=== PATIENT | male | born 1990 | race Two or more races ===

== ENCOUNTER 2021-01-10 15:57 | Inpatient (IN) | payer MEDICAID ==
[~2021-01-10] VITALS: Ht 177.8 cm; Wt 73.5 kg
[2021-01-10] MEDS ORDERED: NIFE-35 PO (16:23)
[2021-01-10] MEDS ORDERED: ONDANSETRON 4 MG/2 ML VIAL IV ONE (16:30)
[2021-01-10] MEDS ORDERED: LORAZEPAM 2 MG/1 ML VIAL IV ONE (16:30)
[2021-01-10] MEDS ORDERED: ACETAMINOPHEN 325 MG TABLET PO ONE (16:30)
[2021-01-10] MEDS ORDERED: IV NORMAL SALINE 1000 ML BAG IV ONE ×2 (16:30→17:30)
[2021-01-10] MEDS ORDERED: HYDROMORPHONE 1 MG/1 ML DISP.SYRIN IV ONE (16:30)
[2021-01-10] MEDS ORDERED: ACETAMINOPHEN 325 MG TABLET ONE (16:46)
[2021-01-10] MEDS ORDERED: HYDROMORPHONE 1 MG/1 ML DISP.SYRIN ONE (16:46)
[2021-01-10] MEDS ORDERED: LORAZEPAM 2 MG/1 ML VIAL ONE (16:47)
[2021-01-10] MEDS ORDERED: ONDANSETRON 4 MG/2 ML VIAL ONE (16:47)
[2021-01-10 16:59] LABS: BASOPHILS # (AUTO) 0.1 K/uL (0.0-8.0); BASOPHILS % (AUTO) 0.5 % (0.0-2.0); HEMATOCRIT 27.3 % (36.7-47.1); HEMOGLOBIN 8.7 g/dL (12.5-16.3); LYMPHOCYTES # (AUTO) 0.5 K/uL (20.0-40.0); LYMPHOCYTES % (AUTO) 3.9 % (20.5-51.5); MEAN CORPUSCULAR HEMOGLOBIN 30.3 uug (23.8-33.4); MEAN CORPUSCULAR HGB CONC 32 g/dL (32.5-36.3); MEAN CORPUSCULAR VOLUME 95.1 fL (73.0-96.2); MONOCYTES # (AUTO) 0.4 K/uL (2.0-10.0); MONOCYTES % (AUTO) 3.4 % (0.0-11.0); NEUTROPHILS # (AUTO) 12.1 K/uL (1.8-8.9); NEUTROPHILS % (AUTO) 92.2 % (38.5-71.5); PLATELET COUNT (AUTO) 134 K/uL (152-348); RED BLOOD CELL COUNT(AUTO) 2.87 MIL/uL (4.06-5.63); WHITE BLOOD COUNT (AUTO) 13.2 K/uL (3.6-10.2)
[2021-01-10 17:03] LABS: CREATININE 6.6 mg/dL (0.6-1.3); POTASSIUM 5.3 mmol/L (3.5-5.1)
[2021-01-10] MEDS ORDERED: DEXAMETHASONE SOD PHOSPHATE 4 MG INJ IV ONE (17:15)
[2021-01-10] MEDS ORDERED: CEFTRIAXONE 2 G in IV DEXTROSE 5% 100 ML IV ONE (17:15)
[2021-01-10] MEDS ORDERED: AZITHROMYCIN IV 500 MG in IV DEXTROSE 5% 250 ML IV ONE (17:15)
[2021-01-10 17:24] LABS: BILIRUBIN,DIRECT 0.5 mg/dL (0.0-0.2); BILIRUBIN,TOTAL 2.6 mg/dL (0.2-1.0); TOTAL PROTEIN, SERUM 6.6 g/dL (6.4-8.2)
[2021-01-10] MEDS ORDERED: CEFTRIAXONE 1 G VIAL ONE (17:24)
[2021-01-10] MEDS ORDERED: AZITHROMYCIN 500MG/ D5W 250ML IVPB **ER PYXIS ONLY IV ONE (17:24)
[2021-01-10] MEDS ORDERED: DEXAMETHASONE SOD PHOSPHATE 10 MG INJ ONE (17:24)
[2021-01-10] MEDS ORDERED: Z GUARD REMEDY PASTE 57 GM TUBE TOP PRN (18:00)
[2021-01-10] MEDS ORDERED: MAGNESIUM HYDROXIDE 30 ML LIQUID UDC PO PRN (18:00)
[2021-01-10] MEDS ORDERED: ONDANSETRON 4 MG/2 ML VIAL IV PRN (18:00)
[2021-01-10] MEDS ORDERED: ALBUTEROL SULFATE 2.5 MG/3 ML NEBU NEB PRN (18:00)
--- NOTE | 2021-01-10 18:24 | NUR ---
Patient is resting comfortably on gurney with eyes closed, pending callback from 3rd floor telemetry nurse Josie for SBAR.
--- NOTE | 2021-01-10 19:08 | NUR ---
IV normal saline bolus & IV Zithromax are still infusing, endorsed to JASON Banda accordingly
--- NOTE | 2021-01-10 19:52 | NUR ---
Patient report given to JASON Ocampo. Patient will be admitted to TELE under Dr. Fraser.
[2021-01-10 20:07] VITALS: BP 107/74
--- NOTE | 2021-01-10 20:07 | NUR ---
Received patient from ED via gurney admitted for PNA under Dr. Whiting. Patient is AAOx4. On 2L NC with O2 @ 97% denies SOB. Temp 98.8. Denies pain and discomfort at this time. Right FA IV patent and intact with NS completing. Safety measures in place, bed low and locked. PUI isolation measures in place.
[2021-01-11 00:12] VITALS: BP 119/76
[2021-01-11 04:12] VITALS: BP 130/86
[2021-01-11 06:17] LABS: BASOPHILS % (AUTO) 0.3 % (0.0-2.0); EOSINOPHILS % (AUTO) 0.2 % (0.0-7.0); HEMATOCRIT 27.6 % (36.7-47.1); HEMOGLOBIN 8.5 g/dL (12.5-16.3); LYMPHOCYTES # (AUTO) 0.5 K/uL (20.0-40.0); LYMPHOCYTES % (AUTO) 3.3 % (20.5-51.5); MEAN CORPUSCULAR HEMOGLOBIN 30.1 uug (23.8-33.4); MEAN CORPUSCULAR HGB CONC 31 g/dL (32.5-36.3); MEAN CORPUSCULAR VOLUME 97.4 fL (73.0-96.2); MONOCYTES # (AUTO) 0.4 K/uL (2.0-10.0); NEUTROPHILS # (AUTO) 13.8 K/uL (1.8-8.9); NEUTROPHILS % (AUTO) 93.2 % (38.5-71.5); PLATELET COUNT (AUTO) 127 K/uL (152-348); RED BLOOD CELL COUNT(AUTO) 2.83 MIL/uL (4.06-5.63); WHITE BLOOD COUNT (AUTO) 14.9 K/uL (3.6-10.2)
[2021-01-11 06:36] LABS: MAGNESIUM 2.3 mg/dL (1.8-2.4); PHOSPHOROUS 5.8 mg/dL (2.5-4.9); POTASSIUM 5.1 mmol/L (3.5-5.1)
--- NOTE | 2021-01-11 07:20 | NUR ---
Patient is asleep but easily arousable. On 2 Lpm via nc. Breathing even and non labored. No facial grimacing noted. Right chest permacath intact, dressing is dry. IV site on RFA intact and patent. Bed is low and locked. Safety measures maintained. Call light within reach. Will continue to monitor.
[2021-01-11 07:22] LABS: CREATININE 8.1 mg/dL (0.6-1.3)
--- NOTE | 2021-01-11 07:49 | NUR ---
RECEIVED CRITICAL LAB RESULT CREATININE 8.1, INFORMED DR. TAMMY QUIGLEY AT THIS TIME. WILL CONTINUE TO MONITOR.
[2021-01-11] MEDS: NIFEdipine XL 30 MG TABSR PO SCH ×2 (08:35→18:02)
[2021-01-11] MEDS ORDERED: VANCOMYCIN IV 500 MG in IV DEXTROSE 5% 100 ML IV PRN (10:30)
--- NOTE | 2021-01-11 10:50 | NUR ---
Received order to give Vancomycin 1250mg IV. However, [facility] dialysis nurse is here per SOFTWARE CLIENT ARCHITECT Chester's order to dialyze patient. Informed Mojgan at pharmacy said she will change dose and time. Will cont to monitor.
[2021-01-11] MEDS ORDERED: VANCOMYCIN IV 1,250 MG in IV DEXTROSE 5% 250 ML IV ONE ×2 (11:00→16:00)
--- NOTE | 2021-01-11 12:30 | NUR ---
patient at dialysis at this time. asked pt if he urinated but he said not yet. will cont to monitor.
--- NOTE | 2021-01-11 12:33 | NUR ---
Dialysis finished, with output 1 liter. Denies chest pain or sob. In no acute distress. Will continue to monitor.
--- NOTE | 2021-01-11 13:20 | NUR ---
Seen and examined by STACI Feng, report given.
--- NOTE | 2021-01-11 13:48 | NUR ---
Spoke to Katie HARRINGTON Walkmore, she will come at 5pm to do liver us. Per Chester [employer], cta may be done tomorrow. Spoke to Cherie at radiology, scheduled for 8am cta abdomen/pelvis per order. Patient needs to be npo 4-6 hours prior. Patient made aware.
[2021-01-11] MEDS: PIPERACILLIN/TAZO 2.25 G in IV DEXTROSE 5% 50 ML IV SCH ×2 (14:14→21:25)
--- NOTE | 2021-01-11 14:54 | NUR ---
Patient informed about US tech coming at 5pm today, verbalized understanding. Also made aware for tomorrow's cta abdomen and pelvis at 8am. Answered pt's questions re procedure, also signed contrast administration questionnaire and consent. Patient verbalized understanding. Will continue to monitor.
[2021-01-11 14:57] LABS: *BILIRUBIN,URIN NEGATIVE (NEGATIVE); *BLOOD, URINE 2+ (NEGATIVE); *CLARITY,URINE SLIGHTLY CLOUDY (CLEAR); *COLOR,URINE YELLOW (YELLOW); *KETONES,URINE NEGATIVE (NEGATIVE); *UROBILINOGEN,URINE 0.2 E.U./dl (NORMAL); LEUKOCYTE ESTERASE ,URINE TRACE (NEGATIVE); NITRITE, URINE NEGATIVE (NEGATIVE); PH,URINE 8.5 (5.0-8.0); UGLUCOSE 2+ (NEGATIVE)
[2021-01-11 16:19] VITALS: BP 140/88
[2021-01-11] MEDS ORDERED: NIFE-34 PO (16:49)
[2021-01-11] MEDS ORDERED: BUPR-53 PO (16:50)
[2021-01-11] MEDS ORDERED: BENA40TA8 PO (16:51)
[2021-01-11] MEDS ORDERED: LABE100T5 PO (16:51)
[2021-01-11] MEDS ORDERED: OMEP20CA15 PO (16:52)
[2021-01-11] MEDS ORDERED: FAMO20TA8 PO (16:53)
[2021-01-11] MEDS ORDERED: TRAZ-257 PO (16:54)
[2021-01-11] MEDS ORDERED: CEFTRIAXONE 1 G in IV DEXTROSE 5% 50 ML IV SCH (17:00)
[2021-01-11 17:10] LABS: BACTERIA,URINE FEW /HPF (NONE SEEN); RBC,URINE 0-3 /HPF (0-3); SQUAMOUS EPITHELIAL CELL,UR FEW /HPF (NONE SEEN); WBC,URINE 0-3 /HPF (0-3)
[2021-01-11] MEDS ORDERED: LABETALOL HCL 100 MG TABLET PO SCH (17:15)
[2021-01-11 18:00] VITALS: BP 160/112
[2021-01-11] MEDS: ACETAMINOPHEN 325 MG TABLET PO PRN (18:04)
--- NOTE | 2021-01-11 18:15 | NUR ---
checked bp and noted pt warm to touch. bp noted 160/112 and temp 100.2. procardia and tylenol prn given. Turbine Operator Chester made aware. Patient not in acute distress. Denies chest pain. Will continue to monitor.
--- NOTE | 2021-01-11 18:21 | NUR ---
CHILD DEVELOPMENT PROFESSOR Chester with new order for clonidine 0.1mg po q6hr prn for sbp>160, noted and carried out. Patient made aware. Will continue to monitor.
[2021-01-11] MEDS ORDERED: CLONIDINE HCL 0.1 MG TABLET PO PRN (18:30)
[2021-01-11] MEDS: AZITHROMYCIN IV 500 MG in IV DEXTROSE 5% 250 ML IV SCH (18:42)
--- NOTE | 2021-01-11 18:51 | NUR ---
Rechecked bp 156/97 hr90 temp 98.8. In no acute distress. Denies pain. Isolation measures maintained. Patient is comfortably watching tv. Will continue to monitor and endorse accordingly.
[2021-01-11 19:31] LABS: FERRITIN > 2000 ng/mL (26-388)
[2021-01-11 19:32] LABS: LACTATE DEHYDROGENASE 458 U/L (85-227)
[2021-01-11 20:34] VITALS: BP 136/101
[2021-01-11] MEDS: TRAZODONE 100 MG TABLET PO SCH (20:55)
[2021-01-11] MEDS: LABETALOL HCL 100 MG TABLET PO SCH (20:56)
[2021-01-11] MEDS: HEPARIN SODIUM,PORCINE 5,000 UNITS/ML VIAL SQ SCH (20:59)
--- NOTE | 2021-01-11 21:43 | NUR ---
Received patient resting in bed. No s/s of acute distress noted at this time. patient on 2L NC with O2 @ 96%, denies SOB and pain. Initial temp 100.5, providing cooling measures and rechecked 98.4 oral. Patent denies feeling febrile. Notified by lab COVID PCR Negative. Right FA IV patent and intact. Patient's family arrived to the security desk to drop off his wallet and epstein, ultimately they kept the wallet and left the patient with their ID and Medical card. Both items are at the patients bedside. Safety measures in place, bed locked in lowest position.
[2021-01-12 00:57] VITALS: BP 144/100
[2021-01-12] MEDS: HYDROCODONE/APAP 5-325MG TABLET PO PRN ×2 (03:23→15:00)
[2021-01-12] MEDS: PIPERACILLIN/TAZO 2.25 G in IV DEXTROSE 5% 50 ML IV SCH ×3 (05:03→21:15)
[2021-01-12 05:26] VITALS: BP 150/101
[2021-01-12 05:54] VITALS: BP 140/95
--- NOTE | 2021-01-12 06:41 | NUR ---
Patient resting in bed. On 2L NC O2 @ 95%, denies SOB. No s/s of acute distress noted at this time. Denies pain. Patient NPO after midnight maintained, consent for CTA Abdomen/pelvis signed and in chart. Safety measures in place and will endorse to oncoming shift.
[2021-01-12 06:54] LABS: BASOPHILS % (AUTO) 0.5 % (0.0-2.0); EOSINOPHILS # (AUTO) 0.1 K/uL (0.0-0.7); HEMATOCRIT 24.5 % (36.7-47.1); HEMOGLOBIN 7.8 g/dL (12.5-16.3); LYMPHOCYTES # (AUTO) 0.4 K/uL (20.0-40.0); LYMPHOCYTES % (AUTO) 6.6 % (20.5-51.5); MEAN CORPUSCULAR HEMOGLOBIN 30.4 uug (23.8-33.4); MEAN CORPUSCULAR HGB CONC 32 g/dL (32.5-36.3); MONOCYTES # (AUTO) 0.6 K/uL (2.0-10.0); MONOCYTES % (AUTO) 8.6 % (0.0-11.0); NEUTROPHILS # (AUTO) 5.4 K/uL (1.8-8.9); NEUTROPHILS % (AUTO) 82.3 % (38.5-71.5); PLATELET COUNT (AUTO) 108 K/uL (152-348); RED BLOOD CELL COUNT(AUTO) 2.57 MIL/uL (4.06-5.63); WHITE BLOOD COUNT (AUTO) 6.6 K/uL (3.6-10.2)
[2021-01-12 07:13] LABS: MAGNESIUM 2.2 mg/dL (1.8-2.4); PHOSPHOROUS 4.2 mg/dL (2.5-4.9); POTASSIUM 4.2 mmol/L (3.5-5.1); VANCOMYCIN,RANDOM 25.4 ug/mL (18.0-26.0)
[2021-01-12 07:17] LABS: CREATININE 7.8 mg/dL (0.6-1.3)
--- NOTE | 2021-01-12 07:35 | NUR ---
Pt in bed resting. On 2L NC saturating at 96%. Pt is A&Ox4 south sudanese speaking. No complaints of pain or discomfort. Pt has been NPO since midnight for morning CTA. Will continue to monitor, safety measures in place, bed in lowest position and call light in reach
[2021-01-12] MEDS ORDERED: IV NORMAL SALINE 250 ML IV ONE (07:50)
[2021-01-12] MEDS ORDERED: IOHEXOL 350 100 ML INFUS..BTL ONE (07:50)
[2021-01-12] MEDS ORDERED: SWABABLE VALVE TRANSFER SET EA MC ONE (07:50)
[2021-01-12] MEDS: buPROPion XL 150 MG TAB.SR.24H PO SCH (08:00)
[2021-01-12] MEDS: LABETALOL HCL 100 MG TABLET PO SCH ×2 (08:00→20:33)
[2021-01-12] MEDS: FAMOTIDINE 20 MG TABLET PO SCH (08:00)
[2021-01-12] MEDS: NIFEdipine XL 30 MG TABSR PO SCH ×2 (08:00→16:33)
[2021-01-12] MEDS: HEPARIN SODIUM,PORCINE 5,000 UNITS/ML VIAL SQ SCH (08:03)
[2021-01-12 09:20] LABS: BILIRUBIN,DIRECT 0.3 mg/dL (0.0-0.2); BILIRUBIN,TOTAL 0.9 mg/dL (0.2-1.0); TOTAL PROTEIN, SERUM 5.7 g/dL (6.4-8.2)
[2021-01-12 11:36] VITALS: BP 125/80
--- NOTE | 2021-01-12 13:49 | NUR ---
Pt just finished Dialysis. 1,100 output. BP 162/90 HR 94
[2021-01-12 16:00] VITALS: BP 141/78
[2021-01-12] MEDS: ACETAMINOPHEN 325 MG TABLET PO PRN (16:34)
[2021-01-12] MEDS: AZITHROMYCIN IV 500 MG in IV DEXTROSE 5% 250 ML IV SCH (17:29)
--- NOTE | 2021-01-12 18:39 | NUR ---
EOSR Pt laying in bed resting. Blood Culture results from 01/10/21 came back and Magda was informed. Pt is on 2L NC saturating at 96%, A&Ox4 Jamaican speaking. No acute distress noted. All medications given as ordered, all needs were met, No complaints of pain or discomfort. Safety measures in place, call light in reach. Will endorse to oncoming nurse.
[2021-01-12 20:12] VITALS: BP 117/51
[2021-01-12] MEDS: TRAZODONE 100 MG TABLET PO SCH (20:33)
[2021-01-12] MEDS ORDERED: APIXABAN 5 MG TABLET PO SCH (21:00)
[2021-01-13 00:12] VITALS: BP 109/70
[2021-01-13] MEDS: ACETAMINOPHEN 325 MG TABLET PO PRN ×2 (00:13→21:29)
[2021-01-13 04:09] VITALS: BP 124/65
[2021-01-13] MEDS: PIPERACILLIN/TAZO 2.25 G in IV DEXTROSE 5% 50 ML IV SCH (05:49)
[2021-01-13 05:50] LABS: BASOPHILS % (AUTO) 0.7 % (0.0-2.0); EOSINOPHILS # (AUTO) 0.3 K/uL (0.0-0.7); EOSINOPHILS % (AUTO) 5.3 % (0.0-7.0); HEMATOCRIT 24.9 % (36.7-47.1); HEMOGLOBIN 7.9 g/dL (12.5-16.3); LYMPHOCYTES # (AUTO) 0.6 K/uL (20.0-40.0); LYMPHOCYTES % (AUTO) 10.7 % (20.5-51.5); MEAN CORPUSCULAR HEMOGLOBIN 30.1 uug (23.8-33.4); MEAN CORPUSCULAR HGB CONC 32 g/dL (32.5-36.3); MEAN CORPUSCULAR VOLUME 94.4 fL (73.0-96.2); MONOCYTES # (AUTO) 0.7 K/uL (2.0-10.0); MONOCYTES % (AUTO) 12.1 % (0.0-11.0); NEUTROPHILS # (AUTO) 4.2 K/uL (1.8-8.9); NEUTROPHILS % (AUTO) 71.2 % (38.5-71.5); PLATELET COUNT (AUTO) 89 K/uL (152-348); RED BLOOD CELL COUNT(AUTO) 2.63 MIL/uL (4.06-5.63); WHITE BLOOD COUNT (AUTO) 5.9 K/uL (3.6-10.2)
[2021-01-13 06:00] LABS: CREATININE 7.2 mg/dL (0.6-1.3); MAGNESIUM 2.4 mg/dL (1.8-2.4); POTASSIUM 3.9 mmol/L (3.5-5.1); VANCOMYCIN,RANDOM 16.2 ug/mL (18.0-26.0)
--- NOTE | 2021-01-13 07:30 | NUR ---
Patient is received awake alert and oriented times 4. Patient is Ghanaian speaking but understands some Hebrew. Patient is on 2L of oxygen. No sign of distress noted. Safety precautions are in place. Will continue to monitor.
--- NOTE | 2021-01-13 08:30 | NUR ---
Patient, Platelet is 89. COURTESY BOOTH CASHIER aware. Will continue to monitor.
[2021-01-13] MEDS: buPROPion XL 150 MG TAB.SR.24H PO SCH (09:18)
[2021-01-13] MEDS: FAMOTIDINE 20 MG TABLET PO SCH (09:18)
[2021-01-13] MEDS: LABETALOL HCL 100 MG TABLET PO SCH ×2 (09:23→21:27)
[2021-01-13] MEDS: NIFEdipine XL 30 MG TABSR PO SCH ×2 (09:23→17:49)
--- NOTE | 2021-01-13 11:00 | NUR ---
Patient IV is infiltrated. Patient right is edematous and warm to touch. Removed IV and treated with heat pack and elevated arm. Made HARDWOOD FLOOR LAYER aware. Will try reinsertion.
[2021-01-13 11:27] VITALS: BP 140/85
--- NOTE | 2021-01-13 14:50 | NUR ---
Spoke with MD Talbot, patient has permacath removal consent signed and time out place in the chart. Will continue to monitor
[2021-01-13 15:06] VITALS: BP 113/74
[2021-01-13] MEDS ORDERED: LIDOCAINE 1%-EPI 1:100,000 20 ML VIAL IJ ONE (16:45)
[2021-01-13] MEDS ORDERED: MORPHINE SULFATE 4 MG/1 ML DISP.SYRIN IV ONE (16:45)
--- NOTE | 2021-01-13 17:00 | NUR ---
MD did not need for procedure. Was able to remove catheter without lidocaine. Will continue to monitor.
[2021-01-13] MEDS: AZITHROMYCIN 250 MG TABLET PO SCH (17:49)
--- NOTE | 2021-01-13 19:05 | NUR ---
Permacath was removed in a bedside procedure. Patient tolerated procedure well. Patient is not resting in bed with no sign of distress noted. Gave all medications as ordered. Will endorse to the oncoming nurse.
--- NOTE | 2021-01-13 20:00 | NUR ---
resting in bed, no acute distress noted, ,alert ,oriented x4, skin intact , warm to touch.on tele sinus,76, oxygen inhal.at 2l/min via nc.voided freely well.no dialysis access at present.platelet count 89, will recheck in am.
[2021-01-13 20:16] VITALS: BP 175/89
[2021-01-13] MEDS: HYDROCODONE/APAP 5-325MG TABLET PO PRN (20:22)
--- NOTE | 2021-01-13 21:00 | NUR ---
temp at this time 100.5, tylenol given as ordered, cooling measures done.,air conditioning unit regulated.,iv site intact and patent on left wrist.
[2021-01-13] MEDS: TRAZODONE 100 MG TABLET PO SCH (21:34)
[2021-01-14] VITALS (7 sets, daily range): BP systolic 118–138; BP diastolic 70–83
--- NOTE | 2021-01-14 02:17 | NUR ---
slept on and off,dressing on right upper chest intact and dry.norco given earlier effective.
[2021-01-14 07:03] LABS: BASOPHILS % (AUTO) 0.7 % (0.0-2.0); EOSINOPHILS # (AUTO) 0.4 K/uL (0.0-0.7); EOSINOPHILS % (AUTO) 5.4 % (0.0-7.0); HEMOGLOBIN 8.5 g/dL (12.5-16.3); LYMPHOCYTES # (AUTO) 0.8 K/uL (20.0-40.0); LYMPHOCYTES % (AUTO) 12.2 % (20.5-51.5); MEAN CORPUSCULAR HEMOGLOBIN 30.7 uug (23.8-33.4); MEAN CORPUSCULAR HGB CONC 33 g/dL (32.5-36.3); MONOCYTES # (AUTO) 0.8 K/uL (2.0-10.0); MONOCYTES % (AUTO) 11.5 % (0.0-11.0); NEUTROPHILS # (AUTO) 4.8 K/uL (1.8-8.9); NEUTROPHILS % (AUTO) 70.2 % (38.5-71.5); PLATELET COUNT (AUTO) 93 K/uL (152-348); RED BLOOD CELL COUNT(AUTO) 2.76 MIL/uL (4.06-5.63); WHITE BLOOD COUNT (AUTO) 6.8 K/uL (3.6-10.2)
[2021-01-14 07:16] LABS: MAGNESIUM 2.6 mg/dL (1.8-2.4); PHOSPHOROUS 6.9 mg/dL (2.5-4.9); POTASSIUM 3.9 mmol/L (3.5-5.1)
[2021-01-14 07:31] LABS: CREATININE 9.9 mg/dL (0.6-1.3)
--- NOTE | 2021-01-14 08:00 | NUR ---
received report on pt, awake alert and oriented x4, pt on 2L O2 saturating at 97%, no signs of distress, no reports of pain noted. pt ambulatory to restroom, steady gait. Pt has IV access on the left wrist 20g. bed in low and locked position, call light within reach, safety precautions in place, will continue with plan of care.
--- NOTE | 2021-01-14 09:00 | NUR ---
pt went down for procedure
[2021-01-14 09:56] LABS: EOSINOPHILS % (MANUAL) 8 % (0-8); LYMPHOCYTES % (MANUAL) 14 % (20-40); MONOCYTES % (MANUAL) 9 % (2-10); NEUTROPHILS % (MANUAL) 69 % (42-75)
[2021-01-14] MEDS: LABETALOL HCL 100 MG TABLET PO SCH ×2 (09:59→20:37)
[2021-01-14] MEDS: FAMOTIDINE 20 MG TABLET PO SCH (09:59)
[2021-01-14] MEDS: NIFEdipine XL 30 MG TABSR PO SCH ×2 (09:59→18:05)
[2021-01-14] MEDS: buPROPion XL 150 MG TAB.SR.24H PO SCH (10:00)
[2021-01-14] MEDS: AZITHROMYCIN 250 MG TABLET PO SCH (18:05)
--- NOTE | 2021-01-14 19:04 | NUR ---
pt in bed resting, A/Ox4, on 2L of O2 saturating at 98, no signs of distress, no reports of pain noted. pt ambulatory, urinal at bedside, IV access on the left wrist 20g intact patent. all medications given, beninese speaking, cooperative, bed in low and locked position, call light within reach, safety precautions in place, will endorse to oncoming nurse.
--- NOTE | 2021-01-14 20:00 | NUR ---
AWAKE ALERT X3 SPEAKS KINYARWANDA.NO COMPLAINTS VITAL SIGNS WITHIN NORMAL REACH.RIGHT CHEST DRESSING CHANGEDNO COMPLAINTS MADE.
[2021-01-14] MEDS: TRAZODONE 100 MG TABLET PO SCH (20:37)
[2021-01-15 00:08] VITALS: BP 127/72
[2021-01-15 04:12] VITALS: BP 126/72
[2021-01-15 06:14] LABS: BASOPHILS # (AUTO) 0.1 K/uL (0.0-8.0); BASOPHILS % (AUTO) 0.9 % (0.0-2.0); EOSINOPHILS # (AUTO) 0.7 K/uL (0.0-0.7); EOSINOPHILS % (AUTO) 11.6 % (0.0-7.0); HEMATOCRIT 25.8 % (36.7-47.1); HEMOGLOBIN 8.4 g/dL (12.5-16.3); LYMPHOCYTES % (AUTO) 18.5 % (20.5-51.5); MEAN CORPUSCULAR HEMOGLOBIN 30.5 uug (23.8-33.4); MEAN CORPUSCULAR HGB CONC 32 g/dL (32.5-36.3); MONOCYTES # (AUTO) 0.8 K/uL (2.0-10.0); MONOCYTES % (AUTO) 13.6 % (0.0-11.0); NEUTROPHILS # (AUTO) 3.1 K/uL (1.8-8.9); NEUTROPHILS % (AUTO) 55.4 % (38.5-71.5); PLATELET COUNT (AUTO) 109 K/uL (152-348); RED BLOOD CELL COUNT(AUTO) 2.74 MIL/uL (4.06-5.63); WHITE BLOOD COUNT (AUTO) 5.6 K/uL (3.6-10.2)
[2021-01-15 06:28] LABS: MAGNESIUM 2.8 mg/dL (1.8-2.4); PHOSPHOROUS 7.7 mg/dL (2.5-4.9); POTASSIUM 3.7 mmol/L (3.5-5.1)
[2021-01-15 06:36] LABS: CREATININE 11.8 mg/dL (0.6-1.3)
[2021-01-15] MEDS: LABETALOL HCL 100 MG TABLET PO SCH ×2 (08:20→20:20)
[2021-01-15] MEDS: buPROPion XL 150 MG TAB.SR.24H PO SCH (08:21)
[2021-01-15] MEDS: FAMOTIDINE 20 MG TABLET PO SCH (08:21)
[2021-01-15] MEDS: NIFEdipine XL 30 MG TABSR PO SCH ×2 (08:21→17:43)
--- NOTE | 2021-01-15 11:00 | NUR ---
SPOKE WITH DR. ESTES & James PETERS LIFE SCIENCES TEACHER TODAY RE POSSIBLE INSERTION OF PERMACATH TOMORROW. VERBALIZED UNDERSTANDING.
[2021-01-15 11:52] VITALS: BP 145/94
[2021-01-15 16:00] VITALS: BP 140/87
[2021-01-15] MEDS: TRAZODONE 100 MG TABLET PO SCH (20:19)
[2021-01-15 20:20] VITALS: BP 136/85
--- NOTE | 2021-01-15 21:00 | NUR ---
Received patient resting in bed, AAOx4. No s/s of acute distress noted at this time. Patient on 2L NC denies SOB. Right chest dressing clean, dry, and intact. Left wrist 20g IV patent and intact. Safety measures in place, bed locked and in lowest position.
[2021-01-16 00:10] VITALS: BP 147/92
[2021-01-16 04:25] VITALS: BP 141/88
[2021-01-16 06:23] LABS: HEPATITIS B SURFACE AG NEGATVE
[2021-01-16 06:24] LABS: HEPATITIS B SURFACE AB REACTIVE
[2021-01-16 06:30] LABS: BASOPHILS # (AUTO) 0.1 K/uL (0.0-8.0); BASOPHILS % (AUTO) 1.4 % (0.0-2.0); EOSINOPHILS # (AUTO) 0.7 K/uL (0.0-0.7); EOSINOPHILS % (AUTO) 15.1 % (0.0-7.0); HEMATOCRIT 27.8 % (36.7-47.1); HEMOGLOBIN 8.9 g/dL (12.5-16.3); LYMPHOCYTES # (AUTO) 1.2 K/uL (20.0-40.0); LYMPHOCYTES % (AUTO) 23.4 % (20.5-51.5); MEAN CORPUSCULAR HEMOGLOBIN 30.1 uug (23.8-33.4); MEAN CORPUSCULAR HGB CONC 32 g/dL (32.5-36.3); MEAN CORPUSCULAR VOLUME 93.8 fL (73.0-96.2); MONOCYTES # (AUTO) 0.6 K/uL (2.0-10.0); MONOCYTES % (AUTO) 12.4 % (0.0-11.0); NEUTROPHILS # (AUTO) 2.4 K/uL (1.8-8.9); NEUTROPHILS % (AUTO) 47.7 % (38.5-71.5); PLATELET COUNT (AUTO) 142 K/uL (152-348); RED BLOOD CELL COUNT(AUTO) 2.96 MIL/uL (4.06-5.63); WHITE BLOOD COUNT (AUTO) 4.9 K/uL (3.6-10.2)
[2021-01-16 06:58] LABS: POTASSIUM 3.7 mmol/L (3.5-5.1)
[2021-01-16 07:06] LABS: CREATININE 13.7 mg/dL (0.6-1.3)
--- NOTE | 2021-01-16 07:14 | NUR ---
Critical lab results received, Creatinine 13.7 and phosphorous 9.0. Notified physician cork insulation installer, Darin Rouse NP. No new orders at this time, will endorse to oncoming shift.
[2021-01-16 08:00] VITALS: BP 146/91
--- NOTE | 2021-01-16 08:00 | NUR ---
Received change of shift report on pt. awake alert and oriented x4. on tele monitor NSR, pt on O2 via NC at 2L, pt keeps it on intermittently but is saturating well at 95%. pt ambulatory with BRP, steady gait. IV access on the left wrist 20g saline lock. Pt has dressing where old permacath was removed, clean dry and intact. pt cooperative, bed in low and locked position, no reports of pain no signs of distress, call light within reach, will continue with plan of care.
[2021-01-16] MEDS: FAMOTIDINE 20 MG TABLET PO SCH (09:00)
[2021-01-16] MEDS: NIFEdipine XL 30 MG TABSR PO SCH ×2 (09:00→16:58)
[2021-01-16] MEDS: buPROPion XL 150 MG TAB.SR.24H PO SCH (09:00)
[2021-01-16] MEDS: LABETALOL HCL 100 MG TABLET PO SCH ×2 (09:01→20:33)
[2021-01-16] MEDS ORDERED: VANCOMYCIN IV 1,000 MG in IV DEXTROSE 5% 250 ML IV ONE (10:00)
[2021-01-16] MEDS ORDERED: BISACODYL 5 MG TABLET.DR PO ONE ×2 (11:15→11:30)
[2021-01-16 11:34] VITALS: BP 153/96
--- NOTE | 2021-01-16 13:01 | NUR ---
WOUND CARE CONSULT: PT HAS DRY INTACT DRESSING TO RT CHEST WHERE HE HAD PREVIOUS DIALYSIS CATH. NO DRAINAGE NOTED. DEFER TO PMD. PT IS INDEPENDENT WITH BED MOBILITY. CURRENT NADINE SCORE IS 22. WILL SEE PRN.
[2021-01-16] MEDS ORDERED: MORPHINE SULFATE 4 MG/1 ML DISP.SYRIN IV ONE (13:45)
[2021-01-16 16:00] VITALS: BP 159/99
[2021-01-16] MEDS: HYDROCODONE/APAP 5-325MG TABLET PO PRN (16:58)
[2021-01-16] MEDS: TRAZODONE 100 MG TABLET PO SCH (20:33)
[2021-01-16 21:15] VITALS: BP 147/87
--- NOTE | 2021-01-16 22:00 | NUR ---
took over care for this pt, no acute distress noted, alert and oriented,needs attended to.anita cath on left chest wall,dressing dry and intact.for dialysis in am. ct angiogram to be done after dialysis.
[2021-01-17 00:06] VITALS: BP 145/88
[2021-01-17] MEDS: HYDROCODONE/APAP 5-325MG TABLET PO PRN ×2 (00:29→05:50)
--- NOTE | 2021-01-17 00:29 | NUR ---
equested norco tablet for abdominal pain,given as ordered and relief afforded.slept intermittently.
[2021-01-17 04:06] VITALS: BP 146/91
[2021-01-17 06:35] LABS: BASOPHILS # (AUTO) 0.1 K/uL (0.0-8.0); BASOPHILS % (AUTO) 1.2 % (0.0-2.0); EOSINOPHILS # (AUTO) 0.7 K/uL (0.0-0.7); EOSINOPHILS % (AUTO) 11.8 % (0.0-7.0); HEMOGLOBIN 9.7 g/dL (12.5-16.3); LYMPHOCYTES # (AUTO) 1.2 K/uL (20.0-40.0); LYMPHOCYTES % (AUTO) 18.2 % (20.5-51.5); MEAN CORPUSCULAR HEMOGLOBIN 30.2 uug (23.8-33.4); MEAN CORPUSCULAR HGB CONC 32 g/dL (32.5-36.3); MEAN CORPUSCULAR VOLUME 93.5 fL (73.0-96.2); MONOCYTES # (AUTO) 0.5 K/uL (2.0-10.0); MONOCYTES % (AUTO) 8.4 % (0.0-11.0); NEUTROPHILS # (AUTO) 3.8 K/uL (1.8-8.9); NEUTROPHILS % (AUTO) 60.4 % (38.5-71.5); PLATELET COUNT (AUTO) 190 K/uL (152-348); RED BLOOD CELL COUNT(AUTO) 3.21 MIL/uL (4.06-5.63); WHITE BLOOD COUNT (AUTO) 6.4 K/uL (3.6-10.2)
[2021-01-17 06:52] LABS: MAGNESIUM 3.1 mg/dL (1.8-2.4); POTASSIUM 4.3 mmol/L (3.5-5.1)
[2021-01-17 06:55] LABS: CREATININE 15.2 mg/dL (0.6-1.3); PHOSPHOROUS 10.5 mg/dL (2.5-4.9)
[2021-01-17 08:00] VITALS: BP 137/89
--- NOTE | 2021-01-17 08:00 | NUR ---
AWAKE ALERT AND ORIENTED X3 NO SS OF PAIN OR SOB. PATIENT PUT ON O2 AT 2L NC IN SPITE OF O2 SAT AT 96-98%.
[2021-01-17] MEDS ORDERED: IOHEXOL 350 100 ML INFUS..BTL ONE (08:09)
[2021-01-17] MEDS ORDERED: SWABABLE VALVE TRANSFER SET EA MC ONE (08:10)
[2021-01-17] MEDS ORDERED: IV NORMAL SALINE 250 ML IV ONE (08:10)
--- NOTE | 2021-01-17 08:15 | NUR ---
Dialysis done with Fluid removed of 1500 ml.BP noted 158/100.BP medication given.Patient denies pain, no s/s of distress noted. Anxious to go home.Removed Iv on left wrist.D/c telemonitor.Patient refused to recheck BP.Stated he will recheck it once he gets home.Discharged instructions given to patient as well as belonging.All d/c papers were sign by patient. Addendum: 01/17/21 at 2240 by EFRAIN JEFFERSON RN TIME ERROR -TIME CHANGED 2009 Dialysis done with Fluid removed of 1500 ml.BP noted 158/100.BP medication given.Patient denies pain, no s/s of distress noted. Anxious to go home.Removed Iv on left wrist.D/c telemonitor.Patient refused to recheck BP.Stated he will recheck it once he gets home.Discharged instructions given to patient as well as belonging.All d/c papers were sign by patient.
[2021-01-17] MEDS ORDERED: APIXABAN 5 MG TABLET PO SCH (09:00)
[2021-01-17] MEDS: FAMOTIDINE 20 MG TABLET PO SCH (09:20)
[2021-01-17] MEDS: LABETALOL HCL 100 MG TABLET PO SCH ×2 (09:20→20:00)
[2021-01-17] MEDS: buPROPion XL 150 MG TAB.SR.24H PO SCH (09:20)
[2021-01-17] MEDS: NIFEdipine XL 30 MG TABSR PO SCH ×2 (09:21→16:47)
[2021-01-17] MEDS ORDERED: VANC500P5 HE (11:28)
[2021-01-17] MEDS ORDERED: NIFE-34 PO (11:39)
[2021-01-17] MEDS ORDERED: LABE100T5 PO (11:39)
--- NOTE | 2021-01-17 12:00 | NUR ---
SEEN BY DR MUNOZ AWAITING HEMODIALYSIS THEN DISCHARGE
[2021-01-17 12:45] VITALS: BP 144/86
--- NOTE | 2021-01-17 16:00 | NUR ---
HEMODIALYSIS STARTED AT THE BEDSIDE. OBSERVED
--- NOTE | 2021-01-17 16:07 | NUR ---
PATIENT CAN BE DISCHARGED AFTER HD
[2021-01-17 17:02] VITALS: BP 149/94
--- NOTE | 2021-01-17 19:15 | NUR ---
Received patient in bed.AALOx4. on going dialysis. Patient is aware that he will be discharged today.Iv on left wrist in place. Will continue to monitor.
[2021-01-17 20:00] VITALS: BP 158/100
--- NOTE | 2021-01-17 20:15 | NUR ---
Dialysis done with Fluid removed of 1500 ml.BP noted 158/100.BP medication given.Patient denies pain, no s/s of distress noted. Anxious to go home.Removed Iv on left wrist.D/c telemonitor.Patient refused to recheck BP.Stated he will recheck it once he gets home.Discharged instructions given to patient as well as all his belonging.All d/c papers were sign by patient.
== END 2021-01-17 20:15 | disposition home or self-care (01) | DRG 721 ==
LOC: EDBD 16:02 → ER 16:02 → TELE3 19:45 → MEDSURG3 20:24 → TELE3 22:50
PROVIDERS: ADMIT Nurse Practitioner Acute Care; ATTEND Nurse Practitioner Acute Care
PROC: 5A1D70Z Performance of Urinary Filtration, Intermittent, Less than 6 Hours Per Day (ICD-10-PCS; principal; 2021-01-11)
PROC: 05PYX3Z Removal of Infusion Device from Upper Vein, External Approach (ICD-10-PCS; 2021-01-13)
PROC: 02H633Z Insertion of Infusion Device into Right Atrium, Percutaneous Approach (ICD-10-PCS; 2021-01-16)
DX: T80.211A Bloodstream infection due to central venous catheter, initial encounter (principal); A41.01 Sepsis due to Methicillin susceptible Staphylococcus aureus; J18.9 Pneumonia, unspecified organism; I21.A1 Myocardial infarction type 2; I12.0 Hypertensive chronic kidney disease with stage 5 chronic kidney disease or end stage renal disease; N18.6 End stage renal disease; Z99.2 Dependence on renal dialysis; I25.2 Old myocardial infarction; K72.00 Acute and subacute hepatic failure without coma; R74.01 Elevation of levels of liver transaminase levels; D69.59 Other secondary thrombocytopenia; I31.3 Pericardial effusion (noninflammatory); Y84.8 Other medical procedures as the cause of abnormal reaction of the patient, or of later complication, without mention of misadventure at the time of the procedure; Z20.822 Contact with and (suspected) exposure to COVID-19; Y92.89 Other specified places as the place of occurrence of the external cause; D63.1 Anemia in chronic kidney disease
CPT/HCPCS: 36415; 70030-TC; 71045; 71250; 71275; 76705; 83605; 83615; 83690; 83735; 84100; 85025; 85730; 86140; 86706; 87040; 87077; 87340; 90937; 93005; 93307; A4663; G0378; J0456; J0696; J1100; J1170; J1644; J2060; J2270; J2405; J2543; J3370; J3490; J7030; J7040; J7050; J7060; Q0144; Q9967; U0003

== ENCOUNTER 2021-02-25 22:19 | Inpatient (IN) | payer MEDICAID ==
[~2021-02-25] VITALS: Ht 172.7 cm; Wt 69.5 kg
[~2021-02-25 22:19] MED LIST: AMLO10TA59 PO; BENA40TA8 PO; BUPR-53 PO; CLON0.1T14 PO; FAMO20TA8 PO; LABE100T5 PO; NIFE-34 PO; OMEP20CA15 PO; PANT40TA2 PO; SEVE800T7 PO; SIMV10TA98 PO; TRAZ-257 PO; VANC500P5 HE
--- NOTE | 2021-02-25 22:40 | NUR ---
Dr. Colon at bedside, MSE in progress.
[2021-02-25] MEDS: hydrALAZINE HCL 20 MG/1 ML VIAL IV ONE ×2 (22:55→23:00)
[2021-02-25] MEDS ORDERED: ONDANSETRON 4 MG/2 ML VIAL IV ONE (23:00)
[2021-02-25] MEDS ORDERED: LABETALOL HCL 100 MG/20 ML VIAL IV ONE (23:00)
[2021-02-25] MEDS ORDERED: HYDROMORPHONE 1 MG/1 ML DISP.SYRIN IV ONE (23:00)
[2021-02-25] MEDS ORDERED: HYDROMORPHONE 1 MG/1 ML DISP.SYRIN ONE (23:04)
[2021-02-25] MEDS ORDERED: ONDANSETRON 4 MG/2 ML VIAL ONE (23:04)
[2021-02-25] MEDS ORDERED: hydrALAZINE HCL 20 MG/1 ML VIAL ONE (23:04)
[2021-02-25 23:23] LABS: BASOPHILS # (AUTO) 0.1 K/uL (0.0-8.0); BASOPHILS % (AUTO) 0.7 % (0.0-2.0); EOSINOPHILS # (AUTO) 0.4 K/uL (0.0-0.7); EOSINOPHILS % (AUTO) 4.8 % (0.0-7.0); HEMATOCRIT 31.1 % (36.7-47.1); LYMPHOCYTES # (AUTO) 0.6 K/uL (20.0-40.0); LYMPHOCYTES % (AUTO) 7.6 % (20.5-51.5); MEAN CORPUSCULAR HEMOGLOBIN 30.8 uug (23.8-33.4); MEAN CORPUSCULAR HGB CONC 32 g/dL (32.5-36.3); MEAN CORPUSCULAR VOLUME 95.6 fL (73.0-96.2); MONOCYTES # (AUTO) 0.4 K/uL (2.0-10.0); MONOCYTES % (AUTO) 5.4 % (0.0-11.0); NEUTROPHILS # (AUTO) 6.7 K/uL (1.8-8.9); NEUTROPHILS % (AUTO) 81.5 % (38.5-71.5); PLATELET COUNT (AUTO) 132 K/uL (152-348); RED BLOOD CELL COUNT(AUTO) 3.26 MIL/uL (4.06-5.63); WHITE BLOOD COUNT (AUTO) 8.2 K/uL (3.6-10.2)
[2021-02-25] MEDS ORDERED: LABETALOL HCL 100 MG/20 ML VIAL ONE (23:25)
[2021-02-25 23:41] LABS: POTASSIUM 6.3 mmol/L (3.5-5.1)
[2021-02-25 23:42] LABS: CREATININE 10.5 mg/dL (0.6-1.3)
[2021-02-25] MEDS ORDERED: ALBUTEROL SULFATE 2.5 MG/3 ML NEBU NEB ONE (23:45)
[2021-02-25] MEDS ORDERED: LORAZEPAM 2 MG/1 ML VIAL ONE (23:45)
[2021-02-25] MEDS ORDERED: SODIUM BICARBONATE 8.4% 50 MEQ/50 ML DISP.SYRIN IV ONE (23:45)
[2021-02-25] MEDS ORDERED: INSULIN REGULAR, HUMAN 300 UNIT/3 ML VIAL IV ONE (23:45)
[2021-02-25] MEDS ORDERED: LORAZEPAM 2 MG/1 ML VIAL IV ONE (23:45)
[2021-02-25] MEDS ORDERED: DEXTROSE 50% 50 ML DISP.SYRIN IV ONE (23:45)
[2021-02-25] MEDS ORDERED: DEXTROSE 50% 50 ML DISP.SYRIN ONE (23:59)
[2021-02-26] VITALS (13 sets, daily range): BP systolic 141–192; BP diastolic 82–123
[2021-02-26] MEDS ORDERED: INSULIN REGULAR, HUMAN 300 UNIT/3 ML VIAL ONE
[2021-02-26 00:01] LABS: ABG BASE EXCESS -3.7 mmol/L; ABG HCO3 18.5 mmol/L; ABG PCO2 25.4 mmHg (35.0-45.0); ABG PH 7.481 (7.350-7.450); ABG PO2 54.1 mmHg (75.0-100.0); ABG SITE RIGHT RADIAL; ABG TOTAL HEMOGLOBIN 11.2 G/dL (13.5-18.0); COHb 0.6 % (0.5-1.5); MetHb 0.2 % (0.0-1.5); O2Hb 87.2 % (94.0-97.0); VENT MODE Nasal Cannula
[2021-02-26] MEDS ORDERED: SODIUM BICARBONATE 8.4% 50 MEQ/50 ML DISP.SYRIN IV ONE (00:01)
[2021-02-26] MEDS ORDERED: ALBUTEROL SULFATE 2.5 MG/ 0.5 ML NEBU ONE (00:14)
[2021-02-26] MEDS ORDERED: NITROGLYCERIN OINT 1 GM PACKET TP ONE ×2 (00:15)
[2021-02-26] MEDS ORDERED: LABETALOL HCL 100 MG/20 ML VIAL IV ONE ×3 (00:15→02:30)
[2021-02-26] MEDS ORDERED: hydrALAZINE HCL 20 MG/1 ML VIAL IV ONE ×3 (00:15→02:30)
[2021-02-26] MEDS ORDERED: hydrALAZINE HCL 20 MG/1 ML VIAL ONE ×3 (00:16→02:37)
[2021-02-26] MEDS ORDERED: LABETALOL HCL 100 MG/20 ML VIAL ONE (00:16)
--- NOTE | 2021-02-26 01:02 | NUR ---
Dr. Colon speaking with Dr. Emmy Nguyen on telephone.
[2021-02-26] MEDS ORDERED: LORAZEPAM 2 MG/1 ML VIAL IV ONE (01:45)
[2021-02-26] MEDS ORDERED: LORAZEPAM 2 MG/1 ML VIAL ONE (01:48)
--- NOTE | 2021-02-26 01:59 | NUR ---
Neftali echeverria, Magda Ramirez NP construction producer.
--- NOTE | 2021-02-26 02:30 | NUR ---
Per Dr. Colon, spoke with Magda Ramirez and came to aggrement to cancel CTA at this time.
--- NOTE | 2021-02-26 02:38 | NUR ---
Pt. admitted to [facility], under care of Dr. Magda Ramirez Dx: hypertensive crisis and ESRD Belongs List completed MRSA swab done
[2021-02-26] MEDS ORDERED: ONDANSETRON 4 MG/2 ML VIAL IV PRN (03:00)
[2021-02-26] MEDS ORDERED: MAGNESIUM HYDROXIDE 30 ML LIQUID UDC PO PRN (03:00)
[2021-02-26] MEDS ORDERED: Z GUARD REMEDY PASTE 57 GM TUBE TOP PRN (03:00)
--- NOTE | 2021-02-26 03:05 | NUR ---
Gave report to esther nurseGeorge.
--- NOTE | 2021-02-26 03:35 | NUR ---
Pt. admitted to CCU, under care of Dr. Magda Ramirez Dx: hypertensis crisis, ESRD Belongs List completed
--- NOTE | 2021-02-26 03:40 | NUR ---
Report given to Jf in CCU
[2021-02-26] MEDS: HYDROCODONE/APAP 5-325MG TABLET PO PRN ×4 (04:07→22:13)
[2021-02-26] MEDS: ACETAMINOPHEN 325 MG TABLET PO PRN (04:26)
--- NOTE | 2021-02-26 05:00 | NUR ---
Admitted to CCU 1 as DARSHAN overflow; pt is situated in bed; kept safe; oriented to room; pt appears restless initially; c/o pain and was given [place]; pt had low grade temp of 100.3 so additional tylenol was given; placed on 10L O2 but keeps on removing oxygen mask; placed on 5L NC and saturating 98 and appears comfortable;
[2021-02-26] MEDS: hydrALAZINE HCL 20 MG/1 ML VIAL IV PRN ×4 (06:04→23:02)
--- NOTE | 2021-02-26 06:08 | NUR ---
hydralazine 10 mg given IVP for bp 191/132; RADHA Aquino RN was contacted regarding HD and will arrange for it. ETA 1-2 hours.
[2021-02-26] MEDS: LABETALOL HCL 200 MG TABLET PO SCH ×2 (08:28→20:27)
[2021-02-26] MEDS ORDERED: NIFEdipine XL 60 MG TABSR PO SCH (09:00)
[2021-02-26] MEDS ORDERED: BENAZEPRIL HCL 10 MG TABLET PO SCH (09:00)
[2021-02-26] MEDS ORDERED: BENAZEPRIL HCL 20 MG TABLET PO SCH (09:00)
--- NOTE | 2021-02-26 10:59 | NUR ---
first met this am, alert, oriented, appeared sleepy. woke up for breakfast, then fell asleep right away. Denied discomfort, nor pain on Left shoulder. closely monitored bp, despite of the Procardia XL , 60mg, and Labetalol 200mg po, given, bp still did not trend down that much. 1030am bp 191/114, Hydralazine 10mg ivp given 1050, dialysis begins.
--- NOTE | 2021-02-26 12:45 | NUR ---
while on dialysis, the nurse changed the dressing on L humaira anita, around the site, some pus noticeable. plumbing and heating mechanic Scott Whiting, made aware attending, dr Jung called via physician exchange. 12noon, bp trending down to 156/83, with HR 83, after being dialysed for 2hrs.
[2021-02-26] MEDS: hydrALAZINE HCL 50 MG TABLET PO SCH ×2 (13:08→21:46)
--- NOTE | 2021-02-26 13:10 | NUR ---
1300, hemodialysis completed, uneventfully. wide awake, and eating lunch, about 50% consumption. 2.6liters out, bp down to 141/82 with HR 99
[2021-02-26] MEDS ORDERED: hydrALAZINE HCL 25 MG TABLET PO SCH (14:00)
--- NOTE | 2021-02-26 16:01 | NUR ---
1425. c/o Left shoulder pain, 5-6/10. One po Dorr given with relief 1600. spiking temp 99, no void , bp trending down 159/87, with HR 99. On 3liter NC, sat 99%. per medical customer service representative, dr Whiting, " will call surgery to assess pus around the site of Left chest perma cath"
--- NOTE | 2021-02-26 16:46 | NUR ---
1630 letitia 160/97 with HR 99, 10mg ivp Hydralazine given asking for pain meds on Left shoulder, made aware, next dose 6pm, if still needed.
--- NOTE | 2021-02-26 17:47 | NUR ---
1744, called and requested anxiety medicine which was discontinued since last nite. his attending paged via physicians exchange, per exchange, Devaughn Sexton NP financial services education consultant. awaiting the call back .
[2021-02-26] MEDS: LORAZEPAM 1 MG TABLET PO PRN (18:22)
--- NOTE | 2021-02-26 18:29 | NUR ---
1814 attending stopped by, made aware of the patient's anxiety, and bp , so far not controlled. 1829 ativan one mg, po given again complained of pain on Left shoulder, 04/25, one po [place] given For bp meds, besides Hydralazine 10mg ivp, it can alternate with Clonidine 0.1mg, po if needed, oncoming shift made aware
[2021-02-26] MEDS: CLONIDINE HCL 0.1 MG TABLET PO PRN (18:48)
--- NOTE | 2021-02-26 19:05 | NUR ---
Received patient in bed resting well. Patient is Mauritian speaking, is alert and can communicate his needs well. Patient is currently hypertensive after receiving PRN hydralazine and clonidine, 169/98. Sinus rhythm on the monitor in the high 90s. Patient is on 3L NC, no sign of SOB or signs of distress. Left chest PermCath in place, received hemodialysis this AM with 2,600mL removed. Left AC 20g and Left wrist 20g peripheral IV present, currently saline-lock. Plan of care is management of hypertension, anxiety,and pain. No [place] present as patient is anuric.
--- NOTE | 2021-02-26 22:34 | NUR ---
Received call from Micha the dialysis nurse informing me that the patient is scheduled for another hemodialysis treatment in the AM and he will be in the unit around 0600.
[2021-02-27] VITALS (10 sets, daily range): BP systolic 103–187; BP diastolic 63–116
[2021-02-27] MEDS: HYDROCODONE/APAP 5-325MG TABLET PO PRN ×3 (02:29→21:23)
[2021-02-27] MEDS: CLONIDINE HCL 0.1 MG TABLET PO PRN (03:25)
[2021-02-27 05:06] LABS: BASOPHILS % (AUTO) 0.7 % (0.0-2.0); EOSINOPHILS % (AUTO) 3.8 % (0.0-7.0); HEMOGLOBIN 9.2 g/dL (12.5-16.3); LYMPHOCYTES % (AUTO) 7.6 % (20.5-51.5); MEAN CORPUSCULAR HEMOGLOBIN 30.7 uug (23.8-33.4); MEAN CORPUSCULAR HGB CONC 32 g/dL (32.5-36.3); MEAN CORPUSCULAR VOLUME 96.3 fL (73.0-96.2); MONOCYTES % (AUTO) 7.2 % (0.0-11.0); NEUTROPHILS % (AUTO) 80.7 % (38.5-71.5); PLATELET COUNT (AUTO) 105 K/uL (152-348); RED BLOOD CELL COUNT(AUTO) 3.01 MIL/uL (4.06-5.63); WHITE BLOOD COUNT (AUTO) 7.1 K/uL (3.6-10.2)
[2021-02-27 05:07] LABS: BASOPHILS # (AUTO) 0.1 K/uL (0.0-8.0); EOSINOPHILS # (AUTO) 0.3 K/uL (0.0-0.7); LYMPHOCYTES # (AUTO) 0.5 K/uL (20.0-40.0); MONOCYTES # (AUTO) 0.5 K/uL (2.0-10.0); NEUTROPHILS # (AUTO) 5.7 K/uL (1.8-8.9)
[2021-02-27 05:16] LABS: MAGNESIUM 2.2 mg/dL (1.8-2.4); PHOSPHOROUS 5.6 mg/dL (2.5-4.9); POTASSIUM 5.1 mmol/L (3.5-5.1)
[2021-02-27] MEDS: hydrALAZINE HCL 50 MG TABLET PO SCH ×4 (05:36→17:24)
[2021-02-27] MEDS: LORAZEPAM 1 MG TABLET PO PRN ×3 (05:44→23:41)
--- NOTE | 2021-02-27 06:00 | NUR ---
Patient transferred to room 320 DARSHAN. Patient remains in this nurse's care.
[2021-02-27] MEDS: hydrALAZINE HCL 20 MG/1 ML VIAL IV PRN (06:01)
[2021-02-27] MEDS: LABETALOL HCL 200 MG TABLET PO SCH ×3 (08:09→17:25)
[2021-02-27] MEDS: ISOSORBIDE MONONITRATE 30 MG TAB.SR.24H PO SCH (08:10)
[2021-02-27] MEDS: NIFEdipine XL 60 MG TABSR PO SCH ×2 (08:10→21:17)
[2021-02-27] MEDS ORDERED: NIFE5POW MC (14:57)
[2021-02-27] MEDS ORDERED: METO-356 PO (14:57)
[2021-02-27] MEDS ORDERED: LABE100T5 PO (14:57)
--- NOTE | 2021-02-27 18:40 | NUR ---
Patient cooperative with care throughout shift. Patient tolerated dialysis with 2500cc fluid removed. Taking medications as ordered. No distress noted at this time, bed in low position, side rails upx2.
--- NOTE | 2021-02-27 20:30 | NUR ---
AMBULATED TO THE HALLWAY AND ASKED FOR SOCKS PROVIDED.
--- NOTE | 2021-02-27 21:23 | NUR ---
PATIENT CALLED AND COMPLAINING OF PAIN TI HIS LEFT SHOULDER I ASKED WHY HE SAID BECAUSE OF THE JW CATHETER WHEN HE MOVED .CHECKED AND INSPECTED THE CATHETER SITE ,NO BLEEDING NO HEMATOMA SITE CDI .GIVEN PRN PAIN MEDICATION
--- NOTE | 2021-02-27 21:23 | NUR ---
GIVEN PO MEDICATIONS TOLERATED WITH WATER PATIENT ABLE TO TAKE MEDICATION BY SELF.
--- NOTE | 2021-02-27 22:45 | NUR ---
YAMILETH GLORIA ASSISTANT PROFESSOR OF ECONOMICS came and informed patient is requesting sleeping medication informed patient is renal patient on hemodialysis and 30 yrs old , with orders for Ambien po.
--- NOTE | 2021-02-27 23:51 | NUR ---
patient called and wants medication for anxiety given Ativan po prn . .
[2021-02-28 00:09] VITALS: BP 129/76
--- NOTE | 2021-02-28 00:19 | NUR ---
PATIENT AMBULATING AROUND THE HALLWAY .STEADY OF GAIT .BRP.
[2021-02-28] MEDS: ZOLPIDEM 5 MG TABLET PO PRN ×2 (01:15→23:20)
--- NOTE | 2021-02-28 01:15 | NUR ---
given sleeping medication per request .
[2021-02-28 04:24] VITALS: BP 122/73
[2021-02-28 06:42] LABS: BASOPHILS % (AUTO) 0.8 % (0.0-2.0); EOSINOPHILS # (AUTO) 0.5 K/uL (0.0-0.7); EOSINOPHILS % (AUTO) 9.9 % (0.0-7.0); HEMATOCRIT 27.1 % (36.7-47.1); LYMPHOCYTES # (AUTO) 0.7 K/uL (20.0-40.0); LYMPHOCYTES % (AUTO) 12.1 % (20.5-51.5); MEAN CORPUSCULAR HEMOGLOBIN 31.5 uug (23.8-33.4); MEAN CORPUSCULAR HGB CONC 33 g/dL (32.5-36.3); MEAN CORPUSCULAR VOLUME 95.5 fL (73.0-96.2); MONOCYTES # (AUTO) 0.5 K/uL (2.0-10.0); MONOCYTES % (AUTO) 9.5 % (0.0-11.0); NEUTROPHILS # (AUTO) 3.6 K/uL (1.8-8.9); NEUTROPHILS % (AUTO) 67.7 % (38.5-71.5); PLATELET COUNT (AUTO) 122 K/uL (152-348); RED BLOOD CELL COUNT(AUTO) 2.84 MIL/uL (4.06-5.63); WHITE BLOOD COUNT (AUTO) 5.4 K/uL (3.6-10.2)
[2021-02-28 07:31] LABS: THYROID STIMULATING HORMONE 3.419 mIU/mL (0.358-3.740)
[2021-02-28 08:02] LABS: MAGNESIUM 2.5 mg/dL (1.8-2.4); PHOSPHOROUS 6.1 mg/dL (2.5-4.9)
[2021-02-28 08:07] LABS: CREATININE 8.6 mg/dL (0.6-1.3)
[2021-02-28] MEDS: ISOSORBIDE MONONITRATE 30 MG TAB.SR.24H PO SCH (08:16)
[2021-02-28] MEDS: NIFEdipine XL 60 MG TABSR PO SCH ×2 (08:16→20:55)
[2021-02-28] MEDS: hydrALAZINE HCL 50 MG TABLET PO SCH ×3 (08:17→17:00)
[2021-02-28] MEDS: LABETALOL HCL 200 MG TABLET PO SCH ×3 (08:17→17:00)
[2021-02-28 08:18] VITALS: BP 125/78
[2021-02-28] MEDS: ACETAMINOPHEN 325 MG TABLET PO PRN (09:10)
[2021-02-28 12:00] VITALS: BP_SYST 117; BP_DIAS 58; BP_DIAS 66
[2021-02-28 15:34] VITALS: BP 96/53
[2021-02-28 20:00] VITALS: BP 127/66
--- NOTE | 2021-02-28 20:15 | NUR ---
Patient in bed AALOx4 polish speaking.Denies pain at this time.No s/s of distress noted .On RA.Perma cath on left upper chest with scanty amt of purulent drainage.Dressing changed. Per RN report from A.m nurse cultures being sent to lab. Iv on right AC 20 patent and intact. Patient seen and examined by LIBRARY MEDIA ASSISTANT Christo with new order ,noted and carried out. Started IV ATB . NO a/r noted. Call light with in reach. Will continue to monitor.
[2021-02-28] MEDS ORDERED: VANCOMYCIN IV 1,250 MG in IV DEXTROSE 5% 250 ML IV ONE (21:30)
[2021-02-28] MEDS ORDERED: VANCOMYCIN 1000 MG VIAL ONE (23:45)
[2021-02-28] MEDS ORDERED: VANCOMYCIN HCL 500 MG VIAL ONE (23:46)
[2021-03-01 04:00] VITALS: BP 108/60
[2021-03-01 06:33] LABS: BASOPHILS % (AUTO) 0.8 % (0.0-2.0); EOSINOPHILS # (AUTO) 0.8 K/uL (0.0-0.7); EOSINOPHILS % (AUTO) 15.2 % (0.0-7.0); HEMATOCRIT 27.9 % (36.7-47.1); HEMOGLOBIN 9.3 g/dL (12.5-16.3); LYMPHOCYTES # (AUTO) 0.7 K/uL (20.0-40.0); LYMPHOCYTES % (AUTO) 13.4 % (20.5-51.5); MEAN CORPUSCULAR HEMOGLOBIN 31.5 uug (23.8-33.4); MEAN CORPUSCULAR HGB CONC 33 g/dL (32.5-36.3); MONOCYTES # (AUTO) 0.6 K/uL (2.0-10.0); MONOCYTES % (AUTO) 10.5 % (0.0-11.0); NEUTROPHILS # (AUTO) 3.2 K/uL (1.8-8.9); NEUTROPHILS % (AUTO) 60.1 % (38.5-71.5); PLATELET COUNT (AUTO) 157 K/uL (152-348); RED BLOOD CELL COUNT(AUTO) 2.94 MIL/uL (4.06-5.63); WHITE BLOOD COUNT (AUTO) 5.3 K/uL (3.6-10.2)
[2021-03-01 06:53] LABS: MAGNESIUM 2.7 mg/dL (1.8-2.4); PHOSPHOROUS 6.4 mg/dL (2.5-4.9); POTASSIUM 4.1 mmol/L (3.5-5.1)
[2021-03-01 06:59] LABS: CREATININE 11.2 mg/dL (0.6-1.3)
--- NOTE | 2021-03-01 07:04 | NUR ---
Received CR result. MD daigle made aware.Awaiting response. Will endorse to oncoming shift.
--- NOTE | 2021-03-01 07:30 | NUR ---
START OF SHIFT: pt resting in bed, c/o left shoulder pain and left leg pain, a/ox4, Lithuanian speaking, left upper arm Morro cath triple lumen, covered with gauze and paper tape, scant amount of yellow drainage, on room air, no signs of distress, no reports of pain at this time, pt has BRP, AMB with steady gait. IV access on the right AC 20g saline lock. Bed low and locked, call light within reach, safety precautions in place, will continue with plan of care.
[2021-03-01 08:00] VITALS: BP 117/73
[2021-03-01] MEDS: NIFEdipine XL 60 MG TABSR PO SCH ×2 (09:09→21:19)
[2021-03-01] MEDS: LABETALOL HCL 200 MG TABLET PO SCH ×3 (09:09→16:54)
[2021-03-01] MEDS: hydrALAZINE HCL 50 MG TABLET PO SCH ×3 (09:11→16:57)
[2021-03-01] MEDS: ISOSORBIDE MONONITRATE 30 MG TAB.SR.24H PO SCH (09:11)
[2021-03-01] MEDS ORDERED: VANCOMYCIN IV 500 MG in IV DEXTROSE 5% 100 ML IV PRN (11:15)
[2021-03-01 16:34] VITALS: BP 113/63
[2021-03-01 20:24] VITALS: BP 122/69
--- NOTE | 2021-03-01 22:51 | NUR ---
Received patient resting in bed, AAOx4, Urdu speaking. No acute distress noted at this time. On RA denies SOB and CP. Left subclavian Omrro cath in place, scant yellow/green drainage, site cleansed and dressing changed. Safety measures in place, bed low and in locked position.
[2021-03-01] MEDS ORDERED: MAG HYDROX/AL HYDROX/SIMETH 30 ML LIQUID UDC PO ONE (23:45)
[2021-03-02] MEDS: ZOLPIDEM 5 MG TABLET PO PRN (00:39)
[2021-03-02 04:24] VITALS: BP 129/77
--- NOTE | 2021-03-02 07:34 | NUR ---
Received patient on bed. on room air. no signs of acute distress. bed locked and in low position. call light within reach. will continue to monitor.
[2021-03-02] MEDS: ISOSORBIDE MONONITRATE 30 MG TAB.SR.24H PO SCH (09:00)
[2021-03-02] MEDS: NIFEdipine XL 60 MG TABSR PO SCH (09:00)
[2021-03-02] MEDS: hydrALAZINE HCL 50 MG TABLET PO SCH ×3 (09:00→16:23)
[2021-03-02] MEDS: LABETALOL HCL 200 MG TABLET PO SCH ×3 (09:00→16:22)
[2021-03-02 11:31] VITALS: BP 120/70
[2021-03-02 15:40] VITALS: BP 134/81
[2021-03-02 16:23] VITALS: BP 134/81
--- NOTE | 2021-03-02 18:50 | NUR ---
Patient left against medical advice. Patient alert and oriented x 4. Dr. Jung spoke with patient and explained the consequences and risks of leaving the hospital. Patient verbalized understanding. Patient signed leaving against medical advise form. ID band removed. IV access removed. Patient ambulated to hospital lobby.
[2021-03-03] MEDS ORDERED: NIFE-34 PO (12:12)
[2021-03-03] MEDS ORDERED: OMEP20CA15 PO (12:12)
[2021-03-04 12:47] LABS: HEPATITIS A AB, IgM Negative
[2021-03-04 12:48] LABS: HEPATITIS A AB, TOTAL POSITIVE; HEPATITIS B SURFACE AG Negative; HEPATITIS Be ANTIGEN Negative
[2021-03-04 12:50] LABS: HEPATITIS B SURFACE AB Reactive
[2021-03-05] MEDS ORDERED: NIFE60TA2 PO (20:01)
[2021-03-05] MEDS ORDERED: LABE200T8 PO (20:01)
[2021-03-05] MEDS ORDERED: RXVAN XX (20:01)
[2021-03-05] MEDS ORDERED: LISI20TA30 PO (20:01)
== END 2021-03-02 18:35 | disposition left against medical advice (07) | DRG 721 ==
LOC: ER 22:21 → CCU 02-26 03:27 → TELE-TD3 02-27 06:00 → TELE3 02-27 08:00 → MEDSURG3 02-28 12:50
PROVIDERS: ADMIT Student in an Organized Health Care Education/Training Program; ATTEND Student in an Organized Health Care Education/Training Program
PROC: 5A1D70Z Performance of Urinary Filtration, Intermittent, Less than 6 Hours Per Day (ICD-10-PCS; principal; 2021-02-26)
DX: T80.211A Bloodstream infection due to central venous catheter, initial encounter (principal); I21.A1 Myocardial infarction type 2; I13.2 Hypertensive heart and chronic kidney disease with heart failure and with stage 5 chronic kidney disease, or end stage renal disease; A41.9 Sepsis, unspecified organism; D69.6 Thrombocytopenia, unspecified; N18.6 End stage renal disease; E87.5 Hyperkalemia; I31.3 Pericardial effusion (noninflammatory); I16.9 Hypertensive crisis, unspecified; I50.9 Heart failure, unspecified; Z99.2 Dependence on renal dialysis; D63.1 Anemia in chronic kidney disease; I16.0 Hypertensive urgency; Z86.16 Personal history of COVID-19; Z91.15 Patient's noncompliance with renal dialysis; Y83.8 Other surgical procedures as the cause of abnormal reaction of the patient, or of later complication, without mention of misadventure at the time of the procedure; Y92.89 Other specified places as the place of occurrence of the external cause; I25.2 Old myocardial infarction; Z86.19 Personal history of other infectious and parasitic diseases; Z91.19 Patient's noncompliance with other medical treatment and regimen; B96.89 Other specified bacterial agents as the cause of diseases classified elsewhere
CPT/HCPCS: 36415; 36600; 70030-TC; 71045; 76770; 76775; 82533; 83605; 83735; 84100; 84443; 85025; 86705; 86706; 86708; 86709; 86803; 86850; 86900; 86901; 87040; 87077; 87340; 87350; 90937; 93005; G0378; J0360; J1170; J1815; J2060; J2405; J3370; J3490; J7040; J7060

== ENCOUNTER 2021-03-03 10:21 | Inpatient (IN) | payer MEDICAID ==
[~2021-03-03] VITALS: Ht 172.7 cm; Wt 68.5 kg
[~2021-03-03 10:21] MED LIST changes: -BENA40TA8 PO; -BUPR-53 PO; -FAMO20TA8 PO; +METO-356 PO; -NIFE-34 PO; -OMEP20CA15 PO; -TRAZ-257 PO; -VANC500P5 HE
[2021-03-03] MEDS ORDERED: IV NORMAL SALINE 500 ML BAG IV ONE (10:45)
[2021-03-03] MEDS ORDERED: LABETALOL HCL 100 MG/20 ML VIAL IV ONE ×2 (10:45→11:30)
[2021-03-03] MEDS ORDERED: LABETALOL HCL 100 MG/20 ML VIAL ONE (10:50)
[2021-03-03 11:04] LABS: BASOPHILS # (AUTO) 0.1 K/uL (0.0-8.0); BASOPHILS % (AUTO) 1.4 % (0.0-2.0); EOSINOPHILS # (AUTO) 0.9 K/uL (0.0-0.7); EOSINOPHILS % (AUTO) 17.3 % (0.0-7.0); HEMATOCRIT 27.6 % (36.7-47.1); HEMOGLOBIN 8.9 g/dL (12.5-16.3); LYMPHOCYTES # (AUTO) 0.8 K/uL (20.0-40.0); LYMPHOCYTES % (AUTO) 14.9 % (20.5-51.5); MEAN CORPUSCULAR HEMOGLOBIN 30.8 uug (23.8-33.4); MEAN CORPUSCULAR HGB CONC 32 g/dL (32.5-36.3); MEAN CORPUSCULAR VOLUME 95.4 fL (73.0-96.2); MONOCYTES # (AUTO) 0.5 K/uL (2.0-10.0); NEUTROPHILS # (AUTO) 2.9 K/uL (1.8-8.9); NEUTROPHILS % (AUTO) 56.4 % (38.5-71.5); PLATELET COUNT (AUTO) 175 K/uL (152-348); RED BLOOD CELL COUNT(AUTO) 2.89 MIL/uL (4.06-5.63); WHITE BLOOD COUNT (AUTO) 5.1 K/uL (3.6-10.2)
[2021-03-03 11:21] LABS: BILIRUBIN,DIRECT 0.2 mg/dL (0.0-0.2); BILIRUBIN,TOTAL 0.6 mg/dL (0.2-1.0); POTASSIUM 4.9 mmol/L (3.5-5.1); TOTAL PROTEIN, SERUM 6.2 g/dL (6.4-8.2)
--- NOTE | 2021-03-03 12:05 | NUR ---
DR. ARNOLD SPOKE WITH DR. NARAYANAN VIA TELEPHONE, PT TO BE ADMITTED TO TELE.
[2021-03-03] MEDS ORDERED: OMEP20CA15 PO (12:12)
[2021-03-03] MEDS ORDERED: NIFE-34 PO (12:12)
--- NOTE | 2021-03-03 12:20 | NUR ---
Pt trans to tele floor, NAD noted.
--- NOTE | 2021-03-03 12:30 | NUR ---
Received patient from ED via wheelchair. AOx4. On room air. no signs of acute distress. With right AC #20 gauge saline lock IV access. Oriented patient to unit. Call light within reach. Bed alarm on. Bed locked and in low position for safety. Will continue to monitor.
[2021-03-03 12:35] VITALS: BP 202/117
[2021-03-03] MEDS ORDERED: ACETAMINOPHEN 325 MG TABLET PO PRN (14:00)
[2021-03-03] MEDS ORDERED: ONDANSETRON 4 MG/2 ML VIAL IV PRN (14:00)
[2021-03-03] MEDS ORDERED: HYDROCODONE/APAP 5-325MG TABLET PO PRN (14:00)
[2021-03-03] MEDS ORDERED: NIFEdipine XL 60 MG TABSR PO SCH (14:30)
[2021-03-03] MEDS ORDERED: LISINOPRIL 20 MG TABLET PO ONE (14:30)
[2021-03-03] MEDS ORDERED: LISINOPRIL 20 MG TABLET PO SCH (14:30)
[2021-03-03 15:17] VITALS: BP 200/117
--- NOTE | 2021-03-03 15:42 | NUR ---
Patient BP 199/123. Patient denies pain/ discomfort. No signs of acute distress. Will inform MD and will continue to monitor.
[2021-03-03] MEDS ORDERED: LABETALOL HCL 100 MG TABLET PO SCH (17:00)
[2021-03-03 18:30] VITALS: BP 178/102
--- NOTE | 2021-03-03 19:30 | NUR ---
received patient , denies distress , on ra , anita catheter on left subclavian suture intact , iv intact
--- NOTE | 2021-03-03 19:38 | NUR ---
Patient awake, AOx4. on room air. patient denies pain/ discomfort. compliant with medications and care. will endorse to incoming shift for continuity of care.
[2021-03-03 20:00] VITALS: BP 127/79
[2021-03-03] MEDS ORDERED: VANCOMYCIN IV 1,000 MG in IV DEXTROSE 5% 250 ML IV ONE (22:00)
[2021-03-03] MEDS: LISINOPRIL 20 MG TABLET PO SCH (22:36)
[2021-03-03] MEDS ORDERED: VANCOMYCIN 1000 MG VIAL ONE (23:13)
[2021-03-04] VITALS: BP 143/79
[2021-03-04 04:21] VITALS: BP 165/92
[2021-03-04] MEDS: PANTOPRAZOLE SODIUM 40 MG TABLET.DR PO SCH (06:00)
--- NOTE | 2021-03-04 06:00 | NUR ---
patient is finally able to sleep , oriented , anita cath and iv's intact , continent, denies distress
[2021-03-04 06:41] LABS: BASOPHILS # (AUTO) 0.1 K/uL (0.0-8.0); BASOPHILS % (AUTO) 1.5 % (0.0-2.0); EOSINOPHILS # (AUTO) 0.9 K/uL (0.0-0.7); EOSINOPHILS % (AUTO) 16.7 % (0.0-7.0); HEMATOCRIT 29.9 % (36.7-47.1); HEMOGLOBIN 9.4 g/dL (12.5-16.3); LYMPHOCYTES # (AUTO) 1.1 K/uL (20.0-40.0); LYMPHOCYTES % (AUTO) 20.8 % (20.5-51.5); MEAN CORPUSCULAR HEMOGLOBIN 29.7 uug (23.8-33.4); MEAN CORPUSCULAR HGB CONC 32 g/dL (32.5-36.3); MEAN CORPUSCULAR VOLUME 94.2 fL (73.0-96.2); MONOCYTES # (AUTO) 0.4 K/uL (2.0-10.0); MONOCYTES % (AUTO) 7.9 % (0.0-11.0); NEUTROPHILS # (AUTO) 2.9 K/uL (1.8-8.9); NEUTROPHILS % (AUTO) 53.1 % (38.5-71.5); PLATELET COUNT (AUTO) 189 K/uL (152-348); RED BLOOD CELL COUNT(AUTO) 3.17 MIL/uL (4.06-5.63); WHITE BLOOD COUNT (AUTO) 5.5 K/uL (3.6-10.2)
[2021-03-04 07:05] LABS: BILIRUBIN,TOTAL 0.9 mg/dL (0.2-1.0); MAGNESIUM 2.8 mg/dL (1.8-2.4); PHOSPHOROUS 6.4 mg/dL (2.5-4.9); POTASSIUM 4.8 mmol/L (3.5-5.1)
[2021-03-04 07:50] LABS: CREATININE 11.3 mg/dL (0.6-1.3)
--- NOTE | 2021-03-04 07:55 | NUR ---
received call from lab for critical lab : creatinine 11.3. Nephro Dr. Scott Whiting in the unit and informed. pt is a dialysis pt and is scheduled to have dialysis today. pt alert & oriented. no complaints at this time. consent for dialysis signed by pt.
[2021-03-04 08:20] VITALS: BP 145/83
[2021-03-04] MEDS: NIFEdipine XL 60 MG TABSR PO SCH ×2 (08:56→20:35)
[2021-03-04] MEDS: ASPIRIN 81 MG TAB.CHEW PO SCH (08:56)
[2021-03-04] MEDS: LABETALOL HCL 200 MG TABLET PO SCH ×2 (08:56→16:34)
[2021-03-04] MEDS: LISINOPRIL 20 MG TABLET PO SCH ×2 (08:56→20:34)
[2021-03-04] MEDS ORDERED: LABETALOL HCL 100 MG TABLET PO SCH (09:00)
--- NOTE | 2021-03-04 09:20 | NUR ---
pt currently undergoing dialysis treatment with erp technical lead at bedside
[2021-03-04] MEDS ORDERED: VANCOMYCIN IV 500 MG in IV DEXTROSE 5% 100 ML IV PRN (10:15)
--- NOTE | 2021-03-04 11:10 | NUR ---
pt completed dialysis with 2L removed.
[2021-03-04] MEDS: hydrALAZINE HCL 25 MG TABLET PO PRN (11:46)
[2021-03-04 11:59] VITALS: BP 188/113
[2021-03-04 16:00] VITALS: BP 131/73
[2021-03-04 20:05] VITALS: BP 140/82
[2021-03-05] VITALS: BP 150/85
[2021-03-05] MEDS: hydrALAZINE HCL 25 MG TABLET PO PRN ×2 (00:13→06:22)
[2021-03-05 04:05] VITALS: BP 150/91
--- NOTE | 2021-03-05 05:55 | NUR ---
Pt slept throughout the night. Denies pain or SOB at this time. C/o nausea one time, given zofran and tolerated well. Given PRN BP meds for HTN, pt tolerated. Safety and comfort provided. No other issues or concerns at this time, will endorse to day shift.
[2021-03-05] MEDS: PANTOPRAZOLE SODIUM 40 MG TABLET.DR PO SCH (06:22)
[2021-03-05 08:06] LABS: HEPATITIS B SURFACE AB Reactive (.); HEPATITIS B SURFACE AG Negative (Negative)
--- NOTE | 2021-03-05 08:30 | NUR ---
PATIENT RECEIVED IN BED AWAKE AND ALERT. PATIENT IV IS PATENT AND HAS NO S/S OF REDNESS OR INFILTRATION. patient complaining of feeling bloated. Attempted BM this morning but was unsucessful. Contacted dr. baltazar and order for miralax 17g PO daily PRN acknowledged and administered.
[2021-03-05] MEDS: ASPIRIN 81 MG TAB.CHEW PO SCH (08:50)
[2021-03-05] MEDS: LABETALOL HCL 200 MG TABLET PO SCH ×2 (09:01→17:40)
[2021-03-05] MEDS: LISINOPRIL 20 MG TABLET PO SCH (09:02)
[2021-03-05] MEDS: NIFEdipine XL 60 MG TABSR PO SCH ×2 (09:02→20:13)
[2021-03-05] MEDS ORDERED: MIRALAX 17 GM POWD.PACK PO PRN (09:45)
[2021-03-05 09:50] LABS: CREATININE 10.1 mg/dL (0.6-1.3); POTASSIUM 5.4 mmol/L (3.5-5.1)
[2021-03-05 11:39] VITALS: BP 137/81
[2021-03-05 15:21] VITALS: BP 154/87
[2021-03-05] MEDS ORDERED: NIFE60TA2 PO (20:01)
[2021-03-05] MEDS ORDERED: RXVAN XX (20:01)
[2021-03-05] MEDS ORDERED: LABE200T8 PO (20:01)
[2021-03-05] MEDS ORDERED: LISI20TA30 PO (20:01)
[2021-03-05 20:05] VITALS: BP 149/92
[2021-03-05 20:13] VITALS: BP 149/92
--- NOTE | 2021-03-05 21:02 | NUR ---
Patient discharged home with patient education and discharge instructions. Vital signs stable and evening blood pressure medication administered per orders. Telemetry box and Right AC and FA IV removed, cannuals intact. Patient belongs accounted for. Transportation home provided by , accompanied patient to front of building.
[2021-03-06] MEDS ORDERED: LISINOPRIL 20 MG TABLET PO SCH (09:00)
== END 2021-03-05 21:20 | disposition home or self-care (01) | DRG 721 ==
LOC: ER 10:21 → TELE3 12:13
PROVIDERS: ADMIT Internal Medicine; ATTEND Internal Medicine
PROC: 5A1D70Z Performance of Urinary Filtration, Intermittent, Less than 6 Hours Per Day (ICD-10-PCS; principal; 2021-03-04)
DX: T80.211A Bloodstream infection due to central venous catheter, initial encounter (principal); A41.01 Sepsis due to Methicillin susceptible Staphylococcus aureus; E43 Unspecified severe protein-calorie malnutrition; I13.2 Hypertensive heart and chronic kidney disease with heart failure and with stage 5 chronic kidney disease, or end stage renal disease; B96.89 Other specified bacterial agents as the cause of diseases classified elsewhere; D53.9 Nutritional anemia, unspecified; I16.0 Hypertensive urgency; I50.9 Heart failure, unspecified; Z99.2 Dependence on renal dialysis; D63.8 Anemia in other chronic diseases classified elsewhere; E78.5 Hyperlipidemia, unspecified; Z86.16 Personal history of COVID-19; Z20.822 Contact with and (suspected) exposure to COVID-19; M25.519 Pain in unspecified shoulder; R93.1 Abnormal findings on diagnostic imaging of heart and coronary circulation; Y84.8 Other medical procedures as the cause of abnormal reaction of the patient, or of later complication, without mention of misadventure at the time of the procedure; Z68.23 Body mass index [BMI] 23.0-23.9, adult; R73.03 Prediabetes; Y92.009 Unspecified place in unspecified non-institutional (private) residence as the place of occurrence of the external cause
CPT/HCPCS: 36415; 70030-TC; 71045; 83605; 83690; 83735; 84100; 85025; 85730; 86706; 87040; 87340; 90937; 93005; 93307; A4663; G0378; J2405; J3370; J3490; J7030; J7040; J7060; U0003

== ENCOUNTER 2021-04-06 09:15 | Inpatient (IN) | payer MEDICAID ==
[~2021-04-06] VITALS: Ht 172.7 cm; Wt 77.6 kg
[~2021-04-06 09:15] MED LIST changes: -AMLO10TA59 PO; -LABE100T5 PO; +LABE200T8 PO; +LISI20TA30 PO; -METO-356 PO; +NIFE60TA2 PO; +OMEP20CA15 PO; -PANT40TA2 PO; +RXVAN XX; -SIMV10TA98 PO
[2021-04-06] MEDS ORDERED: ACETAMINOPHEN 325 MG TABLET PO ONE (09:45)
[2021-04-06] MEDS ORDERED: IV NORMAL SALINE 500 ML BAG IV ONE (09:45)
[2021-04-06] MEDS ORDERED: HYDROMORPHONE 1 MG/1 ML DISP.SYRIN IV ONE (09:45)
[2021-04-06] MEDS ORDERED: ONDANSETRON 4 MG/2 ML VIAL IV ONE (09:45)
[2021-04-06] MEDS ORDERED: HYDROMORPHONE 2 MG/1 ML DISP.SYRIN ONE (09:49)
[2021-04-06] MEDS ORDERED: ACETAMINOPHEN ES 500 MG TABLET ONE (09:49)
[2021-04-06] MEDS ORDERED: ONDANSETRON 4 MG/2 ML VIAL ONE (09:49)
[2021-04-06 10:01] LABS: HEMATOCRIT 29.2 % (36.7-47.1); MEAN CORPUSCULAR HEMOGLOBIN 31.6 uug (23.8-33.4); MEAN CORPUSCULAR VOLUME 96.3 fL (73.0-96.2); PLATELET COUNT (AUTO) 132 K/uL (152-348)
[2021-04-06 10:14] LABS: POTASSIUM 5.9 mmol/L (3.5-5.1)
[2021-04-06 10:15] LABS: CREATININE 10.5 mg/dL (0.6-1.3)
--- NOTE | 2021-04-06 10:20 | NUR ---
Pt remains anxious and refusing to keep is oxygen on (N/C), pt was medicated with Ativan 1mg IV as ordered by .
[2021-04-06] MEDS ORDERED: LORAZEPAM 2 MG/1 ML VIAL ONE (10:24)
[2021-04-06 10:29] LABS: BILIRUBIN,DIRECT 0.7 mg/dL (0.0-0.2); BILIRUBIN,TOTAL 1.7 mg/dL (0.2-1.0); TOTAL PROTEIN, SERUM 6.4 g/dL (6.4-8.2)
[2021-04-06] MEDS ORDERED: LORAZEPAM 2 MG/1 ML VIAL IV ONE (10:30)
[2021-04-06] MEDS ORDERED: PIPERACILLIN SODIUM/TAZOBACTAM 3.375 G in IV DEXTROSE 5% 50 ML IV ONE (10:45)
[2021-04-06] MEDS ORDERED: LABETALOL HCL 100 MG/20 ML VIAL IV ONE (10:45)
[2021-04-06] MEDS ORDERED: PIPERACILLIN/TAZOBACTAM/D5W 50 ML IV ONE (10:57)
[2021-04-06] MEDS ORDERED: LABETALOL HCL 100 MG/20 ML VIAL ONE (10:57)
--- NOTE | 2021-04-06 11:00 | NUR ---
Pt continues to take off his oxygen (N/C), his oxygen saturation is 77% now. Pt placed on O2 15L via 100% NRB mask.
--- NOTE | 2021-04-06 11:10 | NUR ---
Pt is diaphoretic and short of breath, he still keeps taking off his oxygen. spoke with the pt in Luxembourgish and explained the importance of keeping his oxygen on. When the pt has his oxygen on his o2 saturation is 100%. Will monitor closely.
--- NOTE | 2021-04-06 11:25 | NUR ---
Pt refused to keep his NRB mask on, pt placed back on N/C at 4L.
--- NOTE | 2021-04-06 11:55 | NUR ---
Multiple calls have been placed to with no call back. stated she spoke with the answering service and they will attempt to reach him.
[2021-04-06] MEDS ORDERED: VANCOMYCIN IV 1,000 MG in IV DEXTROSE 5% 250 ML IV ONE (12:30)
--- NOTE | 2021-04-06 12:30 | NUR ---
spoke with via telephone and pt has been accepted for tele admission.
--- NOTE | 2021-04-06 12:33 | NUR ---
Pt to be admitted to tele room 316.
[2021-04-06] MEDS ORDERED: VANCOMYCIN IV 200 ML ONE (12:41)
--- NOTE | 2021-04-06 13:00 | NUR ---
SBAR report given to JASON Pereira via telephone.
--- NOTE | 2021-04-06 13:20 | NUR ---
Pt trans to tele room 316, NAD noted upon transfer.
[2021-04-06 13:46] VITALS: BP 167/117
[2021-04-06 16:00] VITALS: BP 162/114
[2021-04-06] MEDS ORDERED: PIPERACILLIN/TAZO 2.25 G in IV DEXTROSE 5% 50 ML IV SCH (18:15)
[2021-04-06] MEDS ORDERED: ACETAMINOPHEN 325 MG TABLET PO PRN (18:15)
[2021-04-06] MEDS ORDERED: SODIUM POLYSTYRENE SULFONATE 15 G/60 ML LIQUID UDC PO ONE (18:15)
--- NOTE | 2021-04-06 18:30 | NUR ---
Pt awake alert and orientedx 4 ambulatory to bathroom. Pt skin intact. Morro cath intact on left upper chest wall. IV on right AC. Call light is within reach.
[2021-04-06] MEDS: HYDROCODONE/APAP 5-325MG TABLET PO PRN (19:59)
[2021-04-06] MEDS: CLONIDINE HCL 0.1 MG TABLET PO PRN (20:00)
[2021-04-06] MEDS: NIFEdipine XL 60 MG TABSR PO SCH (20:00)
[2021-04-06] MEDS: DOCUSATE SODIUM 100 MG CAPSULE PO SCH (20:04)
[2021-04-06 20:22] VITALS: BP 188/141
[2021-04-06] MEDS: ONDANSETRON 4 MG/2 ML VIAL IV PRN (20:45)
[2021-04-06] MEDS ORDERED: DOCUSATE SODIUM 250 MG CAPSULE PO SCH (21:00)
[2021-04-06] MEDS: PIPERACILLIN/TAZO 2.25 G in IV DEXTROSE 5% 50 ML IV SCH (21:18)
[2021-04-06] MEDS: MORPHINE SULFATE 2 MG/1 ML DISP.SYRIN IV PRN (21:18)
[2021-04-06] MEDS: LORAZEPAM 2 MG/1 ML VIAL IV PRN (21:19)
[2021-04-07 00:11] VITALS: BP 128/81
[2021-04-07] MEDS: HYDROCODONE/APAP 5-325MG TABLET PO PRN (01:54)
[2021-04-07 04:50] VITALS: BP 114/71
[2021-04-07] MEDS: PIPERACILLIN/TAZO 2.25 G in IV DEXTROSE 5% 50 ML IV SCH ×2 (05:46→16:02)
[2021-04-07] MEDS: PANTOPRAZOLE SODIUM 40 MG TABLET.DR PO SCH (05:49)
[2021-04-07] MEDS: MORPHINE SULFATE 2 MG/1 ML DISP.SYRIN IV PRN ×2 (05:51→20:31)
[2021-04-07 06:22] LABS: HEMATOCRIT 30.3 % (36.7-47.1); MEAN CORPUSCULAR HEMOGLOBIN 31.6 uug (23.8-33.4); MEAN CORPUSCULAR VOLUME 96.4 fL (73.0-96.2); PLATELET COUNT (AUTO) 101 K/uL (152-348)
[2021-04-07 06:37] LABS: BILIRUBIN,TOTAL 1.5 mg/dL (0.2-1.0); MAGNESIUM 2.4 mg/dL (1.8-2.4); PHOSPHOROUS 5.1 mg/dL (2.5-4.9); POTASSIUM 4.9 mmol/L (3.5-5.1); TOTAL PROTEIN, SERUM 5.9 g/dL (6.4-8.2)
[2021-04-07 07:23] LABS: CREATININE 12.1 mg/dL (0.6-1.3)
[2021-04-07] MEDS ORDERED: VANCOMYCIN IV 500 MG in IV DEXTROSE 5% 100 ML IV PRN (08:00)
--- NOTE | 2021-04-07 08:00 | NUR ---
Pt is in no acute distress. Pt more awake and alert x 4. PT ambulatory to bathroom with good balance. Pt denies any c/o pain. Call light is within reach.
[2021-04-07] MEDS: SEVELAMER CARBONATE 800 MG TABLET PO SCH ×3 (08:44→16:13)
[2021-04-07] MEDS: NIFEdipine XL 60 MG TABSR PO SCH ×2 (08:45→20:37)
[2021-04-07] MEDS: LABETALOL HCL 200 MG TABLET PO SCH ×2 (08:45→16:06)
[2021-04-07] MEDS: LISINOPRIL 20 MG TABLET PO SCH (08:45)
[2021-04-07 11:46] VITALS: BP 149/102
--- NOTE | 2021-04-07 15:00 | NUR ---
HD done no fluid taken out per HD nurse.
[2021-04-07 15:46] VITALS: BP 122/66
[2021-04-07] MEDS ORDERED: VANCOMYCIN IV 500 MG in IV DEXTROSE 5% 100 ML IV ONE (16:00)
--- NOTE | 2021-04-07 19:04 | NUR ---
Pt is in no acute distress. No c/o pain.
[2021-04-07 20:19] VITALS: BP 100/61
[2021-04-07] MEDS: LORAZEPAM 2 MG/1 ML VIAL IV PRN (20:31)
[2021-04-07] MEDS: DOCUSATE SODIUM 100 MG CAPSULE PO SCH (20:37)
[2021-04-07] MEDS ORDERED: CEFTRIAXONE 1 G VIAL ONE (22:28)
[2021-04-07] MEDS: CEFTRIAXONE 1 G in IV DEXTROSE 5% 50 ML IV SCH (22:39)
[2021-04-08 00:21] VITALS: BP 130/76
[2021-04-08] MEDS: MORPHINE SULFATE 2 MG/1 ML DISP.SYRIN IV PRN ×2 (04:02→22:21)
[2021-04-08 04:32] VITALS: BP 141/89
[2021-04-08] MEDS: PANTOPRAZOLE SODIUM 40 MG TABLET.DR PO SCH (06:25)
[2021-04-08 06:33] LABS: HEMATOCRIT 26.3 % (36.7-47.1); MEAN CORPUSCULAR HEMOGLOBIN 31.7 uug (23.8-33.4); MEAN CORPUSCULAR VOLUME 94.7 fL (73.0-96.2); PLATELET COUNT (AUTO) 101 K/uL (152-348)
[2021-04-08 06:46] LABS: BILIRUBIN,TOTAL 1.2 mg/dL (0.2-1.0); MAGNESIUM 2.3 mg/dL (1.8-2.4); POTASSIUM 4.1 mmol/L (3.5-5.1); TOTAL PROTEIN, SERUM 5.9 g/dL (6.4-8.2)
[2021-04-08 06:49] LABS: CREATININE 9.4 mg/dL (0.6-1.3)
[2021-04-08 07:59] VITALS: BP 133/89
[2021-04-08] MEDS: LABETALOL HCL 200 MG TABLET PO SCH ×2 (08:58→16:44)
[2021-04-08] MEDS: SEVELAMER CARBONATE 800 MG TABLET PO SCH ×3 (08:58→17:05)
[2021-04-08] MEDS: LISINOPRIL 20 MG TABLET PO SCH (08:58)
[2021-04-08] MEDS: NIFEdipine XL 60 MG TABSR PO SCH ×2 (08:58→20:57)
--- NOTE | 2021-04-08 10:45 | NUR ---
Pt AAOx3, forgetful. Afebrile. On 3L o2, spo2 >92%. Denies SOB. No s/s of distress. All needs attended to. VSS. Report given to JASON Galarza for continuity of care.
[2021-04-08 13:00] VITALS: BP 97/61
[2021-04-08 16:00] VITALS: BP 113/63
--- NOTE | 2021-04-08 16:09 | NUR ---
NO ACUTE CHANGE FROM AM ASSESSMENT. CONTINUE TELE OBSERVATION ORDERED
[2021-04-08] MEDS: SIMETHICONE 80 MG TAB.CHEW PO PRN ×2 (16:52→22:21)
[2021-04-08 20:44] VITALS: BP 112/64
[2021-04-08] MEDS: DOCUSATE SODIUM 100 MG CAPSULE PO SCH (20:56)
[2021-04-08] MEDS: CEFTRIAXONE 1 G in IV DEXTROSE 5% 50 ML IV SCH (21:01)
[2021-04-09 00:25] VITALS: BP 107/64
[2021-04-09 04:50] VITALS: BP 143/91
--- NOTE | 2021-04-09 05:21 | NUR ---
Pt rested in between care; no acute distress; c/o abdominal pain x2 and both medicated with morphine; needs attended; continue plan of care.
[2021-04-09 06:27] LABS: HEMATOCRIT 27.5 % (36.7-47.1); MEAN CORPUSCULAR HEMOGLOBIN 31.1 uug (23.8-33.4); MEAN CORPUSCULAR VOLUME 94.8 fL (73.0-96.2); PLATELET COUNT (AUTO) 97 K/uL (152-348)
[2021-04-09] MEDS: PANTOPRAZOLE SODIUM 40 MG TABLET.DR PO SCH (06:32)
[2021-04-09 06:57] LABS: MAGNESIUM 2.5 mg/dL (1.8-2.4); POTASSIUM 4.3 mmol/L (3.5-5.1); VANCOMYCIN,RANDOM 17.3 ug/mL (18.0-26.0)
--- NOTE | 2021-04-09 07:30 | NUR ---
Patient resting in bed. No s/s of discomfort or distress. Oxygen via nasal cannula at 3 LPM. NSR on the environmental monitoring specialist. Oliguric. IV to right hand with dressing c/d/i. Morro catheter to left upper arm with dressing c/d/i. Plan for today is dialysis. SW evaluation in process. Needs met at this time. Will continue current POC.
[2021-04-09] MEDS: NIFEdipine XL 60 MG TABSR PO SCH ×2 (09:21→20:43)
[2021-04-09] MEDS: LABETALOL HCL 200 MG TABLET PO SCH ×2 (09:21→17:49)
[2021-04-09] MEDS: SEVELAMER CARBONATE 800 MG TABLET PO SCH ×3 (09:22→17:49)
[2021-04-09 12:00] VITALS: BP 121/73
[2021-04-09] MEDS ORDERED: EPOETIN ALFA 10,000 UNITS/ML VIAL SQ ONE (14:32)
[2021-04-09 16:00] VITALS: BP 113/65
--- NOTE | 2021-04-09 18:51 | NUR ---
Patient resting in bed. No s/s of discomfort or distress. Oxygen via nasal cannula at 3 LPM. NSR on the quality assurance monitor. Oliguric. IV to right hand with dressing c/d/i. Morro catheter to left upper arm with dressing c/d/i. Had dialysis today, with 1200 ml out. Needs met at this time. Will endorse to night nurse.
--- NOTE | 2021-04-09 19:50 | NUR ---
Patient alert oriented, no sob no chest pain, tele monitor sinus rhythm sinus tachy. Patient has no complain of pain at this time, call light within reach.
[2021-04-09 20:35] VITALS: BP 133/75
[2021-04-09] MEDS: DOCUSATE SODIUM 100 MG CAPSULE PO SCH (20:42)
[2021-04-09] MEDS: CEFTRIAXONE 1 G in IV DEXTROSE 5% 50 ML IV SCH (21:08)
[2021-04-09] MEDS: TEMAZEPAM 7.5 MG CAPSULE PO PRN (23:51)
[2021-04-10 00:25] VITALS: BP 135/79
[2021-04-10] MEDS: MORPHINE SULFATE 2 MG/1 ML DISP.SYRIN IV PRN (02:35)
[2021-04-10 04:30] VITALS: BP 111/67
[2021-04-10] MEDS: PANTOPRAZOLE SODIUM 40 MG TABLET.DR PO SCH (06:03)
--- NOTE | 2021-04-10 06:10 | NUR ---
Patient alert oriented, no sob no chest pain, no complain of pain, cont to monitor, v/s stable.
[2021-04-10 07:02] LABS: HEMATOCRIT 27.1 % (36.7-47.1); MEAN CORPUSCULAR HEMOGLOBIN 30.9 uug (23.8-33.4); MEAN CORPUSCULAR VOLUME 93.9 fL (73.0-96.2); PLATELET COUNT (AUTO) 112 K/uL (152-348)
[2021-04-10 07:24] LABS: BILIRUBIN,TOTAL 0.8 mg/dL (0.2-1.0); MAGNESIUM 2.5 mg/dL (1.8-2.4); PHOSPHOROUS 2.7 mg/dL (2.5-4.9); POTASSIUM 3.8 mmol/L (3.5-5.1)
[2021-04-10 07:34] LABS: CREATININE 9.6 mg/dL (0.6-1.3)
[2021-04-10] MEDS: SEVELAMER CARBONATE 800 MG TABLET PO SCH ×3 (09:11→17:10)
[2021-04-10] MEDS: LABETALOL HCL 200 MG TABLET PO SCH ×2 (09:11→17:11)
[2021-04-10] MEDS: NIFEdipine XL 60 MG TABSR PO SCH ×2 (09:12→20:23)
[2021-04-10 11:53] VITALS: BP 143/87
[2021-04-10] MEDS: HYDROCODONE/APAP 5-325MG TABLET PO PRN (12:37)
[2021-04-10 16:11] VITALS: BP 111/70
--- NOTE | 2021-04-10 19:45 | NUR ---
Received pt sitting on a chair, verbally responsive and able to make needs known. Denies any pain or discomfort. No s/s of respiratory distress. NSR on tele at 77/min. Safety measures initiated, call light within reach, will continue to monitor.
[2021-04-10] MEDS: DOCUSATE SODIUM 100 MG CAPSULE PO SCH (20:23)
[2021-04-10 20:30] VITALS: BP 152/82
[2021-04-10] MEDS: TEMAZEPAM 7.5 MG CAPSULE PO PRN (23:18)
[2021-04-11 00:20] VITALS: BP 124/67
[2021-04-11 04:30] VITALS: BP 132/79
[2021-04-11] MEDS: PANTOPRAZOLE SODIUM 40 MG TABLET.DR PO SCH (06:09)
--- NOTE | 2021-04-11 06:17 | NUR ---
No signs of acute distress, NSR on tele at 83/min. Due medications administered and tolerated well. No significant change in condition through the night. All needs attended to and met. HD cath intact and patent, for Hemodialysis today.
[2021-04-11 06:25] LABS: HEMATOCRIT 29.2 % (36.7-47.1); MEAN CORPUSCULAR HEMOGLOBIN 30.9 uug (23.8-33.4); PLATELET COUNT (AUTO) 169 K/uL (152-348)
[2021-04-11 07:17] LABS: BILIRUBIN,TOTAL 0.8 mg/dL (0.2-1.0); MAGNESIUM 2.6 mg/dL (1.8-2.4); PHOSPHOROUS 3.6 mg/dL (2.5-4.9); TOTAL PROTEIN, SERUM 6.1 g/dL (6.4-8.2)
--- NOTE | 2021-04-11 07:30 | NUR ---
PATIENT IN BED AWAKE AND ORIENTED X3, NO SS OF PAIN OR DISTRESS. STARTED ON HEMODIALYSIS AT BEDSIDE
[2021-04-11] MEDS: SEVELAMER CARBONATE 800 MG TABLET PO SCH ×3 (08:10→16:34)
[2021-04-11] MEDS: LABETALOL HCL 200 MG TABLET PO SCH ×2 (08:11→16:34)
[2021-04-11] MEDS: NIFEdipine XL 60 MG TABSR PO SCH ×2 (08:11→21:35)
--- NOTE | 2021-04-11 09:31 | NUR ---
PATIENT TOLERATED HD WELL REMOVED 2L OF FLUID
[2021-04-11 11:44] VITALS: BP 117/79
--- NOTE | 2021-04-11 12:00 | NUR ---
TOLERATED DIALYSIS FAIRLY WELL REMOVED 2L OF FLUID
[2021-04-11] MEDS ORDERED: VANCOMYCIN IV 1,000 MG in IV DEXTROSE 5% 250 ML IV ONE (13:00)
[2021-04-11 15:44] VITALS: BP 131/75
--- NOTE | 2021-04-11 16:43 | NUR ---
PATIENT FEELING MUCH BETTER POST HD. UP ON CHAIR MOST OF THE AFTERNOON WITH FAMILY AROUND. VERBALIZES DESIRE TO GO HOME, NURSING ADVISE GIVEN. CONTINUE WITH IV ANTIBIOTIC ORDERED NO ADVRSE REACTION NOTED
--- NOTE | 2021-04-11 19:10 | NUR ---
Report received from Stephanie RN. Patient dozing quietly in bed, no distress noted, no complaints voiced. Review plan of care - BMP labs ordered for morning. Encouraged to call for concerns. Receptive, continue plan of care.
[2021-04-11 20:00] VITALS: BP 136/65
[2021-04-11] MEDS: DOCUSATE SODIUM 100 MG CAPSULE PO SCH (21:35)
[2021-04-11] MEDS: TEMAZEPAM 7.5 MG CAPSULE PO PRN (22:24)
[2021-04-11] MEDS: LORAZEPAM 2 MG/1 ML VIAL IV PRN (22:32)
[2021-04-12] MEDS: ONDANSETRON 4 MG/2 ML VIAL IV PRN ×2 (01:52→23:41)
[2021-04-12] MEDS: MORPHINE SULFATE 2 MG/1 ML DISP.SYRIN IV PRN (01:55)
[2021-04-12 04:00] VITALS: BP 147/68
[2021-04-12] MEDS: LORAZEPAM 2 MG/1 ML VIAL IV PRN ×2 (04:26→22:07)
[2021-04-12] MEDS: CLONIDINE HCL 0.1 MG TABLET PO PRN (04:43)
[2021-04-12 06:04] LABS: POTASSIUM 4.7 mmol/L (3.5-5.1)
[2021-04-12 06:33] LABS: CREATININE 9.2 mg/dL (0.6-1.3)
[2021-04-12] MEDS: PANTOPRAZOLE SODIUM 40 MG TABLET.DR PO SCH (07:00)
[2021-04-12] MEDS: SEVELAMER CARBONATE 800 MG TABLET PO SCH ×3 (08:14→17:43)
[2021-04-12] MEDS: NIFEdipine XL 60 MG TABSR PO SCH ×2 (09:40→20:26)
[2021-04-12] MEDS: LABETALOL HCL 200 MG TABLET PO SCH ×2 (09:41→17:00)
[2021-04-12 11:52] VITALS: BP 114/64
[2021-04-12 15:54] VITALS: BP 95/52
--- NOTE | 2021-04-12 18:31 | NUR ---
Patient awake in bed. AOx3-4. On 3L O2 via NC. No signs of acute distress. Frequent patient rounding for safety. Needs met. Comfort measures provided. Patient compliant with medications and care. Will endorse to incoming shift for continuity of care.
[2021-04-12 20:12] VITALS: BP 118/67
[2021-04-12] MEDS: DOCUSATE SODIUM 100 MG CAPSULE PO SCH (20:25)
[2021-04-12] MEDS: SIMETHICONE 80 MG TAB.CHEW PO PRN (23:45)
[2021-04-13 04:18] VITALS: BP 141/76
--- NOTE | 2021-04-13 06:04 | NUR ---
Slept throughout the night. Denies pain or SOB. C/o some nausea throughout the night, given Zofran and tolerated medication well. Safety and comfort provided No other issues or concerns at this time, will endorse to day shift.
[2021-04-13 06:42] LABS: HEMATOCRIT 32.9 % (36.7-47.1); MEAN CORPUSCULAR HEMOGLOBIN 30.2 uug (23.8-33.4); MEAN CORPUSCULAR VOLUME 93.2 fL (73.0-96.2); PLATELET COUNT (AUTO) 272 K/uL (152-348)
[2021-04-13] MEDS: PANTOPRAZOLE SODIUM 40 MG TABLET.DR PO SCH (06:49)
[2021-04-13 07:00] LABS: MAGNESIUM 2.7 mg/dL (1.8-2.4); PHOSPHOROUS 4.1 mg/dL (2.5-4.9); POTASSIUM 4.5 mmol/L (3.5-5.1)
--- NOTE | 2021-04-13 07:10 | NUR ---
Critical lab creatinine of 10.[address] Whiting with orders to HD pt. Will endorse to day shift
[2021-04-13 07:11] LABS: CREATININE 10.9 mg/dL (0.6-1.3)
[2021-04-13] MEDS: SEVELAMER CARBONATE 800 MG TABLET PO SCH ×3 (08:48→18:09)
[2021-04-13] MEDS: LABETALOL HCL 200 MG TABLET PO SCH ×2 (09:47→16:33)
[2021-04-13] MEDS: NIFEdipine XL 60 MG TABSR PO SCH ×2 (09:47→20:27)
[2021-04-13 11:53] VITALS: BP 154/93
[2021-04-13 15:57] VITALS: BP 142/87
[2021-04-13] MEDS: CLONIDINE HCL 0.1 MG TABLET PO PRN (19:34)
--- NOTE | 2021-04-13 19:40 | NUR ---
Pt BP is 166/105, gave clonidine 0.1mg
--- NOTE | 2021-04-13 19:52 | NUR ---
Patient awake, alert and oriented x 3. No signs of acute distress. Patient had dialysis, 2500ml removed. Patient tolerated well. Patient compliant with medications and care. Will endorse to incoming shift for continuity of care.
[2021-04-13 20:00] VITALS: BP 166/105
[2021-04-13] MEDS: DOCUSATE SODIUM 100 MG CAPSULE PO SCH (20:25)
[2021-04-13] MEDS: LORAZEPAM 2 MG/1 ML VIAL IV PRN (20:34)
--- NOTE | 2021-04-13 20:45 | NUR ---
Rechecked BP, 186/111. Gave scheduled Nifedipine 60mg
[2021-04-13 21:24] VITALS: BP 199/122
[2021-04-13] MEDS ORDERED: CLONIDINE HCL 0.2 MG TABLET PO ONE (21:30)
--- NOTE | 2021-04-13 21:35 | NUR ---
Rechecked BP, 199/122. Notified Dr. Martinez with orders for Clonidine 0.2mg X1.
[2021-04-13 23:18] VITALS: BP 204/129
[2021-04-14] VITALS: BP 162/94
[2021-04-14] MEDS: SIMETHICONE 80 MG TAB.CHEW PO PRN (00:22)
--- NOTE | 2021-04-14 00:30 | NUR ---
BP went down to 162/94, patient denies HANNAH or SOB. Pt does c/o of abdominal discomfort. Upon evaluation, patient's abdomen is distended and is hard. Bladder scan done showing 235ml. Dr. Jung notified with orders for straight cath and KUB.
--- NOTE | 2021-04-14 01:00 | NUR ---
Pt refused straight cath
[2021-04-14] MEDS: LORAZEPAM 2 MG/1 ML VIAL IV PRN ×2 (03:13→18:10)
[2021-04-14 04:00] VITALS: BP 118/65
--- NOTE | 2021-04-14 04:51 | NUR ---
Pt kept removing HD cath dressing. Educated patient that he needs to leave dressing intact in order to prevent contamination and possible infection. Area disinfected with chlorhexidine and new dressing applied.
[2021-04-14 06:05] LABS: MEAN CORPUSCULAR HEMOGLOBIN 28.9 uug (23.8-33.4); MEAN CORPUSCULAR VOLUME 93.5 fL (73.0-96.2); PLATELET COUNT (AUTO) 227 K/uL (152-348)
[2021-04-14] MEDS: PANTOPRAZOLE SODIUM 40 MG TABLET.DR PO SCH (06:06)
[2021-04-14 06:56] LABS: BILIRUBIN,TOTAL 0.8 mg/dL (0.2-1.0); MAGNESIUM 2.7 mg/dL (1.8-2.4); PHOSPHOROUS 3.2 mg/dL (2.5-4.9); POTASSIUM 4.9 mmol/L (3.5-5.1); TOTAL PROTEIN, SERUM 6.2 g/dL (6.4-8.2)
[2021-04-14 06:58] LABS: CREATININE 8.8 mg/dL (0.6-1.3)
--- NOTE | 2021-04-14 08:13 | NUR ---
RECEIVED PATIENT IN BED AWAKE ALERT DENIES DISCOMFORTS AT THIS TIME ON O2 AT 2L/M BY NASAL CANULA WITH NO SOB JW CATH IS INTACT AT THIS TIME CALL LIGHTS AND PERSONAL BELONGINGS ARE WITHIN EASY REACH MADE COMFORTABLE WILL CONTINUE TO OBSERVE.
[2021-04-14] MEDS: SEVELAMER CARBONATE 800 MG TABLET PO SCH ×3 (08:37→17:20)
[2021-04-14] MEDS: LABETALOL HCL 200 MG TABLET PO SCH ×2 (08:38→17:20)
[2021-04-14] MEDS: NIFEdipine XL 60 MG TABSR PO SCH ×2 (08:38→20:48)
--- NOTE | 2021-04-14 11:33 | NUR ---
PATIENT SEEN AND EXAMINED BY MARY BANGURA WITH NEW ORDERS AND NOTED.
--- NOTE | 2021-04-14 11:34 | NUR ---
PATIENT IS REQUESTING TO BE DISCHARGED HOME TODAY EXPLAINED TO HIM OF HIS ELEVATED BLOOD PRESSURE AND THE FACT THAT HE NEEDS A GOOD DIALYSIS ACCESS PRIOR TO DISCHARGE AND MARY WAS PRESENT AND AWARE AND TOLD PATIENT THAT ITS NOT SAFE YET TO DISCHARGE HIM
[2021-04-14] MEDS: CEFEPIME HCL 1 G in IV DEXTROSE 5% 50 ML IV SCH (11:42)
[2021-04-14 12:00] VITALS: BP 199/121
[2021-04-14] MEDS ORDERED: CLONIDINE HCL 0.2 MG TABLET PO PRN (12:00)
[2021-04-14 16:00] VITALS: BP 149/90
--- NOTE | 2021-04-14 17:00 | NUR ---
PATIENT IS STILL WANTING TO GO HOME TODAY CONTINUE TO EDUCATE HIM OF HIS BLOOD PRESSURE BEING UNSAFE AT THIS TIME HE WAS JUST PLACED ON A NEW MEDICATION IN ATTEMPT TO LOWER HIS BLOOD PRESSURE AT A SAFER LEVEL AND HE WILL NEED HIS DIALYSIS CATHETER ISSUES SITUATED AND RESOLVED BEFORE HE CAN BE SAFELY DISCHARGED PATIENT EXPRESSED UNDERSTANDING BUT CONTINUES TO EXPRESS DESIRE TO GO HOME.WILL CONTINUE TO OBSERVE.
[2021-04-14] MEDS: hydrALAZINE HCL 50 MG TABLET PO SCH (17:21)
--- NOTE | 2021-04-14 18:12 | NUR ---
REMAIN ANXIOUS AND AGREED TO TAKE ATIVAN TO CALM HIM DOWN MEDICATED ORDERED AND WILL OBSERVE.
[2021-04-14] MEDS ORDERED: CLONIDINE HCL 0.1 MG TABLET PO PRN (18:15)
[2021-04-14 20:37] VITALS: BP 141/77
[2021-04-14] MEDS: DOCUSATE SODIUM 100 MG CAPSULE PO SCH (20:48)
[2021-04-14] MEDS: TEMAZEPAM 7.5 MG CAPSULE PO PRN (20:54)
[2021-04-15] MEDS: LORAZEPAM 2 MG/1 ML VIAL IV PRN (00:10)
--- NOTE | 2021-04-15 00:30 | NUR ---
Patient refused straight catheter. Attempted to educated patient as to dangers of urinary stasis - unsuccessful.
[2021-04-15] MEDS: MORPHINE SULFATE 2 MG/1 ML DISP.SYRIN IV PRN (01:25)
[2021-04-15 04:35] VITALS: BP 156/98
[2021-04-15 06:41] LABS: HEMATOCRIT 31.8 % (36.7-47.1); MEAN CORPUSCULAR HEMOGLOBIN 29.9 uug (23.8-33.4); MEAN CORPUSCULAR VOLUME 93.3 fL (73.0-96.2); PLATELET COUNT (AUTO) 295 K/uL (152-348)
[2021-04-15 06:58] LABS: MAGNESIUM 2.7 mg/dL (1.8-2.4); PHOSPHOROUS 4.1 mg/dL (2.5-4.9); POTASSIUM 5.1 mmol/L (3.5-5.1)
[2021-04-15 07:03] LABS: CREATININE 10.5 mg/dL (0.6-1.3)
[2021-04-15] MEDS: SEVELAMER CARBONATE 800 MG TABLET PO SCH ×2 (07:17→13:13)
[2021-04-15] MEDS: PANTOPRAZOLE SODIUM 40 MG TABLET.DR PO SCH (07:17)
[2021-04-15] MEDS ORDERED: NEPRO (VANILLA) 237 ML CAN PO SCH (09:00)
[2021-04-15] MEDS: hydrALAZINE HCL 50 MG TABLET PO SCH ×2 (09:00→13:13)
[2021-04-15] MEDS: LABETALOL HCL 200 MG TABLET PO SCH (09:05)
[2021-04-15] MEDS: NIFEdipine XL 60 MG TABSR PO SCH (09:05)
--- NOTE | 2021-04-15 10:50 | NUR ---
Dialysis in progress
--- NOTE | 2021-04-15 11:11 | NUR ---
Cefepime & Vanco to be held till post HD - per pharmacy
[2021-04-15 11:30] VITALS: BP 140/81
--- NOTE | 2021-04-15 12:47 | NUR ---
Hemodialysis completed at this time - 3L taken out - tolerated well - post HD BP 147/78
[2021-04-15] MEDS ORDERED: HYDR50TA68 PO (12:49)
[2021-04-15] MEDS ORDERED: SEVE800T7 PO (12:49)
[2021-04-15] MEDS: CEFEPIME HCL 1 G in IV DEXTROSE 5% 50 ML IV SCH (13:00)
--- NOTE | 2021-04-15 13:17 | NUR ---
Hydralazine held pre & post HD to prevent hypotension
[2021-04-15] MEDS ORDERED: VANCOMYCIN IV 500 MG in IV DEXTROSE 5% 100 ML IV ONE (15:00)
[2021-04-15 16:00] VITALS: BP 136/83
--- NOTE | 2021-04-15 17:11 | NUR ---
Patient discharged to private car in stable condition. VSS. Steady gait. No distress. IV lines removed - hospital wristband removed. All belongings w/ patient. Educated as to importance of adherence to medication regimen as well as the importance of follow up apts with PCP and specialists. Urged to go to ER for any worsening or new conditions requiring treatment. Senior Strategy Manager used to ensure understanding.
== END 2021-04-15 17:20 | disposition home or self-care (01) | DRG 721 ==
LOC: ER 09:16 → TELE3 13:18 → MEDSURG3 04-11 08:58
PROVIDERS: ADMIT Internal Medicine; ATTEND Registered Nurse
PROC: 5A1D70Z Performance of Urinary Filtration, Intermittent, Less than 6 Hours Per Day (ICD-10-PCS; principal; 2021-04-07)
DX: T80.211A Bloodstream infection due to central venous catheter, initial encounter (principal); A41.01 Sepsis due to Methicillin susceptible Staphylococcus aureus; J96.01 Acute respiratory failure with hypoxia; I21.A1 Myocardial infarction type 2; J15.9 Unspecified bacterial pneumonia; E44.0 Moderate protein-calorie malnutrition; J90 Pleural effusion, not elsewhere classified; I13.2 Hypertensive heart and chronic kidney disease with heart failure and with stage 5 chronic kidney disease, or end stage renal disease; I50.33 Acute on chronic diastolic (congestive) heart failure; D69.6 Thrombocytopenia, unspecified; E11.22 Type 2 diabetes mellitus with diabetic chronic kidney disease; E83.39 Other disorders of phosphorus metabolism; N18.6 End stage renal disease; E87.1 Hypo-osmolality and hyponatremia; I16.9 Hypertensive crisis, unspecified; Z99.2 Dependence on renal dialysis; Z20.822 Contact with and (suspected) exposure to COVID-19; E78.5 Hyperlipidemia, unspecified; E87.5 Hyperkalemia; I16.0 Hypertensive urgency; I27.20 Pulmonary hypertension, unspecified; D63.8 Anemia in other chronic diseases classified elsewhere; J98.11 Atelectasis; I31.3 Pericardial effusion (noninflammatory); Z68.26 Body mass index [BMI] 26.0-26.9, adult; Z91.19 Patient's noncompliance with other medical treatment and regimen; Y84.8 Other medical procedures as the cause of abnormal reaction of the patient, or of later complication, without mention of misadventure at the time of the procedure; Y92.009 Unspecified place in unspecified non-institutional (private) residence as the place of occurrence of the external cause; Z86.19 Personal history of other infectious and parasitic diseases; Z91.15 Patient's noncompliance with renal dialysis
CPT/HCPCS: 36415; 70030-TC; 71045; 74018; 83605; 83690; 83735; 84100; 85025; 85610; 85730; 87040; 87077; 90937; 93005; 93307; A4663; A9150; C1758; G0378; J0692; J0696; J0885; J1170; J2060; J2270; J2405; J2543; J3370; J3490; J7040; J7060

== ENCOUNTER 2021-05-31 00:41 | Inpatient (IN) | payer MEDICAID ==
[~2021-05-31] VITALS: Ht 165.1 cm; Wt 67.6 kg
[~2021-05-31 00:41] MED LIST changes: +HYDR50TA68 PO; -LISI20TA30 PO; -RXVAN XX
--- NOTE | 2021-05-31 01:15 | NUR ---
Patient was 85% sating room air. I immediately placed a nasal cannula 5 LPM on the patient, it increased to 95%.
--- NOTE | 2021-05-31 01:15 | NUR ---
Patient c/o or right leg pain x [address]:05/26 and fever for one day, temp 103.5 upon arrival. Patient states he has dialysis TTS. Patient states Hx of ESRD. Patient is only mauritanian speaking and very limited in his ability to explain information. A/O x3, clear speech, complete sentences.
--- NOTE | 2021-05-31 01:18 | NUR ---
Dr. Tafoya at bedside, MSE in progress.
[2021-05-31] MEDS ORDERED: CEFTRIAXONE 1 G in IV DEXTROSE 5% 50 ML IV ONE (01:45)
[2021-05-31] MEDS ORDERED: AZITHROMYCIN 250 MG TABLET PO ONE (01:45)
[2021-05-31] MEDS ORDERED: IV NS 1000 ML 1,000 ML IV ONE (01:45)
[2021-05-31 02:07] LABS: ABG BASE EXCESS 3.5 mmol/L; ABG HCO3 26.2 mmol/L; ABG PCO2 33.4 mmHg (35.0-45.0); ABG PH 7.512 (7.350-7.450); ABG PO2 77.3 mmHg (75.0-100.0); ABG SITE LEFT RADIAL; ABG TOTAL HEMOGLOBIN 12.1 G/dL (13.5-18.0); COHb 2.1 % (0.5-1.5); MetHb 0.4 % (0.0-1.5); O2Hb 93.6 % (94.0-97.0); VENT MODE Nasal Cannula
[2021-05-31] MEDS ORDERED: AZITHROMYCIN 250 MG TABLET ONE (02:07)
[2021-05-31] MEDS ORDERED: CEFTRIAXONE /D5W 50ML IVPB **ER PYXIS IV ONE (02:07)
[2021-05-31 02:11] LABS: HEMATOCRIT 36.3 % (36.7-47.1); MEAN CORPUSCULAR HEMOGLOBIN 30.7 uug (23.8-33.4); MEAN CORPUSCULAR VOLUME 93.2 fL (73.0-96.2); PLATELET COUNT (AUTO) 119 K/uL (152-348)
[2021-05-31 02:17] LABS: CARBON DIOXIDE 23 mmol/L (21-32); CHLORIDE 93 mmol/L (98-107); GLUCOSE 102 mg/dL (74-106); POTASSIUM 5.6 mmol/L (3.5-5.1); UREA NITROGEN, BLOOD 51 mg/dL (7-18)
--- NOTE | 2021-05-31 02:20 | NUR ---
ULTRASOUND (KURTIS) AT BEDSIDE.
[2021-05-31 02:24] LABS: CREATININE 10.4 mg/dL (0.6-1.3)
[2021-05-31 02:36] LABS: ALANINE AMINOTRANSFERASE 38 U/L (16-63); ALKALINE PHOSPHATASE 136 U/L (50-136); ASPARTATE AMINOTRANSFERASE 37 U/L (15-37); BILIRUBIN,TOTAL 2.7 mg/dL (0.2-1.0); FERRITIN 665 ng/mL (26-388); LACTATE DEHYDROGENASE 361 U/L (85-227); TOTAL PROTEIN, SERUM 8.2 g/dL (6.4-8.2)
[2021-05-31 02:43] LABS: CREATINE KINASE, TOTAL 144 U/L (39-308)
--- NOTE | 2021-05-31 03:20 | NUR ---
Patient is resting comfortably in bed with eyes closed. VSS.
[2021-05-31] MEDS ORDERED: SODIUM POLYSTYRENE SULFONATE 15 G/60 ML LIQUID UDC PO ONE (04:45)
[2021-05-31] MEDS ORDERED: PIPERACILLIN SODIUM/TAZOBACTAM 3.375 G in IV DEXTROSE 5% 50 ML IV ONE (05:00)
[2021-05-31] MEDS ORDERED: IV NORMAL SALINE 500 ML IV ONE (05:00)
[2021-05-31] MEDS ORDERED: VANCOMYCIN 1G/D5W 200 ML PIGGYBACK IV ONE (05:00)
[2021-05-31] MEDS ORDERED: SODIUM POLYSTYRENE SULFONATE 15 G/60 ML LIQUID UDC ONE (05:01)
[2021-05-31] MEDS ORDERED: VANCOMYCIN IV 200 ML ONE (05:05)
[2021-05-31] MEDS ORDERED: PIPERACILLIN/TAZOBACTAM/D5W 50 ML IV ONE (05:05)
--- NOTE | 2021-05-31 05:08 | NUR ---
ASSISTED PT TO USE URINAL.
--- NOTE | 2021-05-31 05:17 | NUR ---
Call made to MD Jeffrey Lindsay paged.
[2021-05-31] MEDS ORDERED: ACETAMINOPHEN 325 MG TABLET PO PRN (07:00)
[2021-05-31] MEDS ORDERED: PIPERACILLIN/TAZO 2.25 G in IV DEXTROSE 5% 50 ML IV SCH (07:00)
[2021-05-31] MEDS ORDERED: MORPHINE SULFATE 2 MG/1 ML DISP.SYRIN IV PRN (07:00)
[2021-05-31] MEDS ORDERED: ONDANSETRON 4 MG/2 ML VIAL IV PRN (07:00)
[2021-05-31] MEDS ORDERED: TEMAZEPAM 15 MG CAPSULE PO PRN (07:00)
--- NOTE | 2021-05-31 07:02 | NUR ---
ASSISTED PT TO RESTROOM, PT RETURNED TO BED AND RESTING COMFORTABLY, DENIES ANY PAIN/DISCOMFORT AT THIS TIME.
[2021-05-31] MEDS: SEVELAMER CARBONATE 800 MG TABLET PO SCH ×3 (08:00→18:04)
[2021-05-31] MEDS ORDERED: ONDANSETRON 4 MG/2 ML VIAL ONE (08:14)
[2021-05-31] MEDS ORDERED: ACETAMINOPHEN 325 MG TABLET ONE (08:14)
[2021-05-31] MEDS ORDERED: NIFEdipine XL 30 MG TABSR PO ONE (08:25)
[2021-05-31] MEDS ORDERED: LABETALOL HCL 100 MG TABLET ONE (08:25)
[2021-05-31] MEDS ORDERED: hydrALAZINE HCL 25 MG TABLET ONE (08:25)
[2021-05-31] MEDS: LABETALOL HCL 200 MG TABLET PO SCH ×2 (08:28→17:00)
[2021-05-31] MEDS: hydrALAZINE HCL 50 MG TABLET PO SCH ×3 (08:28→17:00)
[2021-05-31] MEDS: NIFEdipine XL 60 MG TABSR PO SCH ×2 (08:28→20:43)
[2021-05-31] MEDS ORDERED: PIPERACILLIN/TAZO 0.75 G in IV DEXTROSE 5% 50 ML IV PRN (08:30)
[2021-05-31] MEDS ORDERED: MORPHINE SULFATE 2 MG/1 ML DISP.SYRIN ONE (08:42)
[2021-05-31] MEDS: PANTOPRAZOLE SODIUM 40 MG TABLET.DR PO SCH (08:52)
[2021-05-31] MEDS ORDERED: PANTOPRAZOLE SODIUM 40 MG TABLET.DR PO ONE (08:54)
[2021-05-31] MEDS ORDERED: hydrALAZINE HCL 20 MG/1 ML VIAL IV STA (09:06)
[2021-05-31] MEDS ORDERED: IOHEXOL 350 100 ML INFUS..BTL ONE (09:23)
[2021-05-31] MEDS ORDERED: SWABABLE VALVE TRANSFER SET EA MC ONE (09:24)
[2021-05-31] MEDS ORDERED: IV NORMAL SALINE 250 ML IV ONE (09:24)
--- NOTE | 2021-05-31 09:30 | NUR ---
Pt signed consent for CTA, placed in the chart.
--- NOTE | 2021-05-31 09:33 | NUR ---
Dr Costa spoke to Dr Whiting.
[2021-05-31] MEDS ORDERED: hydrALAZINE HCL 20 MG/1 ML VIAL ONE (09:43)
--- NOTE | 2021-05-31 09:50 | NUR ---
Admitting Dr Evelio MARSH at the bedside.
--- NOTE | 2021-05-31 10:00 | NUR ---
Dr Whiting at the bedside for medical screening.
--- NOTE | 2021-05-31 10:04 | NUR ---
Patient is resting comfortably in bed with eyes closed, NAD noted.
--- NOTE | 2021-05-31 10:22 | NUR ---
Pt out of ER for CT.
--- NOTE | 2021-05-31 11:00 | NUR ---
Pt back from Ct, denies pain and nausea.
--- NOTE | 2021-05-31 13:02 | NUR ---
Lunch tray provided, pt ate w/ poor appetite.
--- NOTE | 2021-05-31 14:36 | NUR ---
Patient is resting comfortably in bed with eyes closed, NAD noted.
[2021-05-31] MEDS ORDERED: HEPARIN SODIUM,PORCINE 5,000 UNITS/ML VIAL SQ STA (15:22)
[2021-05-31] MEDS ORDERED: DEXAMETHASONE SOD PHOSPHATE 4 MG INJ IV STA (15:22)
[2021-05-31] MEDS ORDERED: HEPARIN SODIUM,PORCINE 5,000 UNITS/ML VIAL ONE (15:39)
[2021-05-31] MEDS ORDERED: DEXAMETHASONE SOD PHOSPHATE 10 MG INJ ONE (15:39)
[2021-05-31] MEDS ORDERED: PIPERACILLIN/TAZOBACTAM/D5W 50 ML ONE (15:42)
[2021-05-31] MEDS: PIPERACILLIN/TAZO 2.25 G in IV DEXTROSE 5% 50 ML IV SCH (16:05)
--- NOTE | 2021-05-31 19:19 | NUR ---
Recieved report from JASON Moctezuma.
--- NOTE | 2021-05-31 19:50 | NUR ---
Pt is sleeping. Vss. No labored breathing, good color. No signs of distress. Will continue to monitor.
[2021-05-31] MEDS ORDERED: DOCUSATE SODIUM 100 MG CAPSULE PO ONE (20:52)
[2021-05-31] MEDS: DOCUSATE SODIUM 100 MG CAPSULE PO SCH (20:57)
--- NOTE | 2021-05-31 21:02 | NUR ---
Pt. resting in bed, requested lights off so he could sleep. Pt. currently afebrile. Denied any pain, nausea, sob.
--- NOTE | 2021-05-31 22:32 | NUR ---
Pt woke up to eat the rest of his dinner. Spo2 is 98% w/ 5L nc.
--- NOTE | 2021-06-01 01:09 | NUR ---
pt is resting w/ eyes closed comfortably. Denies any new symptoms.
--- NOTE | 2021-06-01 01:19 | NUR ---
Report given to JASON Jerome.
[2021-06-01 03:26] VITALS: BP 113/67
[2021-06-01 04:35] VITALS: BP 112/72
[2021-06-01] MEDS ORDERED: PIPERACILLIN/TAZOBACTAM/D5W 50 ML ONE (05:27)
[2021-06-01] MEDS: PIPERACILLIN/TAZO 2.25 G in IV DEXTROSE 5% 50 ML IV SCH ×2 (05:50→17:11)
[2021-06-01] MEDS: PANTOPRAZOLE SODIUM 40 MG TABLET.DR PO SCH (06:02)
[2021-06-01] MEDS ORDERED: VANCOMYCIN IV 500 MG in IV DEXTROSE 5% 100 ML IV PRN (06:30)
--- NOTE | 2021-06-01 07:02 | NUR ---
Pt in no distress. Denies pain or SOB. Able to make needs known. On PUI precautions. Safety and comfort provided. Will endorse to day shift.
[2021-06-01 07:19] LABS: HEMATOCRIT 33.5 % (36.7-47.1); MEAN CORPUSCULAR HEMOGLOBIN 30.5 uug (23.8-33.4); MEAN CORPUSCULAR VOLUME 94.1 fL (73.0-96.2); PLATELET COUNT (AUTO) 99 K/uL (152-348)
[2021-06-01 07:55] LABS: MAGNESIUM 2.8 mg/dL (1.8-2.4); POTASSIUM 5.6 mmol/L (3.5-5.1); TOTAL PROTEIN, SERUM 6.1 g/dL (6.4-8.2)
--- NOTE | 2021-06-01 08:00 | NUR ---
RECEIVED PATIENT IN HIS ROOM AWAKE ALERT AND ORIENTED HE IS AMBULATORY TO AND FROM THE BATHROOM WITH STEADY GAIT NO SOB AT THIS TIME REMAIN ON COVID ISOLATION AND PRECAUTION ORDERED.JW CATH LEFT UPPER CHEST IS INTACT CALL LIGHTS AND HIS PERSONAL BELONGINGS ARE WITHIN EASY REACH MADE COMFORTABLE WILL CONTINUE TO OBSERVE.
[2021-06-01 08:01] LABS: CREATININE 12.6 mg/dL (0.6-1.3); PHOSPHOROUS 9.8 mg/dL (2.5-4.9)
[2021-06-01] MEDS: SEVELAMER CARBONATE 800 MG TABLET PO SCH ×3 (08:33→17:09)
[2021-06-01] MEDS: NIFEdipine XL 60 MG TABSR PO SCH ×2 (08:34→20:40)
[2021-06-01] MEDS: hydrALAZINE HCL 50 MG TABLET PO SCH ×3 (08:35→17:08)
[2021-06-01] MEDS: LABETALOL HCL 200 MG TABLET PO SCH ×2 (08:36→17:09)
[2021-06-01 11:50] VITALS: BP 128/93
--- NOTE | 2021-06-01 14:12 | NUR ---
NOTED THAT HAS A NEGATIVE PCR RESULT IN THE [facility] PLUS A NEGATIVE RAPID CALLED DR CARDONA AND HE STATED THAT IT WAS OKAY FOR PATIENT TO BE TAKEN OFF ISOLATION AT THIS TIME HE IS CURRENTLY RECEIVING DIALYSIS AT THIS TIME WILL MOVE HIM TO ROOM 312 WHEN HIS DIALYSIS CONCLUDES.NO FEVER OR COUGH BUT HE IS ON O2 AT 4L/M BY NASAL CANULLA WITH NO SHORTNESS OF BREATH AT THIS TIME.
[2021-06-01 15:50] VITALS: BP 130/78
--- NOTE | 2021-06-01 17:30 | NUR ---
O2 TITRATED TO 2L/M AND HE IS SATING 96 PERCENT ALERT ORIENTED REMAIN ON ATB ORDERED WITH NO ADVERSE OR ALLERGIC REACTIONS AT THIS TIME.
[2021-06-01 20:00] VITALS: BP 105/75
--- NOTE | 2021-06-01 20:35 | NUR ---
Contacted Dr. Fraser regarding pt bp. Last BP 105/75, hold dose x1 per .
[2021-06-01] MEDS: DOCUSATE SODIUM 100 MG CAPSULE PO SCH (20:56)
[2021-06-02 04:00] VITALS: BP 176/112
[2021-06-02 04:25] VITALS: BP 176/112
[2021-06-02] MEDS: CLONIDINE HCL 0.1 MG TABLET PO PRN ×2 (04:30→10:49)
[2021-06-02] MEDS: PIPERACILLIN/TAZO 2.25 G in IV DEXTROSE 5% 50 ML IV SCH ×2 (04:30→17:15)
--- NOTE | 2021-06-02 04:33 | NUR ---
BP elevated this AM, PRN BP meds given. Patient asymptomatic at this time.
[2021-06-02 05:06] LABS: HEPATITIS B SURFACE AB Reactive (.); HEPATITIS B SURFACE AG Negative (Negative)
--- NOTE | 2021-06-02 05:49 | NUR ---
Patient awake and alert. Cooperative with care. Denies any pain or SOB. Afebrile. Independent with ADLs. PRN BP med this AM. Will f/u with effect.
[2021-06-02] MEDS: PANTOPRAZOLE SODIUM 40 MG TABLET.DR PO SCH (06:09)
[2021-06-02 06:36] LABS: HEMATOCRIT 29.6 % (36.7-47.1); MEAN CORPUSCULAR HEMOGLOBIN 30.1 uug (23.8-33.4); MEAN CORPUSCULAR VOLUME 93.9 fL (73.0-96.2); PLATELET COUNT (AUTO) 108 K/uL (152-348)
[2021-06-02 06:56] LABS: POTASSIUM 4.3 mmol/L (3.5-5.1)
[2021-06-02 07:40] LABS: CREATININE 9.5 mg/dL (0.6-1.3)
--- NOTE | 2021-06-02 08:00 | NUR ---
PATIENT IS AWAKE ALERT AND ORIENTED DENIES PAIN OR DISCOMFORTS JW CATH LEFT UPPER CHEST AREA IS INTACT WITH NO REDNESS ON SITE ON O2 AT 2L/M BY NASAL CANULLA WITH NO SHORTNESS OF BREATH AT THIS TIME REMAIN ON ATB ORDERED WITH NO S/S OF ADVERSE OR ALLERGIC REACTIONS AT THIS TIME.CALL LIGHTS AND PERSONAL BELONGINGS ARE WITHIN EASY REACH WILL CONTINUE TO OBSERVE.
[2021-06-02] MEDS: SEVELAMER CARBONATE 800 MG TABLET PO SCH ×3 (08:39→17:14)
[2021-06-02] MEDS: NIFEdipine XL 60 MG TABSR PO SCH ×2 (08:39→21:02)
[2021-06-02] MEDS: hydrALAZINE HCL 50 MG TABLET PO SCH ×3 (08:40→17:15)
[2021-06-02] MEDS: ISOSORBIDE DINITRATE 20 MG TABLET PO SCH ×3 (08:49→22:41)
[2021-06-02] MEDS: LABETALOL HCL 200 MG TABLET PO SCH ×2 (08:49→17:14)
--- NOTE | 2021-06-02 10:49 | NUR ---
BLOOD PRESSURE AT THIS TIME IS 187/118 PATIENT SEEN AND EXAMINED BY IAN VU WITH NO NEW ORDERS STATED TO GIVE PRN BLOOD PRESSURE MEDICATION ORDERED.
--- NOTE | 2021-06-02 13:19 | NUR ---
BLOOD PRESSURE RECHECKED AND ITS 168/103 DUE BLOOD PRESSURE MEDICATIONS GIVEN ORDERED PATIENT IS ASSYMPTOMATIC RESTING IN BED AT THIS TIME.WILL CONTINUE TO OBSERVE.
[2021-06-02 15:42] VITALS: BP 108/69
--- NOTE | 2021-06-02 18:00 | NUR ---
DR MORRIS SEEN PATIENT WITH ORDER FOR HEMODIALYSIS TOMORROW AND NOTED
[2021-06-02 20:00] VITALS: BP 116/77
[2021-06-02] MEDS: DOCUSATE SODIUM 100 MG CAPSULE PO SCH (21:01)
[2021-06-03 05:16] VITALS: BP 120/75
[2021-06-03] MEDS: ISOSORBIDE DINITRATE 20 MG TABLET PO SCH ×2 (05:17→13:02)
[2021-06-03] MEDS: PANTOPRAZOLE SODIUM 40 MG TABLET.DR PO SCH (06:14)
--- NOTE | 2021-06-03 06:21 | NUR ---
PATIENT ALERT ORIENTED NO SOB NO CHEST PAIN, NO COMPLAIN OF PAIN, BP STABLE, NO BLEEDING NOTED FROM LEFT CHEST PERMA CATH, DRESSING INTACT, CONT TO MONITOR.
[2021-06-03 06:56] LABS: POTASSIUM 4.5 mmol/L (3.5-5.1); VANCOMYCIN,RANDOM 13.9 ug/mL (18.0-26.0)
[2021-06-03 07:48] LABS: CREATININE 11.5 mg/dL (0.6-1.3)
--- NOTE | 2021-06-03 07:50 | NUR ---
EMORY FROM LAB CALLED WITH CRITICAL CREATININE LAB VALUE OF 11.5. MADE AWARE, STATED PT TO HAVE DIALYSIS TODAY.
--- NOTE | 2021-06-03 08:00 | NUR ---
PT IN BED RESTING, A/OX4, PT ON ROOM AIR, NO SIGNS OF DISTRESS, NO REPORTS OF PAIN AT THIS TIME. PT AMBULATORY, BRP. IV ACCESS ON THE LEFT FA 20G SALINE LOCK. PT HAS JW CATH ON THE LEFT CHEST. BED LOW AND LCOKED, CALL LIGHT WITHIN REACH, WILL CONTINUE TO MONITOR.
[2021-06-03] MEDS: LABETALOL HCL 200 MG TABLET PO SCH ×2 (09:05→16:56)
[2021-06-03] MEDS: NIFEdipine XL 60 MG TABSR PO SCH (09:06)
[2021-06-03] MEDS: hydrALAZINE HCL 50 MG TABLET PO SCH ×3 (09:06→16:56)
[2021-06-03] MEDS: SEVELAMER CARBONATE 800 MG TABLET PO SCH ×3 (09:06→13:01)
[2021-06-03 09:22] LABS: HEMATOCRIT 32.7 % (36.7-47.1); MEAN CORPUSCULAR VOLUME 93.1 fL (73.0-96.2); PLATELET COUNT (AUTO) 171 K/uL (152-348)
[2021-06-03 09:33] LABS: BILIRUBIN,DIRECT 0.2 mg/dL (0.0-0.2); BILIRUBIN,TOTAL 0.7 mg/dL (0.2-1.0)
[2021-06-03 11:00] VITALS: BP 120/75
--- NOTE | 2021-06-03 12:00 | NUR ---
PT REFUSED RENVELA MEDICATION, PT GIVEN EDUCATION INFORMATION ON MEDICATION, PT STATED HE HAS "TOO MANY MEDICATIONS AND ONLY WANTS THE ONES FOR HIS BLOOD PRESSURE".
[2021-06-03] MEDS ORDERED: HYDR50TA68 PO (13:47)
[2021-06-03] MEDS ORDERED: LABE200T8 PO (13:47)
[2021-06-03] MEDS ORDERED: NIFE60TA2 PO (13:47)
[2021-06-03] MEDS ORDERED: ISOS20TA8 PO (13:47)
[2021-06-03 16:00] VITALS: BP 117/66
[2021-06-03] MEDS ORDERED: VANCOMYCIN IV 1,000 MG in IV DEXTROSE 5% 250 ML IV ONE (16:00)
[2021-06-03 16:56] VITALS: BP 117/66
--- NOTE | 2021-06-03 17:00 | NUR ---
PT DISCHARGED HOME WITH ALL BELONGINGS. PT A/OX4, ON ROOM AIR, NO SIGNS OF DISTRESS, NO REPORTS OF PAIN AT THIS TIME. PT AMBULATORY, PT GIVEN FOLLOW UP INSTRUCTIONS, PT MADE AWARE OF FOLLOW UP APPT FOR DIALYSIS. PT GIVEN ALL DISCHARGED INSTRUCTIONS AND EDUCATION, PT VERBALIZED UNDERSTANDING. VITALS BP 117/66, TEMP 97.6, PULSE 78. PT HAS PERMACATH IN THE LEFT CHEST. PT LEFT VIA PRIVATE CAR WITH FAMILY MEMBER.
== END 2021-06-03 17:30 | disposition home or self-care (01) | DRG 721 ==
LOC: ER 00:44 → TRANSITION 06:02 → TELE3 06:04 → MEDSURG3 06-01 10:20
PROVIDERS: ADMIT Family Medicine; ATTEND Internal Medicine
PROC: 5A1D70Z Performance of Urinary Filtration, Intermittent, Less than 6 Hours Per Day (ICD-10-PCS; principal; 2021-06-01)
DX: T80.211A Bloodstream infection due to central venous catheter, initial encounter (principal); A41.01 Sepsis due to Methicillin susceptible Staphylococcus aureus; J96.91 Respiratory failure, unspecified with hypoxia; I50.31 Acute diastolic (congestive) heart failure; I31.3 Pericardial effusion (noninflammatory); E87.1 Hypo-osmolality and hyponatremia; D63.8 Anemia in other chronic diseases classified elsewhere; N18.6 End stage renal disease; J18.9 Pneumonia, unspecified organism; I13.2 Hypertensive heart and chronic kidney disease with heart failure and with stage 5 chronic kidney disease, or end stage renal disease; I16.0 Hypertensive urgency; Z99.2 Dependence on renal dialysis; E78.5 Hyperlipidemia, unspecified; I25.10 Atherosclerotic heart disease of native coronary artery without angina pectoris; Z86.16 Personal history of COVID-19; Z20.822 Contact with and (suspected) exposure to COVID-19; Z87.01 Personal history of pneumonia (recurrent); Z91.15 Patient's noncompliance with renal dialysis; Q78.9 Osteochondrodysplasia, unspecified; Y84.8 Other medical procedures as the cause of abnormal reaction of the patient, or of later complication, without mention of misadventure at the time of the procedure; Y92.009 Unspecified place in unspecified non-institutional (private) residence as the place of occurrence of the external cause; Z86.19 Personal history of other infectious and parasitic diseases; I25.2 Old myocardial infarction
CPT/HCPCS: 36415; 36600; 70030-TC; 71045; 71275; 83605; 83615; 83735; 84100; 85025; 85730; 86140; 86706; 87040; 87077; 87340; 87400; 93005; A4663; G0378; J0360; J0696; J1100; J1644; J2270; J2405; J2543; J3370; J7030; J7040; J7050; J7060; Q0144; Q9967; U0003

== ENCOUNTER 2021-08-04 15:52 | Inpatient (IN) | payer MEDICAID ==
[~2021-08-04] VITALS: Ht 165.1 cm; Wt 71.7 kg
[~2021-08-04 15:52] MED LIST changes: -CLON0.1T14 PO; +ISOS20TA8 PO
[2021-08-04] MEDS ORDERED: IV NORMAL SALINE 500 ML BAG IV ONE (16:30)
[2021-08-04] MEDS ORDERED: VANCOMYCIN IV 1,000 MG in IV DEXTROSE 5% 250 ML IV ONE (16:30)
[2021-08-04] MEDS ORDERED: CEFEPIME HCL 1 G in IV DEXTROSE 5% 50 ML IV ONE (16:30)
[2021-08-04] MEDS ORDERED: CEFEPIME HCL 1 G VIAL ONE (16:45)
[2021-08-04] MEDS ORDERED: VANCOMYCIN IV 200 ML ONE (16:45)
[2021-08-04 17:00] LABS: HEMATOCRIT 31.6 % (36.7-47.1); MEAN CORPUSCULAR HEMOGLOBIN 29.9 uug (23.8-33.4); MEAN CORPUSCULAR VOLUME 89.4 fL (73.0-96.2); PLATELET COUNT (AUTO) 157 K/uL (152-348)
[2021-08-04] MEDS ORDERED: ACETAMINOPHEN ES 500 MG TABLET PO ONE (17:00)
[2021-08-04 17:08] LABS: BILIRUBIN,DIRECT 0.2 mg/dL (0.0-0.2); BILIRUBIN,TOTAL 1.2 mg/dL (0.2-1.0); POTASSIUM 5.2 mmol/L (3.5-5.1); TOTAL PROTEIN, SERUM 8.3 g/dL (6.4-8.2)
[2021-08-04 17:12] LABS: CREATININE 10.2 mg/dL (0.6-1.3)
[2021-08-04] MEDS ORDERED: ACETAMINOPHEN ES 500 MG TABLET ONE (17:20)
[2021-08-04] MEDS ORDERED: ASPIRIN 81 MG TAB.CHEW PO ONE (17:30)
--- NOTE | 2021-08-04 17:45 | NUR ---
Dr. Maldonado spoke with Dr. Jacobson and pt has been accepted for tele admission. Pt resting with NAD noted at this time. Called for tele bed assignment, no tele beds available at this time.
[2021-08-04] MEDS ORDERED: ASPIRIN 81 MG TAB.CHEW ONE (17:49)
--- NOTE | 2021-08-04 18:29 | NUR ---
Pt resting with NAD noted, pending tele admission.
[2021-08-04] MEDS ORDERED: ONDANSETRON 4 MG/2 ML VIAL IV PRN (19:00)
--- NOTE | 2021-08-04 19:03 | NUR ---
RECEIVED REPORT FROM JASON FORTUNE. PT NOTED TO BE IN BED, RESTING COMFORTABLY. BREATHING EVEN AND UNLABORED.
[2021-08-04] MEDS ORDERED: PIPERACILLIN/TAZO 2.25 G in IV DEXTROSE 5% 50 ML IV SCH (20:00)
--- NOTE | 2021-08-04 20:09 | NUR ---
REPORT GIVEN TO MELODY. PT GOING TO CCU OVERFLOW.
--- NOTE | 2021-08-04 20:30 | NUR ---
Pt. admitted to TELE-CCU OVERFLOW , under care of DX: SEPSIS Belongs List completed
[2021-08-04 21:00] VITALS: BP 158/102
[2021-08-04] MEDS: NIFEdipine XL 60 MG TABSR PO SCH (21:11)
[2021-08-04] MEDS: ISOSORBIDE DINITRATE 20 MG TABLET PO SCH (21:12)
[2021-08-04] MEDS: MORPHINE SULFATE 4 MG/1 ML DISP.SYRIN IV PRN (21:13)
[2021-08-04 22:00] VITALS: BP 160/100
[2021-08-04] MEDS ORDERED: ISOSORBIDE DINITRATE 10 MG TABLET PO SCH (22:00)
[2021-08-04] MEDS: PIPERACILLIN/TAZO 2.25 G in IV DEXTROSE 5% 50 ML IV SCH (22:02)
[2021-08-04] MEDS: ACETAMINOPHEN 325 MG TABLET PO PRN (22:03)
[2021-08-04] MEDS: hydrALAZINE HCL 50 MG TABLET PO SCH (22:04)
[2021-08-05] VITALS (9 sets, daily range): BP systolic 96–150; BP diastolic 47–102
[2021-08-05] MEDS: ACETAMINOPHEN 325 MG TABLET PO PRN (03:09)
[2021-08-05 05:09] LABS: HEMATOCRIT 28.9 % (36.7-47.1); MEAN CORPUSCULAR HEMOGLOBIN 29.9 uug (23.8-33.4); MEAN CORPUSCULAR VOLUME 90.3 fL (73.0-96.2); PLATELET COUNT (AUTO) 132 K/uL (152-348)
[2021-08-05] MEDS: PIPERACILLIN/TAZO 2.25 G in IV DEXTROSE 5% 50 ML IV SCH ×3 (05:11→22:53)
[2021-08-05] MEDS: hydrALAZINE HCL 50 MG TABLET PO SCH ×3 (05:13→22:51)
[2021-08-05] MEDS: ISOSORBIDE DINITRATE 20 MG TABLET PO SCH ×3 (05:14→21:00)
[2021-08-05] MEDS: PANTOPRAZOLE SODIUM 40 MG TABLET.DR PO SCH (05:14)
[2021-08-05 05:19] LABS: BILIRUBIN,TOTAL 1.6 mg/dL (0.2-1.0); MAGNESIUM 2.3 mg/dL (1.8-2.4); POTASSIUM 5.2 mmol/L (3.5-5.1)
[2021-08-05 05:27] LABS: CREATININE 12.3 mg/dL (0.6-1.3)
[2021-08-05] MEDS ORDERED: VANCOMYCIN IV 500 MG in IV DEXTROSE 5% 100 ML IV PRN ×2 (06:30→19:45)
--- NOTE | 2021-08-05 07:00 | NUR ---
transferred to room 330 fr CCU tele overflow; pt had fever and tylenol and cooling measures done; needs attended; safety maintained; antibiotics administered and tolerated well
[2021-08-05] MEDS: SEVELAMER CARBONATE 800 MG TABLET PO SCH ×3 (08:25→17:49)
[2021-08-05] MEDS: NIFEdipine XL 60 MG TABSR PO SCH ×2 (10:06→21:00)
[2021-08-05] MEDS: LABETALOL HCL 200 MG TABLET PO SCH ×2 (10:06→17:00)
--- NOTE | 2021-08-05 19:03 | NUR ---
Patient resting in bed. AOx4. On 2L O2 via NC ,saturating 96-98%. No signs of acute distress. Patient denies pain/ discomfort at this time. Compliant with medications and care. IV access patent and intact. Bed alarm on. Call light within reach. Will endorse to incoming shift for continuity of care.
--- NOTE | 2021-08-05 21:06 | NUR ---
Received pt awake on bed with no respiratory distress noted. He is alert and oriented 4, able to make needs known. NSR on tele. 2100H medications not given, pt currently on dialysis. Dialysis nurse at bedside. All needs attended. Call light placed within reach. Will continue to monitor.
[2021-08-05] MEDS ORDERED: VANCOMYCIN IV 500 MG in IV DEXTROSE 5% 100 ML IV ONE (23:00)
--- NOTE | 2021-08-05 23:57 | NUR ---
Pt's vital signs WNL s/p hemodialysis, BP 128/74, 2L fluid removed per dialysis nurse. Vancocin IV given post dialysis. He is alert and oriented x4, currently watching a movie on his phone. Denies pain and discomfort at this time. Will continue to monitor.
[2021-08-06] MEDS: MORPHINE SULFATE 4 MG/1 ML DISP.SYRIN IV PRN (00:53)
--- NOTE | 2021-08-06 01:08 | NUR ---
IV on R AC removed d/t complaint of pain. Inserted new IV on R hand G#22, patent and intact. Morphine IV PRN given for generalized pain. All needs attended.
[2021-08-06] MEDS: ISOSORBIDE DINITRATE 20 MG TABLET PO SCH ×3 (05:02→21:06)
[2021-08-06] MEDS: hydrALAZINE HCL 50 MG TABLET PO SCH ×3 (05:03→21:05)
[2021-08-06] MEDS: PIPERACILLIN/TAZO 2.25 G in IV DEXTROSE 5% 50 ML IV SCH ×2 (05:03→13:01)
--- NOTE | 2021-08-06 05:21 | NUR ---
At 0442H, received call from lab. Pt's blood culture drawn on 08/04 at 1650H, all 4 bottles with gram (+) cocci in clusters. James SMALL made aware.
[2021-08-06] MEDS: PANTOPRAZOLE SODIUM 40 MG TABLET.DR PO SCH (06:26)
[2021-08-06 07:08] LABS: HEMATOCRIT 27.8 % (36.7-47.1); MEAN CORPUSCULAR HEMOGLOBIN 29.7 uug (23.8-33.4); MEAN CORPUSCULAR VOLUME 90.3 fL (73.0-96.2); PLATELET COUNT (AUTO) 104 K/uL (152-348)
[2021-08-06 07:36] LABS: MAGNESIUM 2.5 mg/dL (1.8-2.4); POTASSIUM 4.7 mmol/L (3.5-5.1); TOTAL PROTEIN, SERUM 6.7 g/dL (6.4-8.2)
[2021-08-06 07:37] LABS: CREATININE 8.9 mg/dL (0.6-1.3)
[2021-08-06] MEDS: SEVELAMER CARBONATE 800 MG TABLET PO SCH ×3 (08:33→17:09)
[2021-08-06] MEDS: NIFEdipine XL 60 MG TABSR PO SCH ×2 (08:37→21:05)
[2021-08-06] MEDS: LABETALOL HCL 200 MG TABLET PO SCH ×2 (08:38→17:09)
[2021-08-06 11:32] VITALS: BP 136/82
[2021-08-06 15:39] VITALS: BP_SYST 116; BP_SYST 99; BP_DIAS 39; BP_DIAS 71
--- NOTE | 2021-08-06 18:05 | NUR ---
patient alert, oriented x4, no distress noted, catheter intact at left upper chest, no signs and symptoms of bleeding noted, ambulatory, self care.
[2021-08-06 20:00] VITALS: BP 145/86
[2021-08-07] VITALS: BP 129/72
--- NOTE | 2021-08-07 02:26 | NUR ---
Received pt awake on bed with no respiratory distress noted. He is alert and oriented 4, able to make needs known. NSR on tele. Denies pain and discomfort at this time. Due medications given on time and tolerated well. All needs attended. Call light placed within reach. Will continue to monitor.
[2021-08-07 04:00] VITALS: BP 140/80
[2021-08-07] MEDS: ISOSORBIDE DINITRATE 20 MG TABLET PO SCH ×3 (05:32→20:12)
[2021-08-07] MEDS: hydrALAZINE HCL 50 MG TABLET PO SCH ×3 (05:33→21:49)
[2021-08-07] MEDS: PANTOPRAZOLE SODIUM 40 MG TABLET.DR PO SCH (06:04)
[2021-08-07 07:17] LABS: HEMATOCRIT 28.5 % (36.7-47.1); MEAN CORPUSCULAR HEMOGLOBIN 29.8 uug (23.8-33.4); MEAN CORPUSCULAR VOLUME 90.4 fL (73.0-96.2); PLATELET COUNT (AUTO) 125 K/uL (152-348)
[2021-08-07 07:43] LABS: MAGNESIUM 2.5 mg/dL (1.8-2.4); PHOSPHOROUS 7.1 mg/dL (2.5-4.9); POTASSIUM 4.6 mmol/L (3.5-5.1)
--- NOTE | 2021-08-07 07:55 | NUR ---
pt creatinine reported by lab 11.5 dr gibson made aware
[2021-08-07 07:56] LABS: CREATININE 11.5 mg/dL (0.6-1.3)
[2021-08-07] MEDS: LABETALOL HCL 200 MG TABLET PO SCH ×2 (08:37→16:07)
[2021-08-07] MEDS: SEVELAMER CARBONATE 800 MG TABLET PO SCH ×3 (08:37→17:05)
[2021-08-07] MEDS: NIFEdipine XL 60 MG TABSR PO SCH ×2 (08:38→20:12)
[2021-08-07] MEDS ORDERED: EPOETIN ALFA-EPBX 10,000 UNIT/ML VIAL SQ ONE (10:00)
[2021-08-07] MEDS ORDERED: EPOETIN ALFA 10,000 UNITS/ML VIAL SQ ONE (10:00)
[2021-08-07 11:22] VITALS: BP 152/89
[2021-08-07 16:10] VITALS: BP 119/66
[2021-08-07 20:25] VITALS: BP 118/86
[2021-08-08 04:30] VITALS: BP 148/86
[2021-08-08] MEDS: hydrALAZINE HCL 50 MG TABLET PO SCH ×2 (05:07→13:37)
[2021-08-08] MEDS: ISOSORBIDE DINITRATE 20 MG TABLET PO SCH ×2 (05:08→12:38)
[2021-08-08] MEDS: PANTOPRAZOLE SODIUM 40 MG TABLET.DR PO SCH (06:09)
[2021-08-08] MEDS: SEVELAMER CARBONATE 800 MG TABLET PO SCH ×2 (08:41→12:37)
[2021-08-08] MEDS: LABETALOL HCL 200 MG TABLET PO SCH (08:42)
[2021-08-08] MEDS: NIFEdipine XL 60 MG TABSR PO SCH (08:43)
[2021-08-08 11:13] VITALS: BP 139/88
--- NOTE | 2021-08-08 14:46 | NUR ---
patient senait [place], family picked him up Addendum: 08/08/21 at 1728 by SALLY QUEVEDO RN RN CORRECTION TO TIME : PATIENT SENAIT [place] AT [id number]
[2021-08-08 14:52] VITALS: BP 140/86
--- NOTE | 2021-08-08 16:26 | NUR ---
patient wanted to go home AMA, risks explained, patient verbalized understanding of it, dr Jeffrey salcido. patient denied educational material, however provided verbally instructions, stated understanding of it, IV removed. ID band removed, belongings are accounted and signed Addendum: 08/08/21 at 1729 by SALLY QUEVEDO RN, RN ID recommendations explained to patient as well, patient stated understanding, but still wanted to go home AMA. Addendum: 08/08/21 at 1743 by SALLY QUEVEDO RN RN Patient is alert, oriented x4, self care, ambulatory, no distress noted
[2021-08-08] MEDS ORDERED: CEPH500T PO ×2 (16:42→16:52)
--- NOTE | 2021-08-08 16:46 | NUR ---
PATIENT LEFT AMA, PICKED UP BY FAMILY
[2021-08-08] MEDS ORDERED: CEFAZOLIN 1 G in IV DEXTROSE 5% 50 ML IV SCH (18:00)
[2021-08-10 16:00] LABS: HEPATITIS B SURFACE AG NEGATIVE
== END 2021-08-08 16:50 | disposition left against medical advice (07) | DRG 721 ==
LOC: EDBD → ER 15:52 → CCU 20:20 → TELE3 08-05 06:46 → MEDSURG3 08-07 08:40
PROVIDERS: ADMIT Internal Medicine; ATTEND Internal Medicine
PROC: 5A1D70Z Performance of Urinary Filtration, Intermittent, Less than 6 Hours Per Day (ICD-10-PCS; principal; 2021-08-05)
DX: T80.211A Bloodstream infection due to central venous catheter, initial encounter (principal); A41.01 Sepsis due to Methicillin susceptible Staphylococcus aureus; I50.33 Acute on chronic diastolic (congestive) heart failure; E46 Unspecified protein-calorie malnutrition; D63.1 Anemia in chronic kidney disease; I27.20 Pulmonary hypertension, unspecified; E88.09 Other disorders of plasma-protein metabolism, not elsewhere classified; E83.9 Disorder of mineral metabolism, unspecified; N18.6 End stage renal disease; I13.2 Hypertensive heart and chronic kidney disease with heart failure and with stage 5 chronic kidney disease, or end stage renal disease; Z99.2 Dependence on renal dialysis; I16.0 Hypertensive urgency; E87.5 Hyperkalemia; I25.10 Atherosclerotic heart disease of native coronary artery without angina pectoris; Z20.822 Contact with and (suspected) exposure to COVID-19; E78.5 Hyperlipidemia, unspecified; Y84.8 Other medical procedures as the cause of abnormal reaction of the patient, or of later complication, without mention of misadventure at the time of the procedure; Z68.26 Body mass index [BMI] 26.0-26.9, adult; R73.03 Prediabetes
CPT/HCPCS: 36415; 70030-TC; 71045; 83605; 83735; 84100; 85025; 85730; 87040; 87340; 90937; 93005; A4663; A9150; G0378; J0690; J0692; J0885; J2270; J2405; J2543; J3370; J7030; J7040; J7050; J7060

== ENCOUNTER 2021-08-21 19:59 | Inpatient (IN) | payer MEDICAID ==
[~2021-08-21] VITALS: Ht 167.6 cm; Wt 68.0 kg
[2021-08-21] MEDS ORDERED: CEFTAZIDIME 1 G in IV DEXTROSE 5% 50 ML IV ONE (22:00)
[2021-08-21] MEDS ORDERED: GENTAMICIN SULFATE INJ 80 MG in IV DEXTROSE 5% 100 ML IV ONE (22:00)
--- NOTE | 2021-08-21 22:00 | NUR ---
PATIENT WAS MSE BY DR CHOUDHURY IN ROM 04B.
[2021-08-21] MEDS ORDERED: CEFTAZIDIME 1 G VIAL ONE (23:16)
[2021-08-21] MEDS ORDERED: hydrALAZINE HCL 20 MG/1 ML VIAL IV ONE (23:30)
[2021-08-21] MEDS ORDERED: OXYCODONE/APAP 5-325 MG TABLET PO ONE (23:30)
[2021-08-21 23:34] LABS: BILIRUBIN,DIRECT 0.3 mg/dL (0.0-0.2); BILIRUBIN,TOTAL 1.2 mg/dL (0.2-1.0); POTASSIUM 4.4 mmol/L (3.5-5.1)
[2021-08-21] MEDS ORDERED: OXYCODONE/APAP 5-325 MG TABLET ONE (23:39)
[2021-08-21] MEDS ORDERED: hydrALAZINE HCL 20 MG/1 ML VIAL ONE (23:39)
[2021-08-21] MEDS ORDERED: GENTAMICIN SULFATE 80 MG/2 ML VIAL ONE (23:42)
[2021-08-21 23:57] LABS: HEMATOCRIT 24.2 % (36.7-47.1); MEAN CORPUSCULAR HEMOGLOBIN 29.3 uug (23.8-33.4); MEAN CORPUSCULAR VOLUME 89.2 fL (73.0-96.2); PLATELET COUNT (AUTO) 126 K/uL (152-348)
[2021-08-22 00:01] LABS: CREATININE 10.5 mg/dL (0.6-1.3)
--- NOTE | 2021-08-22 00:50 | NUR ---
DR WILLIS CALLED WAITING FOR CALLBACK.
--- NOTE | 2021-08-22 00:58 | NUR ---
DR WILLIS CALLED BACK GIVE PATIENT TO [facility] FOR ADMISSION.
--- NOTE | 2021-08-22 01:00 | NUR ---
DR CARDONA CALLED BACK ACCEPTED PATIENT FOR ADMISSION
[2021-08-22] MEDS ORDERED: Z GUARD REMEDY PASTE 57 GM TUBE TOP PRN (01:30)
[2021-08-22] MEDS ORDERED: MAGNESIUM HYDROXIDE 30 ML LIQUID UDC PO PRN (01:30)
[2021-08-22] MEDS ORDERED: ONDANSETRON 4 MG/2 ML VIAL IV PRN (01:30)
[2021-08-22 02:30] VITALS: BP 117/75
[2021-08-22 04:25] VITALS: BP 106/65
[2021-08-22] MEDS: PANTOPRAZOLE SODIUM 40 MG TABLET.DR PO SCH (05:49)
[2021-08-22] MEDS: ACETAMINOPHEN 325 MG TABLET PO PRN (05:52)
[2021-08-22 07:55] LABS: HEMATOCRIT 25.2 % (36.7-47.1); MEAN CORPUSCULAR HEMOGLOBIN 29.8 uug (23.8-33.4); MEAN CORPUSCULAR VOLUME 89.8 fL (73.0-96.2); PLATELET COUNT (AUTO) 105 K/uL (152-348)
[2021-08-22 08:05] LABS: MAGNESIUM 2.3 mg/dL (1.8-2.4); PHOSPHOROUS 6.1 mg/dL (2.5-4.9); POTASSIUM 4.7 mmol/L (3.5-5.1)
[2021-08-22 08:20] LABS: CREATININE 11.5 mg/dL (0.6-1.3)
[2021-08-22] MEDS: SEVELAMER CARBONATE 800 MG TABLET PO SCH ×3 (09:29→17:41)
[2021-08-22] MEDS: LABETALOL HCL 200 MG TABLET PO SCH ×2 (09:30→17:44)
[2021-08-22] MEDS: NIFEdipine XL 60 MG TABSR PO SCH ×2 (09:30→20:22)
[2021-08-22] MEDS: hydrALAZINE HCL 50 MG TABLET PO SCH ×3 (09:39→22:14)
[2021-08-22 11:06] VITALS: BP 119/75
[2021-08-22 15:07] VITALS: BP 108/60
[2021-08-22] MEDS ORDERED: FAMO20TA8 PO (15:42)
[2021-08-22 17:44] VITALS: BP 115/68
--- NOTE | 2021-08-22 18:48 | NUR ---
consent obtained for hemodialysis
--- NOTE | 2021-08-22 19:45 | NUR ---
Patient AALOx4 .On RA in no apparent distress noted. Denies pain . HD catheter on left upper chest with dressing intact. IV on Rt Fa patent and intact.Safety measures in place. Call light with in reach.
[2021-08-22 20:13] VITALS: BP 129/80
[2021-08-23] MEDS: ZOLPIDEM 5 MG TABLET PO PRN ×2 (00:25→22:08)
[2021-08-23] MEDS: ACETAMINOPHEN 325 MG TABLET PO PRN (02:40)
[2021-08-23 04:35] VITALS: BP 111/65
[2021-08-23] MEDS: hydrALAZINE HCL 50 MG TABLET PO SCH ×3 (05:56→22:09)
[2021-08-23] MEDS: PANTOPRAZOLE SODIUM 40 MG TABLET.DR PO SCH (06:02)
[2021-08-23 07:00] LABS: FERRITIN 832 ng/mL (26-388)
[2021-08-23] MEDS: SEVELAMER CARBONATE 800 MG TABLET PO SCH ×3 (08:17→17:41)
[2021-08-23] MEDS: NIFEdipine XL 60 MG TABSR PO SCH ×2 (08:18→20:22)
[2021-08-23] MEDS: LABETALOL HCL 200 MG TABLET PO SCH ×2 (08:19→17:41)
[2021-08-23 11:00] VITALS: BP 161/93
[2021-08-23 16:00] VITALS: BP 168/107
--- NOTE | 2021-08-23 17:30 | NUR ---
patient noted with elevated blood pressure 168/107 regardless of blood pressure medication, Magda notified new order for x1 hydralazine 50mg, noted and carried out.
[2021-08-23] MEDS ORDERED: hydrALAZINE HCL 50 MG TABLET PO ONE (18:00)
[2021-08-23] MEDS: GABAPENTIN 300 MG CAPSULE PO SCH (18:12)
--- NOTE | 2021-08-23 19:56 | NUR ---
Patient resting in bed awake alert and able to make needs known.Denies pain at this time.HD catheter in place on left upper chest wall.S/p dialysis done this morning per report.No active bleeding noted.Continue safety measures. Call light with in reach.
[2021-08-23 20:43] VITALS: BP 154/96
[2021-08-24 04:38] VITALS: BP 120/79
[2021-08-24] MEDS: hydrALAZINE HCL 50 MG TABLET PO SCH ×3 (05:53→22:22)
[2021-08-24] MEDS: ACETAMINOPHEN 325 MG TABLET PO PRN (05:54)
[2021-08-24] MEDS: PANTOPRAZOLE SODIUM 40 MG TABLET.DR PO SCH (06:00)
[2021-08-24 06:38] LABS: HEMATOCRIT 25.8 % (36.7-47.1); MEAN CORPUSCULAR HEMOGLOBIN 29.3 uug (23.8-33.4); MEAN CORPUSCULAR VOLUME 90.8 fL (73.0-96.2); PLATELET COUNT (AUTO) 151 K/uL (152-348)
--- NOTE | 2021-08-24 06:56 | NUR ---
Blood culture result came out .Dr Ramirez made aware.
[2021-08-24 07:40] LABS: MAGNESIUM 2.5 mg/dL (1.8-2.4); PHOSPHOROUS 5.5 mg/dL (2.5-4.9); POTASSIUM 4.4 mmol/L (3.5-5.1)
[2021-08-24 07:52] LABS: CREATININE 9.3 mg/dL (0.6-1.3)
[2021-08-24] MEDS ORDERED: CEFTAZIDIME 1 G in IV DEXTROSE 5% 50 ML IV ONE (08:00)
[2021-08-24] MEDS ORDERED: LIDOCAINE-MPF 1% 5 ML AMPUL MC PRN (08:45)
[2021-08-24] MEDS ORDERED: LIDOCAINE HCL 1% 20 ML VIAL MC PRN (08:45)
[2021-08-24] MEDS ORDERED: CEFTAZIDIME 1 G in IV DEXTROSE 5% 50 ML IV SCH (09:00)
--- NOTE | 2021-08-24 09:00 | NUR ---
Per Dr. Vargas patient to have permacath removed to day between [id number] and with order to prepared supplies. noted and carried out.
[2021-08-24] MEDS: NIFEdipine XL 60 MG TABSR PO SCH ×2 (09:02→20:39)
[2021-08-24] MEDS: SEVELAMER CARBONATE 800 MG TABLET PO SCH ×3 (09:02→17:12)
[2021-08-24] MEDS: LABETALOL HCL 200 MG TABLET PO SCH ×2 (09:03→17:13)
--- NOTE | 2021-08-24 10:21 | NUR ---
spoke with Kwasi at Dr. Vargas's office and left a message with Kwasi for a call back d/t patient stating he doesn't want to do a topical permacath removal and wishes to be taken to Or instead and put under. pending call back.
[2021-08-24 11:46] VITALS: BP 143/93
--- NOTE | 2021-08-24 14:44 | NUR ---
Called Dr. Vargas's office spoke with Traci, per Traci i will message the doctor. Re: patient not wanting to remove permacath at bedside and wanting the procedure to be done in OR instead.
--- NOTE | 2021-08-24 14:49 | NUR ---
dialysis complete, 2L fluid removed.
--- NOTE | 2021-08-24 15:11 | NUR ---
spoke with Dr. Vargas re: patient not wanting to remove permacath at bedside and wanting to be put under anesthesia for it. Per Dr. Vargas ok we wont do it today, it will be done within this week.
[2021-08-24 15:25] VITALS: BP 159/98
[2021-08-24] MEDS: GABAPENTIN 300 MG CAPSULE PO SCH (17:13)
[2021-08-24 20:50] VITALS: BP 170/97
[2021-08-25 04:25] VITALS: BP 137/81
--- NOTE | 2021-08-25 05:47 | NUR ---
Slept throughout the night. Denies pain or SOB. Able to make needs known. IV site intact. Will endorse to day shift.
[2021-08-25] MEDS: hydrALAZINE HCL 50 MG TABLET PO SCH ×3 (06:22→22:06)
[2021-08-25] MEDS: PANTOPRAZOLE SODIUM 40 MG TABLET.DR PO SCH (06:22)
[2021-08-25 07:05] LABS: HEMATOCRIT 25.4 % (36.7-47.1); MEAN CORPUSCULAR HEMOGLOBIN 29.5 uug (23.8-33.4); MEAN CORPUSCULAR VOLUME 89.9 fL (73.0-96.2); PLATELET COUNT (AUTO) 162 K/uL (152-348)
[2021-08-25 07:11] LABS: MAGNESIUM 2.4 mg/dL (1.8-2.4); PHOSPHOROUS 5.5 mg/dL (2.5-4.9); POTASSIUM 4.5 mmol/L (3.5-5.1)
[2021-08-25 07:36] LABS: CREATININE 7.7 mg/dL (0.6-1.3)
--- NOTE | 2021-08-25 08:00 | NUR ---
awake alert/oriented, denies of pain, left permacath intact with dsg, explained plan fo care- verbalized understanding, needs attended and met, call light within reach
[2021-08-25] MEDS: SEVELAMER CARBONATE 800 MG TABLET PO SCH ×3 (08:47→17:20)
[2021-08-25] MEDS: LABETALOL HCL 200 MG TABLET PO SCH ×2 (08:58→17:20)
[2021-08-25] MEDS: NIFEdipine XL 60 MG TABSR PO SCH ×2 (08:58→21:00)
[2021-08-25 11:37] VITALS: BP 110/68
[2021-08-25] MEDS: CEFAZOLIN 2 G in IV DEXTROSE 5% 100 ML IV SCH (12:13)
[2021-08-25] MEDS ORDERED: CEFAZOLIN IJ ONE (14:00)
[2021-08-25] MEDS ORDERED: HEPARIN 10 UNIT/ML IJ ONE (14:00)
[2021-08-25 16:02] VITALS: BP 141/84
[2021-08-25] MEDS: GABAPENTIN 300 MG CAPSULE PO SCH (17:20)
--- NOTE | 2021-08-25 18:16 | NUR ---
resting in bed, no distress noted, all needs attended and met, for removal of hemodialysis catheter and transesophageal echocardiogram in am- consented, Npo after midnight- pt aware
[2021-08-25 20:00] VITALS: BP 142/84
[2021-08-25] MEDS ORDERED: CEFTAZIDIME 1 G in IV DEXTROSE 5% 50 ML IV SCH (21:00)
[2021-08-26 04:00] VITALS: BP 154/91
--- NOTE | 2021-08-26 05:26 | NUR ---
Slept throughout the night. Denies pain or SOB. IV site disloged, new IV inserted, 20g in left forearm. NPO after midnight for surgery today. Pre-op checklist done. No urine sent for preop due to patient being anuric. Currently receiving dialysis. No other issues or concerns at this time.
[2021-08-26] MEDS: hydrALAZINE HCL 50 MG TABLET PO SCH ×3 (06:00→21:38)
[2021-08-26 06:57] LABS: HEMATOCRIT 23.4 % (36.7-47.1); MEAN CORPUSCULAR HEMOGLOBIN 29.6 uug (23.8-33.4); MEAN CORPUSCULAR VOLUME 89.1 fL (73.0-96.2); PLATELET COUNT (AUTO) 157 K/uL (152-348)
[2021-08-26] MEDS: PANTOPRAZOLE SODIUM 40 MG TABLET.DR PO SCH (07:00)
[2021-08-26 07:02] LABS: CREATININE 5.7 mg/dL (0.6-1.3); POTASSIUM 3.7 mmol/L (3.5-5.1)
--- NOTE | 2021-08-26 07:40 | NUR ---
DIALYSIS COMPLETED ORDERED AND 3000 ML REMOVED AND HE TOLERATED PROCEDURE WELL.
--- NOTE | 2021-08-26 07:45 | NUR ---
Morning meds not given due to patient getting dialysis
[2021-08-26] MEDS: SEVELAMER CARBONATE 800 MG TABLET PO SCH ×3 (08:00→17:13)
[2021-08-26] MEDS: CEFAZOLIN 2 G in IV DEXTROSE 5% 100 ML IV SCH (09:00)
[2021-08-26] MEDS: NIFEdipine XL 60 MG TABSR PO SCH ×2 (09:00→20:16)
[2021-08-26] MEDS: LABETALOL HCL 200 MG TABLET PO SCH ×2 (09:00→16:19)
[2021-08-26] MEDS ORDERED: LIDOCAINE HCL 2% 20 ML VIAL ONE (09:06)
[2021-08-26] MEDS ORDERED: CEFAZOLIN 1 G VIAL ONE (09:07)
[2021-08-26] MEDS ORDERED: NORMAL SALINE 10 ML VIAL ONE (09:07)
--- NOTE | 2021-08-26 09:15 | NUR ---
PATIENT PICKED UP BY BED TO SURGERY ORDERED REMAINED NPO STATUS AT THIS TIME.
[2021-08-26] MEDS ORDERED: FENTANYL CITRATE 100 MCG/2 ML AMPUL ONE (09:33)
--- NOTE | 2021-08-26 10:55 | NUR ---
PATIENT RETURNED FROM SURGERY AWAKE ALERT AND ORIENTED WITH A 2X2 GAUZE WITH TRANSPARENT DRESSING C/D/I DENIES PAIN OR DISCOMFORTS AT THIS TIME.PER REPORT THE PLAN IS FOR AV SHUNT TO BE PLACED ON HIS RIGHT ARM AND NEED VEIN MAPPING ALSO NO BLOOD DRAW OR BLOOD PRESSURE ON HIS ARM AND NOTED TOLERATED ORAL FLUIDS AND FULL LIQUIDS DIET CHANGED PER DR HASTINGS ORDER.
[2021-08-26 12:00] VITALS: BP 137/86
[2021-08-26] MEDS ORDERED: CEFAZOLIN IJ ONE (12:00)
[2021-08-26] MEDS ORDERED: HEPARIN 10 UNIT/ML IJ ONE (12:00)
[2021-08-26 16:04] VITALS: BP 177/97
--- NOTE | 2021-08-26 16:19 | NUR ---
BLOOD PRESSURE AT THIS TIME IS 177/97 ROUTINE TRANDATE GIVEN WILL OBSERVE.
[2021-08-26] MEDS: GABAPENTIN 300 MG CAPSULE PO SCH (17:13)
--- NOTE | 2021-08-26 18:35 | NUR ---
BLOOD PRESSURE RECHECKED AND ITS 173/98 WITH HR 71 PATIENT HAS NO PRN ORDER CALLED ASND NOTIFIED YAMILETH GLORIA CELLARS SUPERVISOR WITH NO NEW ORDERS AT THIS TIME. ALSO NOTIFIED HER OF PROCALCITONIN RESULTS OF 37.27 WI6TH NO NEW ORDERS.
[2021-08-26 20:00] VITALS: BP 173/99
--- NOTE | 2021-08-26 20:00 | NUR ---
Received patient lying in bed. AAOx4. In no acute distress. Denies any pain or SOB. Appears comfortable. IV site on left FA intact and patent. Needs assessed and attended to. Safety measure initiated and call nascimento within reached.
[2021-08-26 22:00] VITALS: BP 157/96
--- NOTE | 2021-08-26 22:58 | NUR ---
Informed HR GENERALIST Laxmi Ybarra Regarding patient having increase BP. Gave verbal order to give Hydralazine 10mg PO Q8H PRN for SBP greater than 160. Order noted and carried out.
[2021-08-26] MEDS ORDERED: hydrALAZINE HCL 10 MG TABLET PO PRN (23:00)
[2021-08-27 04:00] VITALS: BP 155/88
[2021-08-27] MEDS: PANTOPRAZOLE SODIUM 40 MG TABLET.DR PO SCH (06:11)
[2021-08-27] MEDS: hydrALAZINE HCL 50 MG TABLET PO SCH ×3 (06:11→21:21)
--- NOTE | 2021-08-27 06:15 | NUR ---
AAOX4. In no apparent distress. Denies any pain or SOB. IV site on left FA intact and patent. Needs attended to and met. Safety measure maintained and call nascimento within reached.
[2021-08-27] MEDS: LABETALOL HCL 200 MG TABLET PO SCH ×2 (08:17→17:30)
[2021-08-27] MEDS: NIFEdipine XL 60 MG TABSR PO SCH ×2 (08:17→20:12)
[2021-08-27] MEDS: SEVELAMER CARBONATE 800 MG TABLET PO SCH ×3 (08:17→17:29)
[2021-08-27 08:27] LABS: HEMATOCRIT 26.1 % (36.7-47.1); PLATELET COUNT (AUTO) 175 K/uL (152-348)
[2021-08-27 08:36] LABS: POTASSIUM 5.6 mmol/L (3.5-5.1)
[2021-08-27] MEDS: CEFAZOLIN 2 G in IV DEXTROSE 5% 100 ML IV SCH (08:43)
--- NOTE | 2021-08-27 09:00 | NUR ---
RECEIVED IN BED AWAKE ALERT AND ORIENTED DENIES DISCOMFORTS REMAIN ON ATB ORDERED WITH NO ADVERSE OR ALLERGIC REACTIONS AT THIS TIME.LEFT UPPER CHEST S/P PERMA CATH REMOVAL WITH DRY DRESSING WITH NO S/S OF DRAINAGE AT THIS TIME CALL LIGHTS AND PERSONAL BELONGINGS ARE WITHIN EASY REACH WILL CONTINUE TO OBSERVE.
[2021-08-27 09:05] LABS: CREATININE 8.7 mg/dL (0.6-1.3)
--- NOTE | 2021-08-27 11:00 | NUR ---
VEIN MAPPING COMPLETED BY THE WARD ATTENDANT ORDERED.
[2021-08-27 12:00] VITALS: BP 164/99
[2021-08-27] MEDS: GABAPENTIN 300 MG CAPSULE PO SCH (17:29)
--- NOTE | 2021-08-27 18:00 | NUR ---
CURRENT BLOOD PRESSURE IS 148/88 ALL DUE MEDICATIONS GIVEN NOT IN DISTRESS AT THIS TIME.
--- NOTE | 2021-08-27 19:54 | NUR ---
Received patient lying in bed. AAOx4. In no acute distress. Denies any pain or SOB. IV site on left FA intact and patent. Needs assessed and attended to. Safety measure initiated and call nascimento within reached.
[2021-08-27 20:00] VITALS: BP 130/70
[2021-08-28 04:00] VITALS: BP 134/77
[2021-08-28] MEDS: PANTOPRAZOLE SODIUM 40 MG TABLET.DR PO SCH (06:14)
[2021-08-28] MEDS: hydrALAZINE HCL 50 MG TABLET PO SCH ×3 (06:15→21:11)
--- NOTE | 2021-08-28 06:47 | NUR ---
Patient slept well last night. Remains AAOX4. In no acute distress. No complain of pain or SOB. IV site on left FA remains intact and patent. Needs attended to and met. Safety measure maintained and call nascimento within reached.
[2021-08-28 07:09] LABS: HEMATOCRIT 23.3 % (36.7-47.1); MEAN CORPUSCULAR HEMOGLOBIN 29.9 uug (23.8-33.4); MEAN CORPUSCULAR VOLUME 89.6 fL (73.0-96.2); PLATELET COUNT (AUTO) 153 K/uL (152-348)
[2021-08-28 07:15] LABS: POTASSIUM 5.8 mmol/L (3.5-5.1)
[2021-08-28 07:25] LABS: CREATININE 10.9 mg/dL (0.6-1.3)
[2021-08-28] MEDS: SEVELAMER CARBONATE 800 MG TABLET PO SCH ×3 (08:03→17:07)
[2021-08-28] MEDS: NIFEdipine XL 60 MG TABSR PO SCH ×2 (08:03→20:02)
[2021-08-28] MEDS: LABETALOL HCL 200 MG TABLET PO SCH ×2 (08:03→15:32)
[2021-08-28] MEDS: CEFAZOLIN 2 G in IV DEXTROSE 5% 100 ML IV SCH (09:16)
[2021-08-28 12:00] VITALS: BP 145/98
[2021-08-28] MEDS: CLOBETASOL PROPIONATE 0.05% CREAM 15 GM TUBE TOP SCH ×2 (14:51→17:28)
[2021-08-28 15:33] VITALS: BP 189/115
[2021-08-28] MEDS ORDERED: LORAZEPAM 1 MG TABLET PO PRN (16:45)
[2021-08-28 16:47] VITALS: BP 191/128
--- NOTE | 2021-08-28 16:47 | NUR ---
pt bp is 191/128 md made aware new orders received noted and carried out.
[2021-08-28] MEDS ORDERED: hydrALAZINE HCL 20 MG/1 ML VIAL IV PRN (17:00)
[2021-08-28] MEDS: GABAPENTIN 300 MG CAPSULE PO SCH (17:08)
[2021-08-28] MEDS ORDERED: NEOMY/BACITRAC/POLYMI OINT 28.35 GM TUBE TOP PRN (19:00)
[2021-08-28] MEDS ORDERED: SODIUM POLYSTYRENE SULFONATE 15 G/60 ML LIQUID UDC PO ONE (19:00)
--- NOTE | 2021-08-28 19:30 | NUR ---
Received patient lying in bed. AAOx4. In no apparent distress. Denies any pain or SOB although O2 sat fluctuating from 88-90% on RA. Applied O2 at 2LPM via NC. O2 went up to 92%. Not in respiratory distress. IV site on left FA intact and patent. BP at 194/102. BAND SAW OPERATOR CAKE CUTTING Cierra Ybarra made aware and order to put back Hydralazine 100mg PO every 8 hrs as previously ordered. Order noted and will carry out. Needs assessed and attended to. Safety measure initiated and call nascimento within reached.
[2021-08-28 20:48] VITALS: BP 194/102
--- NOTE | 2021-08-28 22:55 | NUR ---
Patient complaining of frequent non-productive cough. OPTICAL ENGINEERING MANAGER Laxmi Ybarra made aware and order Guaifenesin. Order noted and will carry out.
[2021-08-28] MEDS ORDERED: GUAIFENESIN/DEXTROMETHORPHAN 5 ML UDC PO PRN (23:00)
--- NOTE | 2021-08-28 23:12 | NUR ---
Patient getting a femoral dialysis catheter insertion at this time. Patient requesting PRN morphine after the procedure is over. DETENTION DEPUTY Keh. Hair made aware and obtain order for Morphine 2mg IV x1 for pain. Order noted and will carry out.
[2021-08-28] MEDS ORDERED: MORPHINE SULFATE 2 MG/1 ML DISP.SYRIN IV ONE (23:30)
[2021-08-29] MEDS: ACETAMINOPHEN 325 MG TABLET PO PRN (03:33)
[2021-08-29 04:00] VITALS: BP 153/97
[2021-08-29] MEDS: hydrALAZINE HCL 50 MG TABLET PO SCH ×3 (05:51→22:21)
[2021-08-29] MEDS: PANTOPRAZOLE SODIUM 40 MG TABLET.DR PO SCH (06:00)
--- NOTE | 2021-08-29 06:10 | NUR ---
Patient asleep at this time. Denies any SOB. Afebrile at this time. Cooling measure was provided for temp of 100.7. Latest temp 98.8 orally. On O2 at 2LPM via NC in place. O2 sat at 94% No further complain of cough. Was given cough medication x1 and effective. IV site on left FA intact and patent. Dialysis catheter on femoral area with [address] Patient to have dialysis this AM. Needs attended to and met. Safety measure maintained and call nascimento within reached.
[2021-08-29] MEDS: SEVELAMER CARBONATE 800 MG TABLET PO SCH ×3 (08:06→17:01)
[2021-08-29] MEDS: LABETALOL HCL 200 MG TABLET PO SCH ×2 (08:06→16:20)
[2021-08-29 08:08] LABS: HEMATOCRIT 22.5 % (36.7-47.1); MEAN CORPUSCULAR HEMOGLOBIN 30.2 uug (23.8-33.4); MEAN CORPUSCULAR VOLUME 89.7 fL (73.0-96.2); PLATELET COUNT (AUTO) 159 K/uL (152-348)
[2021-08-29 08:24] LABS: POTASSIUM 6.1 mmol/L (3.5-5.1)
[2021-08-29 08:41] LABS: CREATININE 12.6 mg/dL (0.6-1.3)
[2021-08-29] MEDS: CEFAZOLIN 2 G in IV DEXTROSE 5% 100 ML IV SCH (09:13)
[2021-08-29] MEDS: CLOBETASOL PROPIONATE 0.05% CREAM 15 GM TUBE TOP SCH ×2 (09:14→16:20)
[2021-08-29] MEDS: NIFEdipine XL 60 MG TABSR PO SCH ×2 (10:08→22:21)
[2021-08-29 12:30] VITALS: BP 136/88
[2021-08-29 15:05] VITALS: BP 136/88
[2021-08-29] MEDS: GABAPENTIN 300 MG CAPSULE PO SCH (17:01)
[2021-08-29 20:00] VITALS: BP 146/88
--- NOTE | 2021-08-29 20:00 | NUR ---
AWAKE ALERT X4 , IN NO ACUTE DISTRESS, NO COMPLAINTS MADE.
[2021-08-30] MEDS: hydrALAZINE HCL 50 MG TABLET PO SCH ×3 (05:58→22:01)
[2021-08-30] MEDS: PANTOPRAZOLE SODIUM 40 MG TABLET.DR PO SCH (06:01)
--- NOTE | 2021-08-30 06:17 | NUR ---
SLEPT AT INTERVALS,NO COMPLAINTS MADE
[2021-08-30] MEDS: SEVELAMER CARBONATE 800 MG TABLET PO SCH ×3 (08:03→17:03)
[2021-08-30] MEDS: LABETALOL HCL 200 MG TABLET PO SCH ×2 (08:03→16:03)
[2021-08-30] MEDS: NIFEdipine XL 60 MG TABSR PO SCH ×2 (08:03→22:01)
[2021-08-30 08:06] LABS: HEMATOCRIT 22.7 % (36.7-47.1); MEAN CORPUSCULAR HEMOGLOBIN 29.8 uug (23.8-33.4); MEAN CORPUSCULAR VOLUME 89.2 fL (73.0-96.2); PLATELET COUNT (AUTO) 170 K/uL (152-348)
[2021-08-30 08:29] LABS: POTASSIUM 5.1 mmol/L (3.5-5.1)
[2021-08-30] MEDS: CEFAZOLIN 2 G in IV DEXTROSE 5% 100 ML IV SCH (09:15)
--- NOTE | 2021-08-30 10:40 | NUR ---
Dialysis Notes Spoke to Pa Briggs REAL ESTATE DEVELOPMENT MANAGER cancel dialysis today K 5.1 and do pt in am. Lauren GOMEZ made aware.
[2021-08-30] MEDS: CLOBETASOL PROPIONATE 0.05% CREAM 15 GM TUBE TOP SCH ×2 (11:17→16:04)
[2021-08-30 12:17] VITALS: BP 143/83
[2021-08-30 15:19] VITALS: BP 133/78
[2021-08-30] MEDS: GABAPENTIN 300 MG CAPSULE PO SCH (17:03)
--- NOTE | 2021-08-30 20:00 | NUR ---
pt is in no acute distress. Call light is within reach.
[2021-08-30 20:52] VITALS: BP 155/86
[2021-08-31 04:51] VITALS: BP 146/79
[2021-08-31] MEDS: hydrALAZINE HCL 50 MG TABLET PO SCH ×3 (06:00→21:16)
[2021-08-31] MEDS: PANTOPRAZOLE SODIUM 40 MG TABLET.DR PO SCH (06:03)
[2021-08-31 06:44] LABS: HEMATOCRIT 22.6 % (36.7-47.1); MEAN CORPUSCULAR HEMOGLOBIN 29.5 uug (23.8-33.4); MEAN CORPUSCULAR VOLUME 88.6 fL (73.0-96.2); PLATELET COUNT (AUTO) 170 K/uL (152-348)
[2021-08-31 07:14] LABS: POTASSIUM 5.3 mmol/L (3.5-5.1)
[2021-08-31 09:04] LABS: CREATININE 12.7 mg/dL (0.6-1.3)
[2021-08-31] MEDS: SEVELAMER CARBONATE 800 MG TABLET PO SCH ×3 (10:47→17:37)
[2021-08-31] MEDS: LABETALOL HCL 200 MG TABLET PO SCH ×2 (10:48→17:00)
[2021-08-31] MEDS: NIFEdipine XL 60 MG TABSR PO SCH ×2 (10:50→20:53)
[2021-08-31] MEDS: CLOBETASOL PROPIONATE 0.05% CREAM 15 GM TUBE TOP SCH ×2 (10:53→17:44)
[2021-08-31] MEDS: CEFAZOLIN 2 G in IV DEXTROSE 5% 100 ML IV SCH (10:54)
[2021-08-31 12:00] VITALS: BP 169/89
[2021-08-31 16:00] VITALS: BP 115/66
--- NOTE | 2021-08-31 16:05 | NUR ---
CALL RECEIVED FROM DR OLIVER WITH ORDERS FOR AV SHUNT PROCEDURE ON TUESDAY WILL OBTAIN CONSCENT.
[2021-08-31] MEDS ORDERED: EPOETIN ALFA 10,000 UNITS/ML VIAL IVP ONE (16:45)
[2021-08-31] MEDS ORDERED: EPOETIN ALFA-EPBX 10,000 UNIT/ML VIAL IV ONE (17:00)
[2021-08-31] MEDS: GABAPENTIN 300 MG CAPSULE PO SCH (17:36)
--- NOTE | 2021-08-31 18:30 | NUR ---
CONSCENT OBTAINED AND DOCUMENTED.
[2021-08-31 20:31] VITALS: BP 151/89
[2021-09-01 04:22] VITALS: BP 130/80
[2021-09-01] MEDS: hydrALAZINE HCL 50 MG TABLET PO SCH ×3 (06:04→21:26)
[2021-09-01] MEDS: PANTOPRAZOLE SODIUM 40 MG TABLET.DR PO SCH (06:04)
[2021-09-01 06:31] LABS: HEMATOCRIT 22.6 % (36.7-47.1); MEAN CORPUSCULAR HEMOGLOBIN 29.7 uug (23.8-33.4); MEAN CORPUSCULAR VOLUME 88.8 fL (73.0-96.2)
[2021-09-01 06:32] LABS: PLATELET COUNT (AUTO) 183 K/uL (152-348)
[2021-09-01 06:48] LABS: POTASSIUM 4.9 mmol/L (3.5-5.1)
[2021-09-01 06:51] LABS: CREATININE 9.4 mg/dL (0.6-1.3)
[2021-09-01] MEDS: NIFEdipine XL 60 MG TABSR PO SCH ×2 (09:20→20:01)
[2021-09-01] MEDS: SEVELAMER CARBONATE 800 MG TABLET PO SCH ×3 (09:20→17:13)
[2021-09-01] MEDS: LABETALOL HCL 200 MG TABLET PO SCH ×2 (09:21→17:13)
[2021-09-01] MEDS: CLOBETASOL PROPIONATE 0.05% CREAM 15 GM TUBE TOP SCH ×2 (09:23→17:25)
[2021-09-01] MEDS: CEFAZOLIN 1 G in IV DEXTROSE 5% 50 ML IV SCH (11:32)
[2021-09-01 12:00] VITALS: BP 156/99
[2021-09-01 16:00] VITALS: BP 186/110
[2021-09-01] MEDS: GABAPENTIN 300 MG CAPSULE PO SCH (17:13)
--- NOTE | 2021-09-01 18:00 | NUR ---
RESTING IN BED DUE MEDICATIONS WERE GIVEN DENIES DISCOMFORTS PRE OP TEACHING IN PROGRESS CALL LIGHTS AND PERSONAQL BELONGINGS ARE WITHIN EASY REACH MADE COMFORTABLE WILL CONTINUE TO OBSERVE.
--- NOTE | 2021-09-01 19:56 | NUR ---
Received patient lying in bed. AOX4. No acute distress noted at this time. Advised patient he'll be on NPO at midnight, patient verbalized understanding. IV on left forearm, intact and patent. Safety and comfort measures initiated. Call light and bedside table within reach. Will continue to monitor.
--- NOTE | 2021-09-01 20:00 | NUR ---
BP taken, showing results of 188/109mmhg, Nifedipine XL 60mg tablet SR, 1 tablet, PO Q12HR, given. Temperature taken, showing elevated temperature of 99, Acetaminophen 325mg tablet, 2 tablets, PO Q6HR was given and tolerated well. Will continue to monitor.
[2021-09-01] MEDS: ACETAMINOPHEN 325 MG TABLET PO PRN (20:01)
[2021-09-01 20:40] VITALS: BP 188/109
[2021-09-02 04:21] VITALS: BP 162/90
[2021-09-02] MEDS: hydrALAZINE HCL 50 MG TABLET PO SCH ×3 (05:30→22:57)
[2021-09-02] MEDS: PANTOPRAZOLE SODIUM 40 MG TABLET.DR PO SCH (06:01)
--- NOTE | 2021-09-02 06:35 | NUR ---
Patient slept intermittently through the night. No acute distress noted. Maintained on NPO with the exception of due medications. Safety and comfort measures maintained. Will endorse to incoming nurse.
[2021-09-02 06:53] LABS: HEMATOCRIT 23.2 % (36.7-47.1); MEAN CORPUSCULAR HEMOGLOBIN 30.4 uug (23.8-33.4); MEAN CORPUSCULAR VOLUME 89.1 fL (73.0-96.2); PLATELET COUNT (AUTO) 190 K/uL (152-348)
[2021-09-02 07:13] LABS: PHOSPHOROUS 5.9 mg/dL (2.5-4.9); POTASSIUM 5.4 mmol/L (3.5-5.1)
[2021-09-02 07:23] LABS: CREATININE 11.6 mg/dL (0.6-1.3)
--- NOTE | 2021-09-02 07:30 | NUR ---
RECEIVED PATIENT IN BED AWAKE ALERT AND ORIENTED DENIES PAIN OR DISCOMFORTS AT THIS TIME PRE OP TEACHING IN PROGRESS AT THIS TIME PATIENT REINSTRUCTED TO MAINTAIN NOTHING BY MOUTH ORDERED FOR HIS SURGERY TODAY AND HE EXPRESSED UNDERSTANDING CALL LIGHTS AND PERSONAL BELONGINGS ARE WITHIN EASY REACH WILL CONTINUE TO OBSERVE.
[2021-09-02] MEDS: SEVELAMER CARBONATE 800 MG TABLET PO SCH ×3 (08:00→17:27)
[2021-09-02] MEDS: NIFEdipine XL 60 MG TABSR PO SCH ×2 (09:00→20:50)
[2021-09-02] MEDS: NEPRO (VANILLA) 237 ML CAN PO SCH (09:00)
[2021-09-02] MEDS: LABETALOL HCL 200 MG TABLET PO SCH ×2 (09:00→17:26)
[2021-09-02] MEDS: CLOBETASOL PROPIONATE 0.05% CREAM 15 GM TUBE TOP SCH ×2 (09:34→17:45)
--- NOTE | 2021-09-02 11:40 | NUR ---
PATIENT SUPPOSED TO HAVE SURGERY TODAY AT [address] OLIVER BUT SURGERY NOT HERE YET TO SENIOR MEDIA PLANNER PATIENT CALLED AND SPOKE WITH SHELLEY AT THE RECOVERY AND SHE STATED THAT PATIENT IS SCHEDULED FROR [address] OLIVER IS NOT HERE YET PATIENT NOTIFIED.
[2021-09-02 12:00] VITALS: BP 134/77
[2021-09-02] MEDS: CEFAZOLIN 1 G in IV DEXTROSE 5% 50 ML IV SCH (12:24)
[2021-09-02] MEDS ORDERED: POLYMYXIN B SULFATE 500,000 UNITS VIAL ONE (14:07)
[2021-09-02] MEDS ORDERED: LIDOCAINE HCL 1% 20 ML VIAL ONE (14:08)
[2021-09-02] MEDS ORDERED: HEPARIN/NS 500 ML ONE (14:08)
[2021-09-02] MEDS ORDERED: THROMBIN (BOVINE) 5,000 UNITS VIAL ONE (14:09)
[2021-09-02] MEDS ORDERED: IOPAMIDOL 15 ML VIAL IT ONE (14:13)
[2021-09-02] MEDS ORDERED: HEPARIN SODIUM,PORCINE 1,000 UNITS/ML VIAL ONE (14:13)
--- NOTE | 2021-09-02 14:30 | NUR ---
PATIENT PICKED UP BY BED TO OR FOR SURGERY ORDERED
[2021-09-02] MEDS ORDERED: FENTANYL CITRATE 100 MCG/2 ML AMPUL ONE (14:53)
[2021-09-02] MEDS ORDERED: GABA300C PO (15:27)
[2021-09-02] MEDS ORDERED: LABETALOL HCL 100 MG/20 ML VIAL ONE (16:11)
[2021-09-02 17:00] VITALS: BP 168/100
--- NOTE | 2021-09-02 17:00 | NUR ---
PATIENT RETURNED BY BED FROM PACU AWAKE ALERT AND ORIENTED WITH RIGHT UPPER CHEST PERMA CATH WITH DRESSING INTACT WITH NO S/S OF BLEEDING AT THIS TIME MUSIC STORE MANAGER HERE AND STARTED DIALYSIS RIGHT GROIN FEMORAL CATH WAS REMOVED IN OR WITH DRESSING DRY AND INTACT WITH WITH PRESSURE IN PROGRESS ORDERED.
[2021-09-02] MEDS: GABAPENTIN 300 MG CAPSULE PO SCH (17:26)
[2021-09-02] MEDS: ACETAMINOPHEN 325 MG TABLET PO PRN (17:26)
--- NOTE | 2021-09-02 18:00 | NUR ---
PRESSURE DRESSING REMOVED AT THIS TIME NO BLEEDING NOTED PATIENT REMAINS ON DIALYSIS AT THIS TIME WILL CONTINUE TO OBSERVE.
[2021-09-02] MEDS ORDERED: MORPHINE SULFATE 4 MG/1 ML DISP.SYRIN IV STA (18:02)
--- NOTE | 2021-09-02 18:04 | NUR ---
PATIENT MEDICATED WITH MORPHINE ORDERED DIALYSIS IS IN PROGRESS ORDERED AT THIS TIME.
--- NOTE | 2021-09-02 19:45 | NUR ---
Received patient in bed .Dialysis completed with 3L removed. Patient c/o pain on Rt upper chest wall.S/p permacath placement. Dressing intact clean and dry.No active bleeding. Patient refused to be discharged today. Nestor Broussard notified. Ok to d/c tomorrow and received new order noted and carried out.
[2021-09-02 20:00] VITALS: BP_SYST 164; BP_SYST 179; BP_DIAS 95; BP_DIAS 98
[2021-09-02] MEDS ORDERED: HYDROMORPHONE 1 MG/1 ML DISP.SYRIN IV ONE (21:00)
[2021-09-02] MEDS ORDERED: HYDROCODONE/APAP 5-325MG TABLET PO PRN (23:30)
[2021-09-03 04:00] VITALS: BP 163/91
[2021-09-03] MEDS: PANTOPRAZOLE SODIUM 40 MG TABLET.DR PO SCH (06:08)
[2021-09-03] MEDS: hydrALAZINE HCL 50 MG TABLET PO SCH ×2 (06:09→13:13)
--- NOTE | 2021-09-03 07:30 | NUR ---
received patient laying in bed awake in no apparent distress. patient is s/p permacath replacement to right chest. patient c/o pain to site, patient requesting pain medication. patient is alert and oriented x4 able to make needs known. iv site to left f/a in place and patent. v/s wnl, reminded to use call light for help. side rails up x2, will monitor.
[2021-09-03] MEDS: SEVELAMER CARBONATE 800 MG TABLET PO SCH ×2 (09:00→12:42)
[2021-09-03] MEDS: NIFEdipine XL 60 MG TABSR PO SCH (09:05)
[2021-09-03] MEDS: LABETALOL HCL 200 MG TABLET PO SCH (09:05)
[2021-09-03] MEDS: NEPRO (VANILLA) 237 ML CAN PO SCH (09:06)
[2021-09-03] MEDS: CLOBETASOL PROPIONATE 0.05% CREAM 15 GM TUBE TOP SCH (09:06)
[2021-09-03] MEDS ORDERED: TRAM50TA2 PO (09:27)
[2021-09-03 11:06] VITALS: BP 140/90
[2021-09-03] MEDS: CEFAZOLIN 1 G in IV DEXTROSE 5% 50 ML IV SCH (12:42)
--- NOTE | 2021-09-03 15:00 | NUR ---
discharge instructions reviewed with patient, reminded patient to continue with current medication and instructions given on new medications tramadol and gabapentin. patient expressed understanding. belonging inventory completed, all personal belongings accounted for. All paperwork signed. Per patient aunt will pick him up at 1600. Reminded patient to return to primary physician in 1 week for a f/u, reminded to [facility] or call 911 for worsening symptoms.
[2021-09-03 15:36] VITALS: BP 128/74
--- NOTE | 2021-09-03 16:00 | NUR ---
IV site removed minimal bleeding noted. patient assisted downstairs with family. patient upon discharge with v/s wnl. stable gait, able to ambulate without difficulty.
[2021-09-03] MEDS ORDERED: HEPARIN SODIUM,PORCINE 1,000 UNITS/ML VIAL IV ONE (16:09)
[2021-09-03] MEDS ORDERED: ONDANSETRON 4 MG/2 ML VIAL IV ONE (16:09)
[2021-09-03] MEDS ORDERED: CEFAZOLIN 1 G VIAL IM ONE (16:09)
[2021-09-03] MEDS ORDERED: LIDOCAINE-MPF 2% 5 ML VIAL IJ ONE (16:09)
[2021-09-03] MEDS ORDERED: PROPOFOL 200 MG/20 ML BOTTLE IV ONE (16:09)
== END 2021-09-03 16:10 | disposition home or self-care (01) | DRG 721 ==
LOC: ER 20:03 → TELE3 08-22 01:50 → MEDSURG3 08-22 02:15
PROVIDERS: ADMIT Family Medicine; ATTEND Nurse Practitioner Acute Care
PROC: 5A1D70Z Performance of Urinary Filtration, Intermittent, Less than 6 Hours Per Day (ICD-10-PCS; 2021-08-23)
PROC: 05PYX3Z Removal of Infusion Device from Upper Vein, External Approach (ICD-10-PCS; principal; 2021-08-26)
PROC: B244ZZ4 Ultrasonography of Right Heart, Transesophageal (ICD-10-PCS; principal; 2021-08-26)
PROC: 04HK33Z Insertion of Infusion Device into Right Femoral Artery, Percutaneous Approach (ICD-10-PCS; 2021-08-28)
PROC: 02HV33Z Insertion of Infusion Device into Superior Vena Cava, Percutaneous Approach (ICD-10-PCS; 2021-09-02)
PROC: B518ZZA Fluoroscopy of Superior Vena Cava, Guidance (ICD-10-PCS; 2021-09-02)
DX: T80.211A Bloodstream infection due to central venous catheter, initial encounter (principal); A41.01 Sepsis due to Methicillin susceptible Staphylococcus aureus; I21.A1 Myocardial infarction type 2; I50.33 Acute on chronic diastolic (congestive) heart failure; N18.6 End stage renal disease; D63.1 Anemia in chronic kidney disease; I13.2 Hypertensive heart and chronic kidney disease with heart failure and with stage 5 chronic kidney disease, or end stage renal disease; I16.1 Hypertensive emergency; I16.9 Hypertensive crisis, unspecified; Z99.2 Dependence on renal dialysis; I25.2 Old myocardial infarction; R73.03 Prediabetes; Z20.822 Contact with and (suspected) exposure to COVID-19; I25.10 Atherosclerotic heart disease of native coronary artery without angina pectoris; Z91.19 Patient's noncompliance with other medical treatment and regimen
CPT/HCPCS: 36415; 70030-TC; 71045; 83605; 83735; 84100; 85025; 85730; 87040; 87077; 87806; 90937; 93005; 93307; 93312; A4217; A4649; A4663; G0378; J0360; J0690; J0713; J0885; J1170; J1580; J1644; J2270; J2405; J3010; J3490; J7030; J7040; J7050; J7060; Q9967

== ENCOUNTER 2022-04-05 02:49 | Emergency (ER) | payer MEDICAID, OTHER ==
[~2022-04-05] VITALS: Ht 167.6 cm; Wt 68.0 kg
[~2022-04-05 02:49] MED LIST changes: +GABA300C PO; -ISOS20TA8 PO; +TRAM50TA2 PO
--- NOTE | 2022-04-05 03:43 | NUR ---
pt c/o lower leg pain x 3 months.
--- NOTE | 2022-04-05 03:52 | NUR ---
Dr. Gaines in room for JOHN.
[2022-04-05] MEDS ORDERED: CLONIDINE HCL 0.2 MG TABLET PO ONE (04:00)
[2022-04-05] MEDS ORDERED: CLONIDINE HCL 0.2 MG TABLET ONE (04:02)
[2022-04-05] MEDS ORDERED: OXYC-128 PO (04:29)
[2022-04-05] MEDS ORDERED: SILV50CR32 TP (04:29)
[2022-04-05] MEDS ORDERED: ERYT400T83 PO (04:29)
--- NOTE | 2022-04-05 04:57 | NUR ---
Patient discharged to home in stable condition. Written and verbal after care instructions given. Patient verbalizes understanding of instructions. Stressed follow up or return to ER for worsening s/s.
[2022-04-05 04:58] VITALS: BP 156/93
== END 2022-04-05 04:58 | disposition home or self-care (01) ==
LOC: ER 02:52
DX: L03.119 Cellulitis of unspecified part of limb (principal); I12.0 Hypertensive chronic kidney disease with stage 5 chronic kidney disease or end stage renal disease; N18.6 End stage renal disease; Z99.2 Dependence on renal dialysis; Z79.899 Other long term (current) drug therapy; I25.2 Old myocardial infarction; I25.10 Atherosclerotic heart disease of native coronary artery without angina pectoris; R21 Rash and other nonspecific skin eruption; R60.9 Edema, unspecified; E78.5 Hyperlipidemia, unspecified; Z86.14 Personal history of Methicillin resistant Staphylococcus aureus infection
CPT/HCPCS: A4663

== ENCOUNTER 2023-06-09 18:56 | Inpatient (IN) | payer OTHER ==
[~2023-06-09] VITALS: Ht 170.2 cm; Wt 63.5 kg
[~2023-06-09 18:56] MED LIST changes: +ERYT400T83 PO; +OXYC-128 PO; +SILV50CR32 TP
[2023-06-09] MEDS ORDERED: ASPIRIN 81 MG TAB.CHEW PO ONE (19:15)
[2023-06-09] MEDS ORDERED: NITROGLYCERIN OINT 1 GM PACKET TP ONE ×2 (19:15→19:58)
[2023-06-09] MEDS ORDERED: HYDROMORPHONE 1 MG/1 ML DISP.SYRIN IV ONE (19:15)
[2023-06-09] MEDS ORDERED: ACETAMINOPHEN ES 500 MG TABLET PO ONE (19:15)
[2023-06-09] MEDS ORDERED: ONDANSETRON 4 MG/2 ML VIAL IV ONE (19:15)
[2023-06-09 19:51] LABS: CARBON DIOXIDE 30 mmol/L (21-32); CHLORIDE 94 mmol/L (98-107); GLUCOSE 150 mg/dL (74-106); POTASSIUM 3.9 mmol/L (3.5-5.1); SODIUM SERUM 133 mmol/L (136-145); UREA NITROGEN, BLOOD 37 mg/dL (7-18)
[2023-06-09 19:54] LABS: BASOPHILS % (AUTO) 0.4 % (0.0-2.0); DIFFERENTIAL COMMENT 0; EOSINOPHILS % (AUTO) 0.1 % (0.0-7.0); HEMATOCRIT 32.7 % (36.7-47.1); LYMPHOCYTES # (AUTO) 0.7 K/uL (0.8-4.8); LYMPHOCYTES % (AUTO) 6.1 % (20.5-51.5); MEAN CORPUSCULAR HEMOGLOBIN 31.9 uug (23.8-33.4); MEAN CORPUSCULAR HGB CONC 34 g/dL (32.5-36.3); MEAN CORPUSCULAR VOLUME 94.8 fL (73.0-96.2); MONOCYTES # (AUTO) 0.9 K/uL (0.1-1.30); MONOCYTES % (AUTO) 7.8 % (0.0-11.0); NEUTROPHILS # (AUTO) 9.5 K/uL (1.8-8.9); NEUTROPHILS % (AUTO) 85.6 % (38.5-71.5); PLATELET COUNT (AUTO) 63 K/uL (152-348); RED BLOOD CELL COUNT(AUTO) 3.45 MIL/uL (4.06-5.63); RED CELL DISTRIBUTION WIDTH 16.1 % (12.1-16.2); WHITE BLOOD COUNT (AUTO) 11.1 K/uL (3.6-10.2)
[2023-06-09] MEDS ORDERED: ONDANSETRON 4 MG/2 ML VIAL ONE (19:57)
[2023-06-09] MEDS ORDERED: ASPIRIN 81 MG TAB.CHEW ONE (19:57)
[2023-06-09 19:58] LABS: PHOSPHOROUS 3.1 mg/dL (2.5-4.9)
[2023-06-09] MEDS ORDERED: ACETAMINOPHEN ES 500 MG TABLET ONE (19:58)
[2023-06-09] MEDS ORDERED: HYDROMORPHONE 1 MG/1 ML DISP.SYRIN ONE (19:58)
[2023-06-09 20:03] LABS: CREATININE 8.3 mg/dL (0.6-1.3)
[2023-06-09 20:07] LABS: ALANINE AMINOTRANSFERASE 23 U/L (16-63); ALBUMIN 2.5 g/dL (3.4-5.0); ALKALINE PHOSPHATASE 151 U/L (50-136); ASPARTATE AMINOTRANSFERASE 11 U/L (15-37); BILIRUBIN,DIRECT 0.2 mg/dL (0.0-0.2); BILIRUBIN,TOTAL 0.7 mg/dL (0.2-1.0); TOTAL PROTEIN, SERUM 7.3 g/dL (6.4-8.2)
[2023-06-09] MEDS ORDERED: ENOXAPARIN SODIUM 80 MG/0.8 ML DISP.SYRIN SQ ONE ×2 (20:15→20:31)
[2023-06-09 21:01] LABS: ANISOCYTOSIS 1+; LYMPHOCYTES % (MANUAL) 7 % (20-40); MONOCYTES % (MANUAL) 8 % (2-10); NEUTROPHILS % (MANUAL) 85 % (42-75); PLATELET ESTIMATE MARKED DECREASED
[2023-06-09 23:08] LABS: NT-PRO BNP 274571 pg/mL (0-125)
[2023-06-10] VITALS (7 sets, daily range): BP systolic 99–138; BP diastolic 55–70; TEMP 98–99.8; O2SAT 95–98
[2023-06-10] MEDS ORDERED: ONDANSETRON 4 MG/2 ML VIAL IV PRN (00:30)
[2023-06-10] MEDS ORDERED: ACETAMINOPHEN 325 MG TABLET PO PRN (00:30)
[2023-06-10] MEDS ORDERED: ALBUTEROL SULFATE 8 GM HFA.AER.AD IH PRN (00:30)
[2023-06-10] MEDS ORDERED: INSULIN REGULAR, HUMAN 300 UNIT/3 ML VIAL SQ PRN (00:45)
[2023-06-10] MEDS ORDERED: DEXTROSE 50% 50 ML DISP.SYRIN IV PRN (00:45)
[2023-06-10] MEDS ORDERED: CEFTRIAXONE /D5W 50ML IVPB **ER PYXIS IV ONE (01:38)
[2023-06-10] MEDS ORDERED: AZITHROMYCIN 500MG/ D5W 250ML IVPB **ER PYXIS ONLY IV ONE (01:38)
[2023-06-10] MEDS: DEXAMETHASONE SOD PHOSPHATE 4 MG INJ IV SCH ×2 (02:00→09:01)
[2023-06-10] MEDS: APIXABAN 5 MG TABLET PO SCH ×3 (02:16→21:14)
[2023-06-10] MEDS: CEFTRIAXONE 1 G in IV DEXTROSE 5% 50 ML IV SCH (02:17)
[2023-06-10] MEDS: AZITHROMYCIN IV 500 MG in IV DEXTROSE 5% 250 ML IV SCH (02:44)
[2023-06-10] MEDS: PANTOPRAZOLE SODIUM 40 MG TABLET.DR PO SCH (06:16)
[2023-06-10] MEDS: BLOOD SUGAR DIAGNOSTIC 1 EACH STRIP VI SCH ×2 (06:26→11:15)
[2023-06-10 06:42] LABS: BASOPHILS % (AUTO) 0.1 % (0.0-2.0); EOSINOPHILS % (AUTO) 0.2 % (0.0-7.0); HEMATOCRIT 30.9 % (36.7-47.1); HEMOGLOBIN 10.4 g/dL (12.5-16.3); LYMPHOCYTES # (AUTO) 0.4 K/uL (0.8-4.8); LYMPHOCYTES % (AUTO) 4.7 % (20.5-51.5); MEAN CORPUSCULAR HEMOGLOBIN 32.5 uug (23.8-33.4); MEAN CORPUSCULAR HGB CONC 34 g/dL (32.5-36.3); MEAN CORPUSCULAR VOLUME 96.4 fL (73.0-96.2); MONOCYTES # (AUTO) 0.7 K/uL (0.1-1.30); MONOCYTES % (AUTO) 8.2 % (0.0-11.0); NEUTROPHILS # (AUTO) 7.6 K/uL (1.8-8.9); NEUTROPHILS % (AUTO) 86.8 % (38.5-71.5); PLATELET COUNT (AUTO) 65 K/uL (152-348); RED BLOOD CELL COUNT(AUTO) 3.21 MIL/uL (4.06-5.63); RED CELL DISTRIBUTION WIDTH 16.3 % (12.1-16.2); WHITE BLOOD COUNT (AUTO) 8.8 K/uL (3.6-10.2)
[2023-06-10 06:51] LABS: CALCIUM 7.6 mg/dL (8.5-10.1); MAGNESIUM 2.3 mg/dL (1.8-2.4); PHOSPHOROUS 5.3 mg/dL (2.5-4.9); POTASSIUM 4.4 mmol/L (3.5-5.1)
[2023-06-10 06:57] LABS: DIFFERENTIAL COMMENT 1
[2023-06-10 07:11] LABS: CREATININE 9.4 mg/dL (0.6-1.3)
[2023-06-10] MEDS: SEVELAMER CARBONATE 800 MG TABLET PO SCH ×2 (08:57→12:55)
[2023-06-10] MEDS: NIFEdipine XL 60 MG TABSR PO SCH ×2 (08:58→21:00)
[2023-06-10] MEDS ORDERED: LABETALOL HCL 200 MG TABLET PO SCH (09:00)
[2023-06-10] MEDS: hydrALAZINE HCL 50 MG TABLET PO SCH ×2 (09:02→13:20)
[2023-06-10] MEDS: OXYCODONE/APAP 5-325 MG TABLET PO PRN ×2 (11:10→18:08)
[2023-06-10] MEDS ORDERED: GABAPENTIN 300 MG CAPSULE PO SCH (18:00)
[2023-06-11] VITALS (8 sets, daily range): BP systolic 117–135; BP diastolic 61–84; TEMP 97.7–99.1; O2SAT 95–98
[2023-06-11] MEDS: OXYCODONE/APAP 5-325 MG TABLET PO PRN ×3 (01:05→20:05)
[2023-06-11] MEDS: AZITHROMYCIN IV 500 MG in IV DEXTROSE 5% 250 ML IV SCH (01:07)
[2023-06-11] MEDS: CEFTRIAXONE 1 G in IV DEXTROSE 5% 50 ML IV SCH (01:07)
[2023-06-11 06:35] LABS: BASOPHILS % (AUTO) 0.1 % (0.0-2.0); HEMATOCRIT 30.5 % (36.7-47.1); HEMOGLOBIN 10.3 g/dL (12.5-16.3); LYMPHOCYTES # (AUTO) 0.9 K/uL (0.8-4.8); LYMPHOCYTES % (AUTO) 8.1 % (20.5-51.5); MEAN CORPUSCULAR HEMOGLOBIN 32.5 uug (23.8-33.4); MEAN CORPUSCULAR HGB CONC 34 g/dL (32.5-36.3); MEAN CORPUSCULAR VOLUME 96.4 fL (73.0-96.2); MONOCYTES % (AUTO) 9.7 % (0.0-11.0); NEUTROPHILS # (AUTO) 8.8 K/uL (1.8-8.9); NEUTROPHILS % (AUTO) 82.1 % (38.5-71.5); PLATELET COUNT (AUTO) 96 K/uL (152-348); RED BLOOD CELL COUNT(AUTO) 3.17 MIL/uL (4.06-5.63); RED CELL DISTRIBUTION WIDTH 16.4 % (12.1-16.2); WHITE BLOOD COUNT (AUTO) 10.8 K/uL (3.6-10.2)
[2023-06-11 06:47] LABS: MAGNESIUM 2.9 mg/dL (1.8-2.4); PHOSPHOROUS 7.5 mg/dL (2.5-4.9); POTASSIUM 4.7 mmol/L (3.5-5.1)
[2023-06-11] MEDS: PANTOPRAZOLE SODIUM 40 MG TABLET.DR PO SCH (07:00)
[2023-06-11 07:05] LABS: DIFFERENTIAL COMMENT 1
[2023-06-11 07:41] LABS: CREATININE 11.4 mg/dL (0.6-1.3)
[2023-06-11 08:31] LABS: HIV-1/2 ANTIBODY NON REACTIVE (NONREACTIVE)
[2023-06-11 08:32] LABS: HIV-1 p24 ANTIGEN NON REACTIVE (NONREACTIVE)
[2023-06-11] MEDS: DEXAMETHASONE SOD PHOSPHATE 4 MG INJ IV SCH (08:57)
[2023-06-11] MEDS: APIXABAN 5 MG TABLET PO SCH ×2 (08:57→20:37)
[2023-06-11] MEDS: NIFEdipine XL 60 MG TABSR PO SCH ×2 (08:57→20:02)
[2023-06-11] MEDS ORDERED: VANCOMYCIN IV 1,250 MG in IV DEXTROSE 5% 250 ML IV ONE (12:00)
[2023-06-12] VITALS (8 sets, daily range): BP systolic 109–136; BP diastolic 60–81; TEMP 97.7–98.4; O2SAT 97–98
[2023-06-12] MEDS: LORAZEPAM 2 MG/1 ML VIAL IV PRN ×2 (00:53→22:49)
[2023-06-12] MEDS: CEFTRIAXONE 1 G in IV DEXTROSE 5% 50 ML IV SCH (01:03)
[2023-06-12] MEDS: AZITHROMYCIN IV 500 MG in IV DEXTROSE 5% 250 ML IV SCH (01:03)
[2023-06-12] MEDS: OXYCODONE/APAP 5-325 MG TABLET PO PRN ×3 (02:27→17:21)
[2023-06-12] MEDS ORDERED: DEXTROSE 50% 50 ML DISP.SYRIN IV PRN (02:45)
[2023-06-12] MEDS: PANTOPRAZOLE SODIUM 40 MG TABLET.DR PO SCH (06:04)
[2023-06-12] MEDS: BLOOD SUGAR DIAGNOSTIC 1 EACH STRIP VI SCH ×4 (06:23→20:52)
[2023-06-12 07:26] LABS: EOSINOPHILS % (AUTO) 0.4 % (0.0-7.0); HEMATOCRIT 30.6 % (36.7-47.1); HEMOGLOBIN 10.3 g/dL (12.5-16.3); LYMPHOCYTES # (AUTO) 0.9 K/uL (0.8-4.8); LYMPHOCYTES % (AUTO) 10.1 % (20.5-51.5); MEAN CORPUSCULAR HEMOGLOBIN 32.5 uug (23.8-33.4); MEAN CORPUSCULAR HGB CONC 34 g/dL (32.5-36.3); MEAN CORPUSCULAR VOLUME 96.4 fL (73.0-96.2); MONOCYTES # (AUTO) 0.7 K/uL (0.1-1.30); MONOCYTES % (AUTO) 7.3 % (0.0-11.0); NEUTROPHILS # (AUTO) 7.6 K/uL (1.8-8.9); NEUTROPHILS % (AUTO) 82.2 % (38.5-71.5); PLATELET COUNT (AUTO) 133 K/uL (152-348); RED BLOOD CELL COUNT(AUTO) 3.17 MIL/uL (4.06-5.63); RED CELL DISTRIBUTION WIDTH 16.5 % (12.1-16.2); WHITE BLOOD COUNT (AUTO) 9.3 K/uL (3.6-10.2)
[2023-06-12 07:52] LABS: DIFFERENTIAL COMMENT 1
[2023-06-12] MEDS ORDERED: VANCOMYCIN IV 500 MG in IV DEXTROSE 5% 100 ML IV PRN (08:00)
[2023-06-12 08:40] LABS: CALCIUM 8.3 mg/dL (8.5-10.1); MAGNESIUM 2.6 mg/dL (1.8-2.4); PHOSPHOROUS 6.5 mg/dL (2.5-4.9); POTASSIUM 4.4 mmol/L (3.5-5.1); VANCOMYCIN,RANDOM 39.6 ug/mL (18.0-26.0)
[2023-06-12 09:08] LABS: CREATININE 9.6 mg/dL (0.6-1.3)
[2023-06-12] MEDS: DEXAMETHASONE SOD PHOSPHATE 4 MG INJ IV SCH (09:57)
[2023-06-12] MEDS: NIFEdipine XL 60 MG TABSR PO SCH ×2 (09:58→20:48)
[2023-06-12] MEDS: APIXABAN 5 MG TABLET PO SCH ×2 (10:00→20:47)
[2023-06-12] MEDS: INSULIN REGULAR, HUMAN 300 UNIT/3 ML VIAL SQ PRN ×2 (17:06→20:53)
[2023-06-12] MEDS: AZITHROMYCIN 250 MG TABLET PO SCH (21:20)
[2023-06-13] VITALS: BP 135/87; TEMP 98.1; O2SAT 97
[2023-06-13] MEDS: CEFTRIAXONE 1 G in IV DEXTROSE 5% 50 ML IV SCH (02:26)
[2023-06-13] MEDS: OXYCODONE/APAP 5-325 MG TABLET PO PRN ×2 (05:08→12:45)
[2023-06-13 05:12] VITALS: BP 110/77; TEMP 97.7; O2SAT 97
[2023-06-13] MEDS: BLOOD SUGAR DIAGNOSTIC 1 EACH STRIP VI SCH ×4 (06:23→21:37)
[2023-06-13] MEDS: PANTOPRAZOLE SODIUM 40 MG TABLET.DR PO SCH (06:23)
[2023-06-13 07:23] LABS: BASOPHILS % (AUTO) 0.2 % (0.0-2.0); EOSINOPHILS # (AUTO) 0.1 K/uL (0.0-0.7); EOSINOPHILS % (AUTO) 0.8 % (0.0-7.0); HEMATOCRIT 31.9 % (36.7-47.1); HEMOGLOBIN 10.8 g/dL (12.5-16.3); LYMPHOCYTES # (AUTO) 1.2 K/uL (0.8-4.8); MEAN CORPUSCULAR HEMOGLOBIN 32.4 uug (23.8-33.4); MEAN CORPUSCULAR HGB CONC 34 g/dL (32.5-36.3); MEAN CORPUSCULAR VOLUME 95.4 fL (73.0-96.2); MONOCYTES # (AUTO) 0.8 K/uL (0.1-1.30); MONOCYTES % (AUTO) 8.3 % (0.0-11.0); NEUTROPHILS # (AUTO) 7.9 K/uL (1.8-8.9); NEUTROPHILS % (AUTO) 78.7 % (38.5-71.5); PLATELET COUNT (AUTO) 161 K/uL (152-348); RED BLOOD CELL COUNT(AUTO) 3.34 MIL/uL (4.06-5.63)
[2023-06-13 07:33] LABS: DIFFERENTIAL COMMENT 1
[2023-06-13 07:36] LABS: CALCIUM 8.3 mg/dL (8.5-10.1); POTASSIUM 4.9 mmol/L (3.5-5.1)
[2023-06-13 08:00] VITALS: BP 134/77; TEMP 98.6; O2SAT 96
[2023-06-13] MEDS: DEXAMETHASONE SOD PHOSPHATE 4 MG INJ IV SCH (09:05)
[2023-06-13] MEDS: NIFEdipine XL 60 MG TABSR PO SCH ×2 (09:06→21:44)
[2023-06-13] MEDS: APIXABAN 5 MG TABLET PO SCH ×2 (09:11→21:45)
[2023-06-13 09:15] LABS: CREATININE 11.6 mg/dL (0.6-1.3)
[2023-06-13 11:51] VITALS: BP 133/82; TEMP 98.8; O2SAT 95
[2023-06-13] MEDS: INSULIN REGULAR, HUMAN 300 UNIT/3 ML VIAL SQ PRN ×3 (12:47→21:47)
[2023-06-13 15:47] VITALS: BP 119/68; TEMP 98; O2SAT 98
[2023-06-13] MEDS: LORAZEPAM 2 MG/1 ML VIAL IV PRN (20:20)
[2023-06-13] MEDS: ACETAMINOPHEN 325 MG TABLET PO PRN (21:16)
[2023-06-13 21:25] VITALS: BP 120/69; TEMP 98.3; O2SAT 98
[2023-06-13] MEDS: AZITHROMYCIN 250 MG TABLET PO SCH (22:00)
[2023-06-14] MEDS: CEFTRIAXONE 1 G in IV DEXTROSE 5% 50 ML IV SCH (02:38)
[2023-06-14 05:25] VITALS: BP 118/62; TEMP 98.2; O2SAT 99
[2023-06-14] MEDS: BLOOD SUGAR DIAGNOSTIC 1 EACH STRIP VI SCH ×4 (06:38→20:30)
[2023-06-14] MEDS: PANTOPRAZOLE SODIUM 40 MG TABLET.DR PO SCH (07:09)
[2023-06-14] MEDS: OXYCODONE/APAP 5-325 MG TABLET PO PRN ×2 (07:15→20:30)
[2023-06-14 07:33] LABS: EOSINOPHILS # (AUTO) 0.1 K/uL (0.0-0.7); EOSINOPHILS % (AUTO) 1.2 % (0.0-7.0); HEMATOCRIT 30.5 % (36.7-47.1); HEMOGLOBIN 10.3 g/dL (12.5-16.3); LYMPHOCYTES # (AUTO) 1.4 K/uL (0.8-4.8); MEAN CORPUSCULAR HEMOGLOBIN 32.3 uug (23.8-33.4); MEAN CORPUSCULAR HGB CONC 34 g/dL (32.5-36.3); MEAN CORPUSCULAR VOLUME 95.8 fL (73.0-96.2); MONOCYTES # (AUTO) 0.9 K/uL (0.1-1.30); MONOCYTES % (AUTO) 8.8 % (0.0-11.0); NEUTROPHILS # (AUTO) 7.6 K/uL (1.8-8.9); PLATELET COUNT (AUTO) 177 K/uL (152-348); RED BLOOD CELL COUNT(AUTO) 3.19 MIL/uL (4.06-5.63); RED CELL DISTRIBUTION WIDTH 16.1 % (12.1-16.2)
[2023-06-14 07:38] LABS: DIFFERENTIAL COMMENT 1
[2023-06-14 07:47] LABS: CALCIUM 8.3 mg/dL (8.5-10.1); POTASSIUM 5.1 mmol/L (3.5-5.1)
[2023-06-14 08:27] LABS: CREATININE 13.9 mg/dL (0.6-1.3)
[2023-06-14] MEDS: NIFEdipine XL 60 MG TABSR PO SCH ×2 (09:00→17:04)
[2023-06-14] MEDS ORDERED: LIDOCAINE 1%-EPI 1:100,000 20 ML VIAL IJ ONE (11:15)
[2023-06-14 11:44] VITALS: BP 144/77; TEMP 97.6; O2SAT 97
[2023-06-14] MEDS: CEFAZOLIN 1 G in IV DEXTROSE 5% 50 ML IV SCH (14:57)
[2023-06-14] MEDS: APIXABAN 5 MG TABLET PO SCH ×2 (15:00→20:29)
[2023-06-14 16:00] VITALS: BP 153/99; TEMP 98.3; O2SAT 95
[2023-06-14] MEDS: BACLOFEN 10 MG TABLET PO SCH ×2 (17:01→20:28)
[2023-06-14] MEDS: INSULIN REGULAR, HUMAN 300 UNIT/3 ML VIAL SQ PRN (17:15)
[2023-06-14 20:20] VITALS: BP 142/91; TEMP 100.3; O2SAT 94
[2023-06-14] MEDS ORDERED: OXYCODONE/APAP 5-325 MG TABLET PO ONE (23:00)
[2023-06-15] MEDS: OXYCODONE/APAP 5-325 MG TABLET PO PRN ×2 (03:21→12:04)
[2023-06-15 04:19] VITALS: BP 146/103; TEMP 98.5; O2SAT 94
[2023-06-15] MEDS: PANTOPRAZOLE SODIUM 40 MG TABLET.DR PO SCH (06:00)
[2023-06-15] MEDS: BLOOD SUGAR DIAGNOSTIC 1 EACH STRIP VI SCH ×4 (06:32→21:27)
[2023-06-15 08:24] LABS: BASOPHILS % (AUTO) 0.4 % (0.0-2.0); EOSINOPHILS # (AUTO) 0.1 K/uL (0.0-0.7); LYMPHOCYTES % (AUTO) 9.7 % (20.5-51.5); MEAN CORPUSCULAR HEMOGLOBIN 32.2 uug (23.8-33.4); MEAN CORPUSCULAR HGB CONC 33 g/dL (32.5-36.3); MEAN CORPUSCULAR VOLUME 96.4 fL (73.0-96.2); MONOCYTES # (AUTO) 0.8 K/uL (0.1-1.30); MONOCYTES % (AUTO) 7.8 % (0.0-11.0); NEUTROPHILS # (AUTO) 8.4 K/uL (1.8-8.9); NEUTROPHILS % (AUTO) 81.1 % (38.5-71.5); PLATELET COUNT (AUTO) 178 K/uL (152-348); RED BLOOD CELL COUNT(AUTO) 3.11 MIL/uL (4.06-5.63); WHITE BLOOD COUNT (AUTO) 10.4 K/uL (3.6-10.2)
[2023-06-15 08:28] LABS: DIFFERENTIAL COMMENT 1
[2023-06-15 08:34] LABS: CALCIUM 8.6 mg/dL (8.5-10.1)
[2023-06-15] MEDS: BACLOFEN 10 MG TABLET PO SCH ×2 (08:36→21:13)
[2023-06-15] MEDS: APIXABAN 5 MG TABLET PO SCH ×2 (08:38→21:13)
[2023-06-15] MEDS: NIFEdipine XL 60 MG TABSR PO SCH ×2 (08:43→21:14)
[2023-06-15] MEDS: NEPRO (VANILLA) 237 ML CAN PO SCH (09:03)
[2023-06-15 09:20] LABS: CREATININE 10.3 mg/dL (0.6-1.3)
[2023-06-15] MEDS: CEFAZOLIN 1 G in IV DEXTROSE 5% 50 ML IV SCH (09:28)
[2023-06-15 10:37] LABS: MAGNESIUM 2.8 mg/dL (1.8-2.4); PHOSPHOROUS 6.9 mg/dL (2.5-4.9)
[2023-06-15 11:16] VITALS: BP 128/41; TEMP 98.2; O2SAT 96
[2023-06-15 14:59] VITALS: BP 140/79; TEMP 98.2; O2SAT 97
[2023-06-15 20:00] VITALS: BP 101/55; TEMP 97.7; O2SAT 98
[2023-06-15 21:02] VITALS: O2SAT 97
[2023-06-16] MEDS: LORAZEPAM 2 MG/1 ML VIAL IV PRN ×2 (01:19→22:14)
[2023-06-16] MEDS: OXYCODONE/APAP 5-325 MG TABLET PO PRN (01:45)
[2023-06-16 04:00] VITALS: BP 127/82; TEMP 99.4; O2SAT 95
[2023-06-16] MEDS: PANTOPRAZOLE SODIUM 40 MG TABLET.DR PO SCH ×2 (06:12→09:40)
[2023-06-16 06:52] LABS: BASOPHILS # (AUTO) 0.1 K/UL (0.0-0.2); BASOPHILS % (AUTO) 0.7 % (0.0-2.0); EOSINOPHILS # (AUTO) 0.2 K/uL (0.0-0.7); EOSINOPHILS % (AUTO) 2.2 % (0.0-7.0); HEMATOCRIT 29.2 % (36.7-47.1); HEMOGLOBIN 9.7 g/dL (12.5-16.3); LYMPHOCYTES # (AUTO) 1.1 K/uL (0.8-4.8); MEAN CORPUSCULAR HEMOGLOBIN 31.8 uug (23.8-33.4); MEAN CORPUSCULAR HGB CONC 33 g/dL (32.5-36.3); MEAN CORPUSCULAR VOLUME 95.3 fL (73.0-96.2); MONOCYTES # (AUTO) 0.8 K/uL (0.1-1.30); MONOCYTES % (AUTO) 7.1 % (0.0-11.0); NEUTROPHILS # (AUTO) 8.9 K/uL (1.8-8.9); PLATELET COUNT (AUTO) 189 K/uL (152-348); RED BLOOD CELL COUNT(AUTO) 3.06 MIL/uL (4.06-5.63); RED CELL DISTRIBUTION WIDTH 16.3 % (12.1-16.2); WHITE BLOOD COUNT (AUTO) 11.1 K/uL (3.6-10.2)
[2023-06-16 07:02] LABS: CALCIUM 8.1 mg/dL (8.5-10.1); POTASSIUM 5.9 mmol/L (3.5-5.1)
[2023-06-16] MEDS: BLOOD SUGAR DIAGNOSTIC 1 EACH STRIP VI SCH ×4 (07:05→20:27)
[2023-06-16 07:06] LABS: DIFFERENTIAL COMMENT 1
[2023-06-16 08:20] LABS: CREATININE 12.6 mg/dL (0.6-1.3)
[2023-06-16] MEDS: NEPRO (VANILLA) 237 ML CAN PO SCH (09:00)
[2023-06-16] MEDS: NIFEdipine XL 60 MG TABSR PO SCH ×2 (09:39→20:17)
[2023-06-16] MEDS: BACLOFEN 10 MG TABLET PO SCH (09:40)
[2023-06-16] MEDS: APIXABAN 5 MG TABLET PO SCH ×2 (09:40→20:19)
[2023-06-16] MEDS: CEFAZOLIN 1 G in IV DEXTROSE 5% 50 ML IV SCH (09:41)
[2023-06-16 10:00] VITALS: O2SAT 93
[2023-06-16 10:36] LABS: ABG BASE EXCESS 0.1 mmol/L; ABG HCO3 22.9 mmol/L; ABG PCO2 31.2 mmHg (35.0-45.0); ABG PH 7.484 (7.350-7.450); ABG PO2 59.3 mmHg (75.0-100.0); ABG SITE RIGHT RADIAL; ABG TOTAL HEMOGLOBIN 10.8 G/dL (13.5-18.0); COHb 1.4 % (0.5-1.5); VENT MODE Room Air
[2023-06-16 11:45] VITALS: BP 165/97; TEMP 98.4; O2SAT 95
[2023-06-16] MEDS ORDERED: SODIUM POLYSTYRENE SULFONATE 15 G/60 ML LIQUID UDC PO ONE ×2 (13:30→17:00)
[2023-06-16 16:09] VITALS: BP 180/110; TEMP 98.3; O2SAT 95
[2023-06-16 20:00] VITALS: BP 172/100; TEMP 99; O2SAT 96
[2023-06-16] MEDS: ACETAMINOPHEN 325 MG TABLET PO PRN (20:23)
[2023-06-17 04:00] VITALS: BP 193/110; TEMP 99; O2SAT 97
[2023-06-17] MEDS: BLOOD SUGAR DIAGNOSTIC 1 EACH STRIP VI SCH ×4 (06:37→21:19)
[2023-06-17 08:07] LABS: BASOPHILS # (AUTO) 0.1 K/UL (0.0-0.2); BASOPHILS % (AUTO) 0.5 % (0.0-2.0); EOSINOPHILS # (AUTO) 0.2 K/uL (0.0-0.7); EOSINOPHILS % (AUTO) 1.6 % (0.0-7.0); HEMOGLOBIN 9.1 g/dL (12.5-16.3); LYMPHOCYTES # (AUTO) 0.8 K/uL (0.8-4.8); LYMPHOCYTES % (AUTO) 8.5 % (20.5-51.5); MEAN CORPUSCULAR HEMOGLOBIN 32.2 uug (23.8-33.4); MEAN CORPUSCULAR HGB CONC 34 g/dL (32.5-36.3); MEAN CORPUSCULAR VOLUME 95.8 fL (73.0-96.2); MONOCYTES # (AUTO) 0.6 K/uL (0.1-1.30); MONOCYTES % (AUTO) 6.4 % (0.0-11.0); NEUTROPHILS # (AUTO) 7.8 K/uL (1.8-8.9); PLATELET COUNT (AUTO) 184 K/uL (152-348); RED BLOOD CELL COUNT(AUTO) 2.82 MIL/uL (4.06-5.63); RED CELL DISTRIBUTION WIDTH 15.8 % (12.1-16.2); WHITE BLOOD COUNT (AUTO) 9.4 K/uL (3.6-10.2)
[2023-06-17 08:13] LABS: DIFFERENTIAL COMMENT 1
[2023-06-17 08:27] LABS: CALCIUM 8.9 mg/dL (8.5-10.1); MAGNESIUM 3.4 mg/dL (1.8-2.4)
[2023-06-17 08:57] LABS: CREATININE 16.1 mg/dL (0.6-1.3); POTASSIUM 6.9 mmol/L (3.5-5.1)
[2023-06-17 08:58] LABS: PHOSPHOROUS 12.2 mg/dL (2.5-4.9)
[2023-06-17 09:00] VITALS: BP 194/118; TEMP 98.9; O2SAT 97
[2023-06-17] MEDS: CEFAZOLIN 1 G in IV DEXTROSE 5% 50 ML IV SCH (09:00)
[2023-06-17] MEDS: NEPRO (VANILLA) 237 ML CAN PO SCH (09:00)
[2023-06-17] MEDS: NIFEdipine XL 60 MG TABSR PO SCH ×2 (09:00→20:51)
[2023-06-17] MEDS: APIXABAN 5 MG TABLET PO SCH ×2 (09:00→20:53)
[2023-06-17] MEDS: hydrALAZINE HCL 20 MG/1 ML VIAL IV PRN ×3 (10:17→20:52)
[2023-06-17 11:30] VITALS: BP 215/211; TEMP 98.7; O2SAT 98
[2023-06-17] MEDS ORDERED: DEXTROSE 50% 50 ML DISP.SYRIN IV ONE (12:00)
[2023-06-17] MEDS ORDERED: INSULIN REGULAR, HUMAN 300 UNIT/3 ML VIAL IV ONE (12:00)
[2023-06-17] MEDS ORDERED: SODIUM BICARBONATE 8.4% 50 MEQ/50 ML DISP.SYRIN IV ONE (12:00)
[2023-06-17 15:14] LABS: CALCIUM 9.3 mg/dL (8.5-10.1)
[2023-06-17 15:16] LABS: CREATININE 17.1 mg/dL (0.6-1.3); POTASSIUM 6.2 mmol/L (3.5-5.1)
[2023-06-17] MEDS ORDERED: HEPARIN/NS 500 ML ONE (16:21)
[2023-06-17] MEDS ORDERED: HEPARIN SODIUM,PORCINE 1,000 UNITS/ML VIAL ONE (16:21)
[2023-06-17] MEDS ORDERED: IOPAMIDOL 15 ML VIAL IT ONE (16:21)
[2023-06-17] MEDS ORDERED: LIDOCAINE HCL 1% 20 ML VIAL ONE (16:21)
[2023-06-17 16:32] VITALS: BP 228/133; TEMP 98; O2SAT 100
[2023-06-17 16:50] VITALS: O2SAT 98
[2023-06-17] MEDS ORDERED: FENTANYL CITRATE 100 MCG/2 ML AMPUL ONE (16:56)
[2023-06-17] MEDS ORDERED: MIDAZOLAM HCL 2 MG/2 ML VIAL ONE ×2 (16:57→17:14)
[2023-06-17] MEDS ORDERED: diphenhydrAMINE 50 MG/1 ML VIAL ONE (18:00)
[2023-06-17 20:00] VITALS: BP 228/127; TEMP 98; O2SAT 99
[2023-06-17] MEDS: LORAZEPAM 2 MG/1 ML VIAL IV PRN (21:09)
[2023-06-18] VITALS (9 sets, daily range): BP systolic 122–227; BP diastolic 60–126; TEMP 97–98.4; O2SAT 94–99
[2023-06-18] MEDS: hydrALAZINE HCL 20 MG/1 ML VIAL IV PRN (03:41)
[2023-06-18] MEDS ORDERED: HALOPERIDOL LACTATE 5 MG/1 ML VIAL IM ONE (04:15)
[2023-06-18] MEDS: PANTOPRAZOLE SODIUM 40 MG TABLET.DR PO SCH (06:20)
[2023-06-18] MEDS: BLOOD SUGAR DIAGNOSTIC 1 EACH STRIP VI SCH ×4 (06:24→21:10)
[2023-06-18] MEDS: CEFAZOLIN 1 G in IV DEXTROSE 5% 50 ML IV SCH (09:24)
[2023-06-18] MEDS: NIFEdipine XL 60 MG TABSR PO SCH ×2 (09:24→21:06)
[2023-06-18] MEDS: APIXABAN 5 MG TABLET PO SCH ×2 (09:26→21:09)
[2023-06-18] MEDS: NEPRO (VANILLA) 237 ML CAN PO SCH (09:28)
[2023-06-18 11:07] LABS: CALCIUM 8.2 mg/dL (8.5-10.1)
[2023-06-18 12:11] LABS: CREATININE 10.4 mg/dL (0.6-1.3)
[2023-06-18] MEDS: LORAZEPAM 2 MG/1 ML VIAL IV PRN (17:57)
[2023-06-19] VITALS (7 sets, daily range): BP systolic 114–155; BP diastolic 50–92; TEMP 97.6–98.2; O2SAT 92–99
[2023-06-19] MEDS: BLOOD SUGAR DIAGNOSTIC 1 EACH STRIP VI SCH ×4 (06:22→20:37)
[2023-06-19 06:47] LABS: BASOPHILS # (AUTO) 0.1 K/UL (0.0-0.2); BASOPHILS % (AUTO) 0.7 % (0.0-2.0); EOSINOPHILS # (AUTO) 0.2 K/uL (0.0-0.7); EOSINOPHILS % (AUTO) 2.3 % (0.0-7.0); HEMATOCRIT 27.3 % (36.7-47.1); HEMOGLOBIN 9.2 g/dL (12.5-16.3); LYMPHOCYTES # (AUTO) 0.8 K/uL (0.8-4.8); LYMPHOCYTES % (AUTO) 10.1 % (20.5-51.5); MEAN CORPUSCULAR HEMOGLOBIN 32.3 uug (23.8-33.4); MEAN CORPUSCULAR HGB CONC 34 g/dL (32.5-36.3); MEAN CORPUSCULAR VOLUME 95.7 fL (73.0-96.2); MONOCYTES # (AUTO) 0.7 K/uL (0.1-1.30); MONOCYTES % (AUTO) 9.1 % (0.0-11.0); NEUTROPHILS # (AUTO) 6.1 K/uL (1.8-8.9); NEUTROPHILS % (AUTO) 77.8 % (38.5-71.5); PLATELET COUNT (AUTO) 247 K/uL (152-348); RED BLOOD CELL COUNT(AUTO) 2.85 MIL/uL (4.06-5.63); RED CELL DISTRIBUTION WIDTH 15.5 % (12.1-16.2); WHITE BLOOD COUNT (AUTO) 7.8 K/uL (3.6-10.2)
[2023-06-19 06:55] LABS: DIFFERENTIAL COMMENT 1
[2023-06-19 07:06] LABS: CALCIUM 8.6 mg/dL (8.5-10.1); MAGNESIUM 2.9 mg/dL (1.8-2.4); POTASSIUM 5.4 mmol/L (3.5-5.1)
[2023-06-19] MEDS: PANTOPRAZOLE SODIUM 40 MG TABLET.DR PO SCH (07:09)
[2023-06-19 07:12] LABS: CREATININE 12.8 mg/dL (0.6-1.3); PHOSPHOROUS 8.7 mg/dL (2.5-4.9)
[2023-06-19] MEDS: NIFEdipine XL 60 MG TABSR PO SCH ×2 (09:53→20:27)
[2023-06-19] MEDS: SEVELAMER CARBONATE 800 MG TABLET PO SCH ×3 (09:53→17:22)
[2023-06-19] MEDS: CEFAZOLIN 1 G in IV DEXTROSE 5% 50 ML IV SCH (09:54)
[2023-06-19] MEDS: NEPRO (VANILLA) 237 ML CAN PO SCH (09:54)
[2023-06-19] MEDS: ACETAMINOPHEN 325 MG TABLET PO PRN (09:54)
[2023-06-19] MEDS: APIXABAN 5 MG TABLET PO SCH ×2 (10:15→20:28)
[2023-06-19] MEDS ORDERED: VITAMINS A AND D OINT 42 GM TUBE TP PRN (15:00)
[2023-06-19] MEDS: MICAFUNGIN SODIUM 100 MG in IV NORMAL SALINE 100 ML IV SCH (15:30)
[2023-06-19] MEDS: INSULIN REGULAR, HUMAN 300 UNIT/3 ML VIAL SQ PRN (20:37)
[2023-06-20] MEDS: BLOOD SUGAR DIAGNOSTIC 1 EACH STRIP VI SCH ×4 (06:20→21:31)
[2023-06-20] MEDS: PANTOPRAZOLE SODIUM 40 MG TABLET.DR PO SCH (06:23)
[2023-06-20] MEDS: CEFAZOLIN 1 G in IV DEXTROSE 5% 50 ML IV SCH (09:18)
[2023-06-20] MEDS: NEPRO (VANILLA) 237 ML CAN PO SCH (09:25)
[2023-06-20] MEDS: NIFEdipine XL 60 MG TABSR PO SCH ×2 (09:25→21:29)
[2023-06-20] MEDS: APIXABAN 5 MG TABLET PO SCH ×2 (09:28→21:30)
[2023-06-20] MEDS: SEVELAMER CARBONATE 800 MG TABLET PO SCH ×3 (09:29→17:10)
[2023-06-20 09:54] LABS: BASOPHILS # (AUTO) 0.1 K/UL (0.0-0.2); BASOPHILS % (AUTO) 1.3 % (0.0-2.0); EOSINOPHILS # (AUTO) 0.2 K/uL (0.0-0.7); EOSINOPHILS % (AUTO) 2.4 % (0.0-7.0); HEMATOCRIT 26.3 % (36.7-47.1); LYMPHOCYTES % (AUTO) 11.3 % (20.5-51.5); MEAN CORPUSCULAR HEMOGLOBIN 32.6 uug (23.8-33.4); MEAN CORPUSCULAR HGB CONC 34 g/dL (32.5-36.3); MEAN CORPUSCULAR VOLUME 95.3 fL (73.0-96.2); MONOCYTES # (AUTO) 0.7 K/uL (0.1-1.30); MONOCYTES % (AUTO) 8.4 % (0.0-11.0); NEUTROPHILS # (AUTO) 6.6 K/uL (1.8-8.9); NEUTROPHILS % (AUTO) 76.6 % (38.5-71.5); PLATELET COUNT (AUTO) 270 K/uL (152-348); RED BLOOD CELL COUNT(AUTO) 2.76 MIL/uL (4.06-5.63); RED CELL DISTRIBUTION WIDTH 15.7 % (12.1-16.2); WHITE BLOOD COUNT (AUTO) 8.6 K/uL (3.6-10.2)
[2023-06-20 10:20] LABS: DIFFERENTIAL COMMENT 1
[2023-06-20 11:16] LABS: CALCIUM 8.4 mg/dL (8.5-10.1); CREATININE 8.5 mg/dL (0.6-1.3); MAGNESIUM 2.3 mg/dL (1.8-2.4); PHOSPHOROUS 5.7 mg/dL (2.5-4.9); POTASSIUM 4.4 mmol/L (3.5-5.1)
[2023-06-20 12:00] VITALS: BP 129/83; TEMP 98.7; O2SAT 93
[2023-06-20] MEDS: MICAFUNGIN SODIUM 100 MG in IV NORMAL SALINE 100 ML IV SCH (15:03)
[2023-06-20 16:22] VITALS: BP 131/88; TEMP 99.3; O2SAT 98
[2023-06-20 20:30] VITALS: BP 150/100; TEMP 99; O2SAT 96
[2023-06-21 02:24] VITALS: O2SAT 94
[2023-06-21 05:00] VITALS: BP 155/92; TEMP 98.7; O2SAT 95
[2023-06-21] MEDS: hydrALAZINE HCL 20 MG/1 ML VIAL IV PRN (05:20)
[2023-06-21] MEDS: PANTOPRAZOLE SODIUM 40 MG TABLET.DR PO SCH (06:19)
[2023-06-21 07:00] LABS: BASOPHILS # (AUTO) 0.1 K/UL (0.0-0.2); BASOPHILS % (AUTO) 1.8 % (0.0-2.0); EOSINOPHILS # (AUTO) 0.2 K/uL (0.0-0.7); EOSINOPHILS % (AUTO) 2.2 % (0.0-7.0); HEMATOCRIT 23.7 % (36.7-47.1); LYMPHOCYTES # (AUTO) 1.2 K/uL (0.8-4.8); LYMPHOCYTES % (AUTO) 14.5 % (20.5-51.5); MEAN CORPUSCULAR HEMOGLOBIN 32.5 uug (23.8-33.4); MEAN CORPUSCULAR HGB CONC 34 g/dL (32.5-36.3); MEAN CORPUSCULAR VOLUME 96.2 fL (73.0-96.2); MONOCYTES # (AUTO) 0.6 K/uL (0.1-1.30); MONOCYTES % (AUTO) 7.7 % (0.0-11.0); NEUTROPHILS % (AUTO) 73.8 % (38.5-71.5); PLATELET COUNT (AUTO) 242 K/uL (152-348); RED CELL DISTRIBUTION WIDTH 15.4 % (12.1-16.2); WHITE BLOOD COUNT (AUTO) 8.2 K/uL (3.6-10.2)
[2023-06-21 07:07] LABS: DIFFERENTIAL COMMENT 1; RED BLOOD CELL COUNT(AUTO) 2.46 MIL/uL (4.06-5.63)
[2023-06-21] MEDS: BLOOD SUGAR DIAGNOSTIC 1 EACH STRIP VI SCH ×4 (07:07→20:58)
[2023-06-21 07:14] LABS: CALCIUM 8.2 mg/dL (8.5-10.1); MAGNESIUM 2.5 mg/dL (1.8-2.4); POTASSIUM 4.4 mmol/L (3.5-5.1)
[2023-06-21 07:24] LABS: CREATININE 10.8 mg/dL (0.6-1.3)
[2023-06-21] MEDS: NIFEdipine XL 60 MG TABSR PO SCH ×2 (08:49→21:39)
[2023-06-21] MEDS: SEVELAMER CARBONATE 800 MG TABLET PO SCH ×3 (08:49→18:04)
[2023-06-21] MEDS: APIXABAN 5 MG TABLET PO SCH ×2 (08:50→21:53)
[2023-06-21] MEDS: NEPRO (VANILLA) 237 ML CAN PO SCH (08:52)
[2023-06-21 10:07] VITALS: BP 142/84
[2023-06-21 11:37] VITALS: BP 139/82; TEMP 98.6; O2SAT 92
[2023-06-21] MEDS: MICAFUNGIN SODIUM 100 MG in IV NORMAL SALINE 100 ML IV SCH (15:11)
[2023-06-21 15:43] VITALS: BP 134/85; TEMP 98.8; O2SAT 94
[2023-06-21] MEDS: CEFAZOLIN 1 G in IV DEXTROSE 5% 50 ML IV SCH (21:39)
[2023-06-21] MEDS: ACETAMINOPHEN 325 MG TABLET PO PRN (23:26)
[2023-06-22 04:20] VITALS: BP 130/72; TEMP 98.8; O2SAT 96
[2023-06-22] MEDS: PANTOPRAZOLE SODIUM 40 MG TABLET.DR PO SCH (06:17)
[2023-06-22] MEDS: BLOOD SUGAR DIAGNOSTIC 1 EACH STRIP VI SCH ×4 (06:18→21:39)
[2023-06-22] MEDS: SEVELAMER CARBONATE 800 MG TABLET PO SCH ×3 (08:00→19:08)
[2023-06-22] MEDS: NIFEdipine XL 60 MG TABSR PO SCH ×2 (09:30→21:35)
[2023-06-22] MEDS: CEFAZOLIN 1 G in IV DEXTROSE 5% 50 ML IV SCH (09:31)
[2023-06-22] MEDS: APIXABAN 5 MG TABLET PO SCH ×2 (09:34→21:38)
[2023-06-22] MEDS: NEPRO (VANILLA) 237 ML CAN PO SCH (09:35)
[2023-06-22] MEDS: ACETAMINOPHEN 325 MG TABLET PO PRN (09:35)
[2023-06-22] MEDS: INSULIN REGULAR, HUMAN 300 UNIT/3 ML VIAL SQ PRN (09:56)
[2023-06-22 12:04] VITALS: BP 156/98; TEMP 98.4; O2SAT 92
[2023-06-22] MEDS: MICAFUNGIN SODIUM 100 MG in IV NORMAL SALINE 100 ML IV SCH (15:11)
[2023-06-22 16:00] VITALS: BP 157/96; TEMP 98.5; O2SAT 95
[2023-06-22 20:00] VITALS: BP 163/93; TEMP 98.6
[2023-06-23] MEDS: ACETAMINOPHEN 325 MG TABLET PO PRN ×2 (02:53→21:57)
[2023-06-23 04:00] VITALS: BP 188/96; TEMP 98.3; O2SAT 98
[2023-06-23] MEDS: PANTOPRAZOLE SODIUM 40 MG TABLET.DR PO SCH (06:21)
[2023-06-23] MEDS: BLOOD SUGAR DIAGNOSTIC 1 EACH STRIP VI SCH ×4 (06:53→22:00)
[2023-06-23 07:14] LABS: BASOPHILS # (AUTO) 0.1 K/UL (0.0-0.2); BASOPHILS % (AUTO) 1.8 % (0.0-2.0); EOSINOPHILS # (AUTO) 0.3 K/uL (0.0-0.7); EOSINOPHILS % (AUTO) 5.6 % (0.0-7.0); HEMATOCRIT 21.4 % (36.7-47.1); LYMPHOCYTES # (AUTO) 0.9 K/uL (0.8-4.8); MEAN CORPUSCULAR HEMOGLOBIN 32.5 uug (23.8-33.4); MEAN CORPUSCULAR HGB CONC 34 g/dL (32.5-36.3); MEAN CORPUSCULAR VOLUME 95.4 fL (73.0-96.2); MONOCYTES # (AUTO) 0.4 K/uL (0.1-1.30); MONOCYTES % (AUTO) 8.2 % (0.0-11.0); NEUTROPHILS # (AUTO) 3.2 K/uL (1.8-8.9); NEUTROPHILS % (AUTO) 65.4 % (38.5-71.5); PLATELET COUNT (AUTO) 203 K/uL (152-348); RED CELL DISTRIBUTION WIDTH 14.9 % (12.1-16.2)
[2023-06-23 07:18] LABS: DIFFERENTIAL COMMENT 1; HEMOGLOBIN 7.3 g/dL (12.5-16.3); RED BLOOD CELL COUNT(AUTO) 2.24 MIL/uL (4.06-5.63)
[2023-06-23 07:30] VITALS: BP 188/124; TEMP 97.8; O2SAT 99
[2023-06-23 07:44] LABS: CALCIUM 7.6 mg/dL (8.5-10.1); MAGNESIUM 2.5 mg/dL (1.8-2.4); POTASSIUM 4.5 mmol/L (3.5-5.1)
[2023-06-23 08:10] LABS: CREATININE 10.9 mg/dL (0.6-1.3); PHOSPHOROUS 8.2 mg/dL (2.5-4.9)
[2023-06-23] MEDS: SEVELAMER CARBONATE 800 MG TABLET PO SCH ×3 (08:21→18:06)
[2023-06-23] MEDS: APIXABAN 5 MG TABLET PO SCH ×2 (08:36→21:55)
[2023-06-23] MEDS: NIFEdipine XL 60 MG TABSR PO SCH ×2 (08:36→21:55)
[2023-06-23] MEDS: NEPRO (VANILLA) 237 ML CAN PO SCH (08:37)
[2023-06-23] MEDS: hydrALAZINE HCL 20 MG/1 ML VIAL IV PRN (08:40)
[2023-06-23] MEDS: CEFAZOLIN 1 G in IV DEXTROSE 5% 50 ML IV SCH (09:00)
[2023-06-23] MEDS ORDERED: diphenhydrAMINE 25 MG CAP PO PRN (13:15)
[2023-06-23 13:30] VITALS: BP 129/77; TEMP 98.9; O2SAT 93
[2023-06-23] MEDS: MICAFUNGIN SODIUM 100 MG in IV NORMAL SALINE 100 ML IV SCH (15:25)
[2023-06-23 16:00] VITALS: BP 175/90; TEMP 98.7; O2SAT 95
[2023-06-23 20:00] VITALS: BP 144/88; TEMP 99; O2SAT 95
[2023-06-24] VITALS (7 sets, daily range): BP systolic 130–172; BP diastolic 78–93; TEMP 96–99.3; O2SAT 95–98
[2023-06-24] MEDS: PANTOPRAZOLE SODIUM 40 MG TABLET.DR PO SCH (06:27)
[2023-06-24] MEDS: BLOOD SUGAR DIAGNOSTIC 1 EACH STRIP VI SCH ×4 (06:30→20:52)
[2023-06-24 06:48] LABS: BASOPHILS # (AUTO) 0.1 K/UL (0.0-0.2); BASOPHILS % (AUTO) 1.8 % (0.0-2.0); EOSINOPHILS # (AUTO) 0.3 K/uL (0.0-0.7); EOSINOPHILS % (AUTO) 5.9 % (0.0-7.0); HEMATOCRIT 22.8 % (36.7-47.1); HEMOGLOBIN 7.9 g/dL (12.5-16.3); LYMPHOCYTES # (AUTO) 0.9 K/uL (0.8-4.8); LYMPHOCYTES % (AUTO) 17.7 % (20.5-51.5); MEAN CORPUSCULAR HGB CONC 35 g/dL (32.5-36.3); MEAN CORPUSCULAR VOLUME 95.6 fL (73.0-96.2); MONOCYTES # (AUTO) 0.4 K/uL (0.1-1.30); MONOCYTES % (AUTO) 7.8 % (0.0-11.0); NEUTROPHILS # (AUTO) 3.4 K/uL (1.8-8.9); NEUTROPHILS % (AUTO) 66.8 % (38.5-71.5); PLATELET COUNT (AUTO) 203 K/uL (152-348); WHITE BLOOD COUNT (AUTO) 5.1 K/uL (3.6-10.2)
[2023-06-24 07:06] LABS: DIFFERENTIAL COMMENT 1; RED BLOOD CELL COUNT(AUTO) 2.39 MIL/uL (4.06-5.63)
[2023-06-24 07:15] LABS: CALCIUM 8.5 mg/dL (8.5-10.1); MAGNESIUM 2.4 mg/dL (1.8-2.4); PHOSPHOROUS 5.7 mg/dL (2.5-4.9); POTASSIUM 4.2 mmol/L (3.5-5.1)
[2023-06-24 08:10] LABS: CREATININE 7.6 mg/dL (0.6-1.3)
[2023-06-24] MEDS: APIXABAN 5 MG TABLET PO SCH ×2 (08:33→20:51)
[2023-06-24] MEDS: NIFEdipine XL 60 MG TABSR PO SCH ×2 (08:34→20:51)
[2023-06-24] MEDS: SEVELAMER CARBONATE 800 MG TABLET PO SCH ×3 (08:34→17:28)
[2023-06-24] MEDS: NEPRO (VANILLA) 237 ML CAN PO SCH (08:35)
[2023-06-24] MEDS: CEFAZOLIN 1 G in IV DEXTROSE 5% 50 ML IV SCH (09:10)
[2023-06-24] MEDS: MORPHINE SULFATE 2 MG/1 ML DISP.SYRIN IV PRN (10:29)
[2023-06-24] MEDS: hydrALAZINE HCL 20 MG/1 ML VIAL IV PRN (22:10)
[2023-06-25] MEDS: MORPHINE SULFATE 2 MG/1 ML DISP.SYRIN IV PRN ×2 (01:33→14:36)
[2023-06-25 04:00] VITALS: BP 150/86; TEMP 98.5; O2SAT 96
[2023-06-25 06:29] LABS: BASOPHILS # (AUTO) 0.1 K/UL (0.0-0.2); BASOPHILS % (AUTO) 1.2 % (0.0-2.0); EOSINOPHILS # (AUTO) 0.4 K/uL (0.0-0.7); EOSINOPHILS % (AUTO) 6.3 % (0.0-7.0); HEMATOCRIT 22.6 % (36.7-47.1); HEMOGLOBIN 7.7 g/dL (12.5-16.3); LYMPHOCYTES # (AUTO) 1.2 K/uL (0.8-4.8); LYMPHOCYTES % (AUTO) 19.8 % (20.5-51.5); MEAN CORPUSCULAR HEMOGLOBIN 32.6 uug (23.8-33.4); MEAN CORPUSCULAR HGB CONC 34 g/dL (32.5-36.3); MEAN CORPUSCULAR VOLUME 96.1 fL (73.0-96.2); MONOCYTES # (AUTO) 0.5 K/uL (0.1-1.30); MONOCYTES % (AUTO) 7.8 % (0.0-11.0); NEUTROPHILS # (AUTO) 3.8 K/uL (1.8-8.9); NEUTROPHILS % (AUTO) 64.9 % (38.5-71.5); PLATELET COUNT (AUTO) 187 K/uL (152-348); RED CELL DISTRIBUTION WIDTH 14.8 % (12.1-16.2); WHITE BLOOD COUNT (AUTO) 5.9 K/uL (3.6-10.2)
[2023-06-25] MEDS: BLOOD SUGAR DIAGNOSTIC 1 EACH STRIP VI SCH ×4 (06:32→20:39)
[2023-06-25 06:38] LABS: CALCIUM 7.8 mg/dL (8.5-10.1); PHOSPHOROUS 5.9 mg/dL (2.5-4.9); POTASSIUM 4.5 mmol/L (3.5-5.1)
[2023-06-25] MEDS: PANTOPRAZOLE SODIUM 40 MG TABLET.DR PO SCH (06:38)
[2023-06-25 06:43] LABS: DIFFERENTIAL COMMENT 1; RED BLOOD CELL COUNT(AUTO) 2.35 MIL/uL (4.06-5.63)
[2023-06-25 07:04] LABS: MAGNESIUM 2.6 mg/dL (1.8-2.4)
[2023-06-25 07:45] VITALS: BP 161/94; TEMP 98.3; O2SAT 93
[2023-06-25 08:01] LABS: CREATININE 9.9 mg/dL (0.6-1.3)
[2023-06-25] MEDS: SEVELAMER CARBONATE 800 MG TABLET PO SCH ×3 (08:25→17:26)
[2023-06-25] MEDS: NIFEdipine XL 60 MG TABSR PO SCH ×2 (08:25→23:09)
[2023-06-25] MEDS: APIXABAN 5 MG TABLET PO SCH ×2 (08:26→23:08)
[2023-06-25] MEDS: CEFAZOLIN 1 G in IV DEXTROSE 5% 50 ML IV SCH (09:00)
[2023-06-25] MEDS: NEPRO (VANILLA) 237 ML CAN PO SCH (09:06)
[2023-06-25 12:00] VITALS: BP 143/97; TEMP 97.9; O2SAT 99
[2023-06-25 21:31] VITALS: BP 174/105; TEMP 98.2; O2SAT 99
[2023-06-25 23:12] VITALS: BP 180/100; TEMP 98; O2SAT 99
[2023-06-26] MEDS: LORAZEPAM 2 MG/1 ML VIAL IV PRN (01:47)
[2023-06-26] MEDS: BLOOD SUGAR DIAGNOSTIC 1 EACH STRIP VI SCH ×3 (06:46→16:08)
[2023-06-26] MEDS: PANTOPRAZOLE SODIUM 40 MG TABLET.DR PO SCH (06:46)
[2023-06-26] MEDS: SEVELAMER CARBONATE 800 MG TABLET PO SCH ×3 (08:35→17:26)
[2023-06-26] MEDS: NIFEdipine XL 60 MG TABSR PO SCH (08:36)
[2023-06-26] MEDS: CEFAZOLIN 1 G in IV DEXTROSE 5% 50 ML IV SCH (08:37)
[2023-06-26] MEDS: APIXABAN 5 MG TABLET PO SCH (08:39)
[2023-06-26] MEDS: NEPRO (VANILLA) 237 ML CAN PO SCH (08:46)
[2023-06-26 11:31] VITALS: BP 157/99; TEMP 98.5; O2SAT 93
[2023-06-26] MEDS: hydrALAZINE HCL 20 MG/1 ML VIAL IV PRN (11:52)
[2023-06-26 15:31] VITALS: BP 154/93; TEMP 98.4; O2SAT 96
[2023-06-26] MEDS: ACETAMINOPHEN 325 MG TABLET PO PRN (16:44)
[2023-06-26] MEDS ORDERED: APIX5TAB PO (17:57)
[2023-06-26] MEDS ORDERED: SEVE800T7 PO (17:57)
[2023-06-26] MEDS ORDERED: CEFA1FRO IV (17:57)
== END 2023-06-26 18:41 | disposition home health service (06) | DRG 721 ==
LOC: ER 19:07 → TELE3 23:06 → MEDSURG3 06-13 10:00
PROVIDERS: ADMIT Nurse Practitioner Acute Care; ATTEND Nurse Practitioner Acute Care
PROC: 5A1D70Z Performance of Urinary Filtration, Intermittent, Less than 6 Hours Per Day (ICD-10-PCS; 2023-06-11)
PROC: 02PYX3Z Removal of Infusion Device from Great Vessel, External Approach (ICD-10-PCS; principal; 2023-06-15)
PROC: B518ZZA Fluoroscopy of Superior Vena Cava, Guidance (ICD-10-PCS; 2023-06-17)
PROC: 02HV33Z Insertion of Infusion Device into Superior Vena Cava, Percutaneous Approach (ICD-10-PCS; 2023-06-17)
PROC: 05HB33Z Insertion of Infusion Device into Right Basilic Vein, Percutaneous Approach (ICD-10-PCS; 2023-06-26)
DX: T80.211A Bloodstream infection due to central venous catheter, initial encounter (principal); A41.01 Sepsis due to Methicillin susceptible Staphylococcus aureus; J12.82 Pneumonia due to coronavirus disease 2019; J96.01 Acute respiratory failure with hypoxia; A41.89 Other specified sepsis; G93.41 Metabolic encephalopathy; U07.1 COVID-19; N18.6 End stage renal disease; B37.7 Candidal sepsis; J15.9 Unspecified bacterial pneumonia; E87.5 Hyperkalemia; D63.1 Anemia in chronic kidney disease; I13.2 Hypertensive heart and chronic kidney disease with heart failure and with stage 5 chronic kidney disease, or end stage renal disease; I50.32 Chronic diastolic (congestive) heart failure; Z99.2 Dependence on renal dialysis; I25.2 Old myocardial infarction; I25.10 Atherosclerotic heart disease of native coronary artery without angina pectoris; Z91.199 Patient's noncompliance with other medical treatment and regimen due to unspecified reason; Z86.14 Personal history of Methicillin resistant Staphylococcus aureus infection; Z79.899 Other long term (current) drug therapy; M25.551 Pain in right hip; E87.1 Hypo-osmolality and hyponatremia; E78.5 Hyperlipidemia, unspecified; G62.9 Polyneuropathy, unspecified; N25.0 Renal osteodystrophy; I08.1 Rheumatic disorders of both mitral and tricuspid valves; Y84.8 Other medical procedures as the cause of abnormal reaction of the patient, or of later complication, without mention of misadventure at the time of the procedure; Y92.009 Unspecified place in unspecified non-institutional (private) residence as the place of occurrence of the external cause
CPT/HCPCS: 36415; 36600; 70030-TC; 70450; 71045; 71250; 72192; 73700; 83605; 83735; 84100; 84484; 85025; 86140; 86803; 87040; 87077; 87806; 90937; 93005; 93307; 94760; A4649; A4663; A9150; C1769; G0378; J0360; J0456; J0690; J0696; J1100; J1170; J1200; J1630; J1644; J1650; J1815; J2060; J2248; J2250; J2270; J2405; J3010; J3490; J3535; J7040; J7050; Q0144; Q0163; Q9967

== ENCOUNTER 2023-08-20 14:53 | Inpatient (IN) | payer OTHER ==
[2023-08-20] VITALS (7 sets, daily range): BP systolic 130–165; BP diastolic 79–96; TEMP 97–99; O2SAT 89–94
[~2023-08-20] VITALS: Ht 170.2 cm; Wt 67.6 kg
[~2023-08-20 14:53] MED LIST changes: +APIX5TAB PO; +CEFA1FRO IV; -ERYT400T83 PO; -GABA300C PO; -HYDR50TA68 PO; -LABE200T8 PO; -OMEP20CA15 PO; -OXYC-128 PO; -SILV50CR32 TP; -TRAM50TA2 PO
[2023-08-20 15:40] LABS: ALBUMIN 3.5 g/dL (3.4-5.0); CALCIUM 8.6 mg/dL (8.5-10.1); POTASSIUM 5.4 mmol/L (3.5-5.1); TOTAL PROTEIN, SERUM 7.8 g/dL (6.4-8.2)
[2023-08-20 15:42] LABS: BASOPHILS # (AUTO) 0.1 K/UL (0.0-0.2); BASOPHILS % (AUTO) 1.4 % (0.0-2.0); EOSINOPHILS # (AUTO) 0.8 K/uL (0.0-0.7); EOSINOPHILS % (AUTO) 14.6 % (0.0-7.0); LYMPHOCYTES # (AUTO) 0.9 K/uL (0.8-4.8); LYMPHOCYTES % (AUTO) 15.9 % (20.5-51.5); MEAN CORPUSCULAR HEMOGLOBIN 31.3 uug (23.8-33.4); MEAN CORPUSCULAR HGB CONC 34 g/dL (32.5-36.3); MEAN CORPUSCULAR VOLUME 92.2 fL (73.0-96.2); MONOCYTES # (AUTO) 0.3 K/uL (0.1-1.30); NEUTROPHILS # (AUTO) 3.5 K/uL (1.8-8.9); NEUTROPHILS % (AUTO) 63.1 % (38.5-71.5); PLATELET COUNT (AUTO) 164 K/uL (152-348); RED CELL DISTRIBUTION WIDTH 15.6 % (12.1-16.2); WHITE BLOOD COUNT (AUTO) 5.6 K/uL (3.6-10.2)
[2023-08-20 15:45] LABS: RED BLOOD CELL COUNT(AUTO) 2.06 MIL/uL (4.06-5.63)
[2023-08-20 15:49] LABS: DIFFERENTIAL COMMENT 1; HEMOGLOBIN 6.5 g/dL (12.5-16.3)
[2023-08-20 15:50] LABS: CREATININE 9.4 mg/dL (0.6-1.3)
[2023-08-20] MEDS ORDERED: LORAZEPAM 0.5 MG TABLET PO ONE (16:00)
[2023-08-20] MEDS ORDERED: LORAZEPAM 1 MG TABLET ONE (16:03)
[2023-08-20] MEDS ORDERED: SODIUM POLYSTYRENE SULFONATE 15 G/60 ML LIQUID UDC PO ONE ×2 (16:45→19:30)
[2023-08-20] MEDS ORDERED: SODIUM POLYSTYRENE SULFONATE 15 G/60 ML LIQUID UDC ONE (17:03)
[2023-08-20 17:28] LABS: ANISOCYTOSIS 1+; EOSINOPHILS % (MANUAL) 13 % (0-8); LYMPHOCYTES % (MANUAL) 19 % (20-40); MONOCYTES % (MANUAL) 5 % (2-10); NEUTROPHILS % (MANUAL) 63 % (42-75); PLATELET ESTIMATE ADEQUATE
[2023-08-20 17:29] LABS: HYPOCHROMASIA 1+
[2023-08-20] MEDS ORDERED: ACETAMINOPHEN 325 MG TABLET PO PRN (19:30)
[2023-08-20] MEDS ORDERED: REMEDY ESSENTIAL ZINC PASTE 113 GM TP PRN (19:30)
[2023-08-20] MEDS ORDERED: ONDANSETRON 4 MG/2 ML VIAL IV PRN (19:30)
[2023-08-20] MEDS: NIFEdipine XL 60 MG TABSR PO SCH (21:30)
[2023-08-20] MEDS: APIXABAN 5 MG TABLET PO SCH (21:32)
[2023-08-21] VITALS (7 sets, daily range): BP systolic 135–204; BP diastolic 80–131; TEMP 97.7–99; O2SAT 88–100
[2023-08-21 06:54] LABS: BASOPHILS % (AUTO) 1.1 % (0.0-2.0); EOSINOPHILS % (AUTO) 15.5 % (0.0-7.0); HEMATOCRIT 22.7 % (36.7-47.1); HEMOGLOBIN 7.7 g/dL (12.5-16.3); LYMPHOCYTES # (AUTO) 0.9 K/uL (0.8-4.8); LYMPHOCYTES % (AUTO) 13.9 % (20.5-51.5); MEAN CORPUSCULAR HEMOGLOBIN 31.6 uug (23.8-33.4); MEAN CORPUSCULAR HGB CONC 34 g/dL (32.5-36.3); MEAN CORPUSCULAR VOLUME 93.3 fL (73.0-96.2); MONOCYTES % (AUTO) 5.2 % (0.0-11.0); NEUTROPHILS % (AUTO) 64.3 % (38.5-71.5); PLATELET COUNT (AUTO) 170 K/uL (152-348); RED CELL DISTRIBUTION WIDTH 15.6 % (12.1-16.2); WHITE BLOOD COUNT (AUTO) 6.3 K/uL (3.6-10.2)
[2023-08-21 06:55] LABS: BASOPHILS # (AUTO) 0.1 K/UL (0.0-0.2); MONOCYTES # (AUTO) 0.3 K/uL (0.1-1.30)
[2023-08-21 07:05] LABS: DIFFERENTIAL COMMENT 1; RED BLOOD CELL COUNT(AUTO) 2.44 MIL/uL (4.06-5.63)
[2023-08-21 07:17] LABS: ALBUMIN 3.4 g/dL (3.4-5.0); BILIRUBIN,TOTAL 1.1 mg/dL (0.2-1.0); CALCIUM 8.9 mg/dL (8.5-10.1); MAGNESIUM 2.9 mg/dL (1.8-2.4); PHOSPHOROUS 6.2 mg/dL (2.5-4.9); POTASSIUM 5.5 mmol/L (3.5-5.1); TOTAL PROTEIN, SERUM 7.9 g/dL (6.4-8.2)
[2023-08-21 07:18] LABS: CREATININE 10.6 mg/dL (0.6-1.3)
[2023-08-21] MEDS: NIFEdipine XL 60 MG TABSR PO SCH ×2 (08:15→20:09)
[2023-08-21] MEDS: SEVELAMER CARBONATE 800 MG TABLET PO SCH ×3 (08:15→17:18)
[2023-08-21] MEDS: APIXABAN 5 MG TABLET PO SCH ×2 (08:20→20:08)
[2023-08-21 08:58] LABS: IRON, SERUM 40 ug/dL (50-175)
[2023-08-21] MEDS ORDERED: EPOETIN ALFA 10,000 UNITS/ML VIAL SQ ONE (11:15)
[2023-08-21] MEDS ORDERED: EPOETIN ALFA-EPBX 10,000 UNIT/ML VIAL SQ ONE (13:00)
[2023-08-21] MEDS ORDERED: hydrALAZINE HCL 50 MG TABLET PO SCH (18:00)
[2023-08-21] MEDS: hydrALAZINE HCL 50 MG TABLET PO SCH (23:07)
[2023-08-22 05:00] VITALS: BP 170/95; TEMP 98; O2SAT 99
[2023-08-22] MEDS: hydrALAZINE HCL 50 MG TABLET PO SCH (06:44)
[2023-08-22 06:50] LABS: BASOPHILS # (AUTO) 0.1 K/UL (0.0-0.2); BASOPHILS % (AUTO) 1.6 % (0.0-2.0); EOSINOPHILS % (AUTO) 19.4 % (0.0-7.0); HEMATOCRIT 24.3 % (36.7-47.1); HEMOGLOBIN 8.4 g/dL (12.5-16.3); LYMPHOCYTES # (AUTO) 0.8 K/uL (0.8-4.8); LYMPHOCYTES % (AUTO) 15.4 % (20.5-51.5); MEAN CORPUSCULAR HEMOGLOBIN 31.6 uug (23.8-33.4); MEAN CORPUSCULAR HGB CONC 35 g/dL (32.5-36.3); MEAN CORPUSCULAR VOLUME 91.8 fL (73.0-96.2); MONOCYTES # (AUTO) 0.3 K/uL (0.1-1.30); MONOCYTES % (AUTO) 6.5 % (0.0-11.0); NEUTROPHILS % (AUTO) 57.1 % (38.5-71.5); PLATELET COUNT (AUTO) 170 K/uL (152-348); RED BLOOD CELL COUNT(AUTO) 2.65 MIL/uL (4.06-5.63); RED CELL DISTRIBUTION WIDTH 15.5 % (12.1-16.2); WHITE BLOOD COUNT (AUTO) 5.2 K/uL (3.6-10.2)
[2023-08-22 07:01] LABS: DIFFERENTIAL COMMENT 1
[2023-08-22 07:06] LABS: ALBUMIN 3.3 g/dL (3.4-5.0); BILIRUBIN,TOTAL 1.5 mg/dL (0.2-1.0); CALCIUM 8.8 mg/dL (8.5-10.1); MAGNESIUM 2.7 mg/dL (1.8-2.4); PHOSPHOROUS 4.9 mg/dL (2.5-4.9); POTASSIUM 4.9 mmol/L (3.5-5.1); TOTAL PROTEIN, SERUM 7.6 g/dL (6.4-8.2)
[2023-08-22 07:09] LABS: CREATININE 9.6 mg/dL (0.6-1.3)
[2023-08-22] MEDS: NIFEdipine XL 60 MG TABSR PO SCH (09:17)
[2023-08-22] MEDS: SEVELAMER CARBONATE 800 MG TABLET PO SCH ×2 (09:17→11:40)
[2023-08-22] MEDS: APIXABAN 5 MG TABLET PO SCH (09:19)
[2023-08-22 11:45] VITALS: BP 172/106; TEMP 98.5; O2SAT 95
[2023-08-22] MEDS ORDERED: hydrALAZINE HCL 25 MG TABLET PO SCH (11:45)
[2023-08-22] MEDS ORDERED: CLONIDINE HCL 0.1 MG TABLET PO ONE (13:45)
[2023-08-22] MEDS ORDERED: HYDR50TA68 PO (15:35)
[2023-08-22 15:54] VITALS: BP 174/114; TEMP 98.8; O2SAT 96
[2023-08-23 02:06] LABS: HEPATITIS B SURFACE AB, QUAL Reactive (.); HEPATITIS B SURFACE AG Negative (Negative)
[2023-08-23] MEDS ORDERED: PANTOPRAZOLE SODIUM 40 MG TABLET.DR PO SCH (07:00)
== END 2023-08-22 16:15 | disposition home or self-care (01) | DRG 663 ==
LOC: ER 15:10 → TELE3 17:54
PROVIDERS: ADMIT Internal Medicine; ATTEND Internal Medicine
PROC: 30233N1 Transfusion of Nonautologous Red Blood Cells into Peripheral Vein, Percutaneous Approach (ICD-10-PCS; principal; 2023-08-20)
PROC: 5A1D70Z Performance of Urinary Filtration, Intermittent, Less than 6 Hours Per Day (ICD-10-PCS; 2023-08-21)
DX: D63.8 Anemia in other chronic diseases classified elsewhere (principal); I13.2 Hypertensive heart and chronic kidney disease with heart failure and with stage 5 chronic kidney disease, or end stage renal disease; N18.6 End stage renal disease; Z99.2 Dependence on renal dialysis; M89.8X9 Other specified disorders of bone, unspecified site; E87.5 Hyperkalemia; E78.5 Hyperlipidemia, unspecified; I25.2 Old myocardial infarction; I25.10 Atherosclerotic heart disease of native coronary artery without angina pectoris; Z87.01 Personal history of pneumonia (recurrent); Z86.16 Personal history of COVID-19; Z79.01 Long term (current) use of anticoagulants; I50.32 Chronic diastolic (congestive) heart failure
CPT/HCPCS: 36415; 70030-TC; 71045; 83550; 83735; 84100; 84484; 85025; 85610; 86706; 86850; 86900; 86901; 86920; 87340; 90937; 93005; A4606; A4663; G0378; J0885; P9016

== ENCOUNTER 2024-04-09 10:45 | Emergency (ER) | payer OTHER ==
[~2024-04-09] VITALS: Ht 170.2 cm; Wt 68.0 kg
[~2024-04-09 10:45] MED LIST changes: -CEFA1FRO IV; +HYDR50TA68 PO
[2024-04-09 11:37] VITALS: BP 156/91; O2SAT 97
== END 2024-04-09 11:37 | disposition home or self-care (01) ==
LOC: ER 10:45
DX: I13.2 Hypertensive heart and chronic kidney disease with heart failure and with stage 5 chronic kidney disease, or end stage renal disease (principal); N18.6 End stage renal disease; I50.9 Heart failure, unspecified; Z99.2 Dependence on renal dialysis; I25.2 Old myocardial infarction; I25.10 Atherosclerotic heart disease of native coronary artery without angina pectoris; E78.5 Hyperlipidemia, unspecified; Z79.899 Other long term (current) drug therapy
CPT/HCPCS: A4606; A4663